=== PATIENT | female | born 1945 | race Caucasian/White ===

== ENCOUNTER → 2016-08-06 | Outpatient (CLI) | payer MEDICARE ==
--- NOTE | 2016-08-06 08:55 | REP ---
PA and lateral chest: Comparison is 01/22/2010. There is a moderate diffuse bilateral interstitial coarsening, not significantly change taking differences in radiographic penetration and/or. This suggests chronic lung disease. There are no acute infiltrates or effusions. No masses. There is thoracic scoliosis convex left, superiorly and right in the mid thoracic spine. This is not significantly changed. Calcified left hilar nodes are again noted, unchanged. The kendall, mediastinum, bony thorax are otherwise unremarkable. Impression: There are no new or acute cardiopulmonary findings. There are chronic stable findings as described.
== END ==
LOC: M CLY 08:14
PROVIDERS: ATTEND Family Medicine
DX: R05 Cough (principal)

== ENCOUNTER → 2016-08-16 | Outpatient (REF) | payer MEDICARE | LOC: M SFHCCLAY 11:08 | PROVIDERS: ATTEND Family Medicine | DX: R30.0 Dysuria (principal) ==

== ENCOUNTER → 2016-08-29 | Outpatient (REF) | payer MEDICARE | LOC: M SFHCCLAY 11:50 | PROVIDERS: ATTEND Family Medicine | DX: R50.9 Fever, unspecified (principal); R52 Pain, unspecified; R30.0 Dysuria ==

== ENCOUNTER → 2018-01-12 | Outpatient (REF) | payer MEDICARE | LOC: M SFHCCLAY 16:40 | DX: R30.0 Dysuria (principal) | CPT/HCPCS: 87086 ==

== ENCOUNTER → 2018-01-19 | Outpatient (CLI) | payer MEDICARE | LOC: M CLY 09:44 | DX: R05 Cough (principal); R06.02 Shortness of breath | CPT/HCPCS: 71046 ==

== ENCOUNTER → 2018-03-02 | Outpatient (CLI) | payer MEDICARE ==
--- NOTE | 2018-03-02 10:59 | PFTRPT ---
Height: 63.00 Inches Weight: 137.00 Lbs BSA: 1.65 Diagnosis: R06.02 DATE OF PROCEDURE: 03/02/2018 ORDERED BY: Dr. Celestina Fox Spirometry: Study of excellent technical quality. Forced vital capacity normal. FEV1 is in proportion. Obstructive index is, therefore, normal. Flow Volume Loop: Expiratory limb of the flow volume loop is normal. Lung Volumes: Total lung capacity normal. Residual volume is in proportion. Diffusing Capacity: Diffusing capacity is significantly reduced and does not correct for alveolar volume. Hemoglobin: No hemoglobin available for correction. Airway Mechanics: Airways resistance and conductance are normal. IMPRESSION: Significant diffusing capacity impairment. Please correlate clinically. MTDD
== END ==
LOC: M CARPUL 06:40
PROVIDERS: ATTEND Family Medicine
DX: R06.02 Shortness of breath (principal); J84.10 Pulmonary fibrosis, unspecified

== ENCOUNTER → 2018-03-24 | Outpatient (REF) | payer MEDICARE ==
[2018-03-24 18:37] LABS: BLOOD UREA NITROGEN 22 MG/DL (7-18); CALCIUM LEVEL 8.6 MG/DL (8.8-10.2); CARBON DIOXIDE LEVEL 28 MEQ/L (21-32); CHLORIDE LEVEL 108 MEQ/L (98-107); CREATININE FOR GFR 0.75 MG/DL (0.55-1.30); GLOMERULAR FILTRATION RATE > 60.0 (>39); GLUCOSE, FASTING 83 MG/DL (70-100); POTASSIUM SERUM 4.2 MEQ/L (3.5-5.1); SODIUM LEVEL 143 MEQ/L (136-145)
[2018-03-24 18:41] LABS: CHOLESTEROL RISK RATIO 3.381 (<5)
== END ==
LOC: M SFHCCLAY 09:38
PROVIDERS: ATTEND Family Medicine
DX: Z83.3 Family history of diabetes mellitus (principal); Z13.1 Encounter for screening for diabetes mellitus; Z13.220 Encounter for screening for lipoid disorders

== ENCOUNTER → 2018-03-27 | Outpatient (CLI) | payer MEDICARE ==
[2018-03-31 01:34] LABS: ANCA-ATYPICAL <1:20 titer (Neg:<1:20); ANTI DOUBLE STRAND-DNA AB 2 IU/mL (0-9); ANTINUCLEAR ANTIBODIES DIRECT Negative (Negative); CYTOPLASMIC NEUTROP AB ANCA-C <1:20 titer (Neg:<1:20); PERINUCLEAR AB ANCA-P <1:20 titer (Neg:<1:20); RNP ANTIBODIES 0.3 AI (0.0-0.9); SJOGREN'S ANTI SS-A <0.2 AI (0.0-0.9); SJOGREN'S ANTI SS-B <0.2 AI (0.0-0.9); SMITH ANTIBODIES <0.2 AI (0.0-0.9)
== END ==
LOC: M SMT 10:41
PROVIDERS: ATTEND Internal Medicine Pulmonary Disease
DX: R91.8 Other nonspecific abnormal finding of lung field (principal)

== ENCOUNTER → 2018-04-07 | Outpatient (CLI) | payer MEDICARE ==
--- NOTE | 2018-04-07 11:53 | REP ---
CT of the chest without IV contrast: Comparison studies are the plain film PA and lateral views of the chest dated 01/19/2018, 08/06/2016 and 02/01/2010. There are no acute infiltrates or pleural effusions. There is a 9 mm left lower lobe lung nodule on image 128. There is a diffuse interstitial coarsening throughout all lobes of both lungs. Additionally there is subpleural honeycombing predominately in the lower lobes bilaterally. Findings are compatible with chronic interstitial lung disease and interstitial fibrosis. There is no mediastinal or axillary lymph node enlargement. There are multiple calcified anterior mediastinal lymph nodes, likely granulomas disease. The study is insensitive for hilar lymph node enlargement in the absence of IV contrast. In the visualized upper abdomen. There are multiple calcified granulomas in the spleen. There are nonobstructive calculi in the visualized portion of the left renal upper pole, there is a right renal upper pole cyst. Impression: Diffuse coarsened interstitium accompanied by some pleural honeycombing predominately in the lung bases compatible with chronic interstitial lung disease and interstitial fibrosis. There are no acute infiltrates or pleural effusions. There is a left lower lobe 9 mm nodule. There are calcified granulomas in the anterior mediastinum and spleen. There are nonobstructive left renal calculi. There is a right renal upper pole cyst. Electronically Signed by Bear Damon MD 04/07/2018 11:44 A
== END ==
LOC: M RAD 09:04
PROVIDERS: ATTEND Internal Medicine Pulmonary Disease
DX: R91.8 Other nonspecific abnormal finding of lung field (principal)

== ENCOUNTER → 2018-04-29 | Outpatient (REF) | payer MEDICARE ==
[2018-04-29 12:02] LABS: INR 0.94; PARTIAL THROMBOPLASTIN TIME 28.6 SECONDS (25.4-37.6); PROTHROMBIN TIME 12.7 SECONDS (12.1-14.4)
== END ==
LOC: M LABDRAWC 11:21
PROVIDERS: ATTEND Internal Medicine Pulmonary Disease
DX: R91.1 Solitary pulmonary nodule (principal)

== ENCOUNTER → 2018-05-04 | Outpatient (CLI) | payer MEDICARE ==
[~2018-05-04] MED LIST: LIDOCAINE 1% MDV 20ML VIAL As Ordered ONE
--- NOTE | 2018-05-04 12:03 | REP ---
CHEST, SINGLE VIEW: Single view of the chest is performed status post left lung biopsy. There is no pneumothorax. There are fibrotic changes again noted bilaterally, more so in the lung bases. Cardiomediastinal silhouette is unchanged. IMPRESSION: No pneumothorax status post left lung biopsy. Electronically Signed by Bear Donahue MD 05/06/2018 10:54 A
--- NOTE | 2018-05-05 21:11 | REP ---
CT-GUIDED LEFT LOWER LOBE LUNG BIOPSY The procedure was performed under the direct supervision of Dr. Donahue. The patient has a history of a 9 mm nodule in the left lower lobe seen on a previous CT scan dated 04/07/2018. The risks and benefits of the procedure were explained to the patient and informed consent was obtained. The left lower lobe nodule was localized using CT guidance. The skin was prepped and draped in a sterile fashion. 1% lidocaine was used as a local anesthetic. Using CT guidance a 19/20 gauge coaxial needle biopsy system was inserted and advanced into the nodule. Four core biopsy samples were obtained and sent to lab. The patient tolerated the procedure well and there were no immediate complications. After the appropriate amount of monitored convalescence the patient was discharged from the department. Reviewed by KRAIG Ann 05/04/2018 03:17 P Electronically Signed by Bear Donahue MD 05/05/2018 09:03 P
== END ==
LOC: M RADPRO 08:08
PROVIDERS: ATTEND Internal Medicine Pulmonary Disease
DX: D14.32 Benign neoplasm of left bronchus and lung (principal)

== ENCOUNTER → 2018-06-02 | Outpatient (REF) | payer MEDICARE | LOC: M SFHCCLAY 09:26 | PROVIDERS: ATTEND Family Medicine | DX: M81.0 Age-related osteoporosis without current pathological fracture (principal) ==

== ENCOUNTER → 2018-08-31 | Outpatient (CLI) | payer MEDICARE ==
--- NOTE | 2018-08-31 13:08 | REP ---
A CT of the chest without IV contrast: Comparison is 02/04/2019. There is a 9 mm lung nodule in the left lower lobe on image 41. This is unchanged. Diffuse interstitial coarsening and sub pleural honeycombing are again identified, compatible with chronic lung disease and compatible with the clinical diagnosis of pulmonary fibrosis. There are no acute infiltrates or pleural effusions. There is a borderline enlarged pretracheal lymph node measuring up to 9 mm in diameter. This is unchanged. No other mediastinal lymph node enlargement is identified. There is no axillary lymph node enlargement. The study is insensitive for hilar lymph node enlargement in the absence of IV contrast. Calcified granulomas are again identified in the anterior mediastinum and spleen. The thoracic aorta is unremarkable. Cardiac size is normal. The visualized upper abdomen is unremarkable except for splenic calcified granulomas. There is no adrenal mass. Impression: The 9 ml left lower lobe lung nodule is unchanged. The pulmonary fibrosis is unchanged. The calcified granulomas are unchanged. The renal calculi identified previously are not included on the current study. The right renal upper pole cyst is unchanged. Electronically Signed by Bear Damon MD 08/31/2018 12:58 P
== END ==
LOC: M RAD 11:31
PROVIDERS: ATTEND Internal Medicine Pulmonary Disease
DX: J84.112 Idiopathic pulmonary fibrosis (principal); N28.1 Cyst of kidney, acquired

== ENCOUNTER → 2019-06-22 | Outpatient (REF) | payer MEDICARE ==
[2019-06-22 17:25] LABS: FREE T4 0.99 NG/DL (0.76-1.46); THYROID STIMULATING HORMONE 3.01 uIU/ML (0.358-3.740)
== END ==
LOC: M SFHCCLAY 11:33
PROVIDERS: ATTEND Family Medicine
DX: R79.89 Other specified abnormal findings of blood chemistry (principal); R00.2 Palpitations

== ENCOUNTER → 2019-09-01 | Outpatient (REF) | payer MEDICARE | LOC: M SFHCCLAY 11:25 | PROVIDERS: ATTEND Family Medicine | DX: C44.310 Basal cell carcinoma of skin of unspecified parts of face (principal) ==

== ENCOUNTER → 2019-09-06 | Outpatient (CLI) | payer MEDICARE ==
--- NOTE | 2019-09-06 11:26 | REP ---
Clinical: History of pulmonary fibrosis. Technique: Axial noncontrast images from the thoracic inlet to the upper abdomen with coronal and sagittal re-formations. Comparison: 08/31/2018. Findings: The advanced subpleural fibrosis again noted. 9 mm noncalcified nodule in the apical left lower lobe is again identified and essentially unchanged. No further consolidation, nodule, or effusion. No pneumothorax. Tracheobronchial tree is patent. Mediastinal adenopathy again noted and stable. Mild stable cardiomegaly and atherosclerotic changes to the thoracic aorta and coronary arteries again noted. No pericardial effusion. Musculoskeletal structures without acute abnormality. Limited upper abdomen demonstrates normal bilateral adrenal glands. Impression: 9 mm noncalcified nodule in the apical left lower lobe remains stable. Advanced subpleural fibrosis and mediastinal adenopathy unchanged. No new acute process. Electronically Signed by Boby Obando MD 09/06/2019 11:17 A
== END ==
LOC: M RAD 10:29
PROVIDERS: ATTEND Internal Medicine Pulmonary Disease
DX: J84.10 Pulmonary fibrosis, unspecified (principal)

== ENCOUNTER → 2019-10-14 | Outpatient (REF) | payer MEDICARE | LOC: M LAB REF 08:10 | PROVIDERS: ATTEND Dermatology | DX: C44.319 Basal cell carcinoma of skin of other parts of face (principal) ==

== ENCOUNTER → 2020-02-24 | Outpatient (CLI) | payer MEDICARE ==
--- NOTE | 2020-02-24 15:37 | PFTRPT ---
Height: 63.00 Inches Weight: 135.00 Lbs BSA: 1.64 Diagnosis: J84.112 DATE: 02/24/2020 ORDERED BY: John Paul Watson M.D. Pre and post bronchodilator studies have excellent technical quality. Forced vital capacity is normal.. FEV1 is in proportion. Obstructive index is therefore normal. Expiratory limit of the flow-volume loop is normal. No significant bronchodilator response is identified. Total lung capacity is normal. Residual volume is in proportion. Diffusing capacity is severely reduced and does not correct for alveolar volume. Hemoglobin is acceptable at 12.8. Airway resistance and conductance are normal. IMPRESSION: Severe reduction in the absolute diffusion capacity. Please correlate clinically. MTDD
== END ==
LOC: M CARPUL 13:20
PROVIDERS: ATTEND Internal Medicine Pulmonary Disease
DX: J84.112 Idiopathic pulmonary fibrosis (principal)

== ENCOUNTER → 2020-08-22 | Outpatient (CLI) | payer MEDICARE ==
--- NOTE | 2020-08-22 09:00 | REP ---
INDICATION: PULM NODULE, IDEOPATHIC PULM FIBROSIS COMPARISON: Multiple examinations dating through 04/07/2018 TECHNIQUE: Axial noncontrast images from the thoracic inlet to the upper abdomen with coronal and sagittal reformations. This CT examination was performed using the following dose reduction techniques: Automated exposure control, adjustment of mA and/or kv according to the patient's size, and use of iterative reconstruction technique. FINDINGS: Noncalcified 9 mm nodule in the apical left lower lobe (series 201; image 41) remains stable through 2019. A 7 mm noncalcified peribronchial nodule in the left upper lobe (series 201; image 38) in retrospect remains stable through 2019 as well. Diffuse advanced emphysematous disease and subpleural fibrosis along with bronchiectasis and scattered scarring again noted. No acute consolidation. No new suspicious nodule or mass. No effusion. No pneumothorax. Stable mediastinal/hilar adenopathy. Atherosclerotic changes to the thoracic aorta and coronary arteries unchanged. Skeletal structures without significant acute osseous abnormality. Incidental vertebral body hemangiomas suggested. IMPRESSION: 1. Stable noncalcified nodules unchanged compared to 2019. 2. Advanced COPD/emphysematous changes along with subpleural fibrosis, bronchiectasis and scattered scarring 3. No new acute mediastinal or pleuroparenchymal process appreciated. <Electronically signed by Boby Obando > 08/22/20 0263
== END ==
LOC: M RAD 07:00
PROVIDERS: ATTEND Internal Medicine Pulmonary Disease
DX: R91.8 Other nonspecific abnormal finding of lung field (principal); R91.1 Solitary pulmonary nodule; J44.9 Chronic obstructive pulmonary disease, unspecified; J84.112 Idiopathic pulmonary fibrosis

== ENCOUNTER → 2020-08-31 | Outpatient (REF) | payer MEDICARE ==
[2020-08-31 12:05] LABS: BASO # 0.1 10^3/uL (0.0-0.2); EOS # 0.1 10^3/uL (0.0-0.5); HEMATOCRIT 43.4 % (36.0-47.0); HEMOGLOBIN 13.5 g/dl (12.0-15.5); LYMPH # 2.2 10^3/uL (1.5-5.0); LYMPH % 32.1 % (24.0-44.0); MEAN CORPUSCULAR HEMOGLOBIN 27.7 pg (27.0-33.0); MEAN CORPUSCULAR HGB CONC 31.1 g/dl (32.0-36.5); MEAN CORPUSCULAR VOLUME 89.1 fl (80.0-96.0); MONO # 0.6 10^3/uL (0.0-0.8); NEUTROPHILS # 3.9 10^3/uL (1.5-8.5); NEUTROPHILS % 56.8 % (36.0-66.0); PLATELET COUNT, AUTOMATED 251 10^3/uL (150-450); RED BLOOD COUNT 4.87 10^6/uL (4.00-5.40); WHITE BLOOD COUNT 6.9 10^3/uL (4.0-10.0)
[2020-08-31 13:17] LABS: BLOOD UREA NITROGEN 15 MG/DL (7-18); CALCIUM LEVEL 8.9 MG/DL (8.8-10.2); CARBON DIOXIDE LEVEL 29 MEQ/L (21-32); CHLORIDE LEVEL 109 MEQ/L (98-107); CREATININE FOR GFR 0.74 MG/DL (0.55-1.30); FREE T4 0.89 NG/DL (0.76-1.46); GLOMERULAR FILTRATION RATE > 60.0 (>39); GLUCOSE, FASTING 83 MG/DL (70-100); MAGNESIUM LEVEL 2.5 MG/DL (1.8-2.4); POTASSIUM SERUM 4.6 MEQ/L (3.5-5.1); SODIUM LEVEL 142 MEQ/L (136-145)
== END ==
LOC: M SFHCCLAY 08:09
PROVIDERS: ATTEND Family Medicine
DX: R53.83 Other fatigue (principal); R25.2 Cramp and spasm

== ENCOUNTER → 2020-11-21 | Outpatient (CLI) | payer MEDICARE ==
--- NOTE | 2020-11-21 10:07 | REP ---
INDICATION: R05.9, COUGH COMPARISON: 05/04/2018 TECHNIQUE: PA and lateral. FINDINGS: Advanced COPD/emphysematous changes and scattered fibrosis/scarring. No obvious acute consolidation, effusion, or pneumothorax. A very subtle small nodule in the left mid lung zone is appreciated and appears stable when compared with CT examinations dating through 2019. Skeletal structures demonstrate age-related osteopenia and degenerative changes. IMPRESSION: 1. Diffuse chronic changes without acute consolidation or effusion. 2. If the patient remains symptomatic consider chest CT for further investigation. <Electronically signed by Boby Obando > 11/21/20 1002
== END ==
LOC: M CLY 09:34
PROVIDERS: ATTEND Physician Assistant
DX: R91.8 Other nonspecific abnormal finding of lung field (principal); R05.9 Cough, unspecified

== ENCOUNTER 2020-12-13 13:35 | Emergency (ER) | payer MEDICARE ==
[~2020-12-13] VITALS: Ht 160 cm; Wt 60.7 kg
--- OUTSIDE RECORDS SUMMARY | 2020-12-13 13:43 | CCD | Continuity of Care Document ---
Author Author Ellie SERNA MD Organization Unknown Address [address] [place] [address] Phone [phone] Care Team Providers Care Grocery Supervisor Name Role Phone Celestina Fox D.O. AUTM [phone] Problems Description No Information Available Social History Type Date Description Comments Sex Unknown ETOH Use Denies alcohol use Tobacco Use Start: 02/17/86 End: 02/17/01 Patient is a forme r smoker less than one ppd x 15 years Recreational Drug Use Denies Drug Use Smoking Status Reviewed: 12/07/20 Patient is a former smoker le ss than one ppd x 15 years Allergies and adverse reactions Active Allergies Criticality Reaction | Severity Comments Date Codeine Unable to assess criticality 03/27/2018 Cortisone Unable to assess criticality 03/27/2018 Medications Active Medications SIG Qnty Indications Ordering Provide r Date Ibuprofen 200mg Tablets 1 by mouth as needed Unknown Vitamin D 1000Unit Tablets 1 by mouth every day- in winter months Unknown 00/0 Mucinex 600mg Tablets ER 12HR take one by mouth every 12 hours. Unknown Immunizations Description No Information Available Vital Signs Date Vital Result Comment 12/07/2020 2:22pm BP Systolic 120 mmHg BP Diastolic 80 mmHg Heart Rate 77 /min O2 % BldC Oximetry 98 % Height 63 inches 5'3" Weight 135.00 lb BMI (Body Mass Index) 23.9 kg/m2 [place] Body Weight 115 lb Weight 61.236 kg BSA (Body Surface Area) 1.64 m2 09/01/2020 9:08am BP Systolic 128 mmHg BP Diastolic 82 mmHg Heart Rate 61 /min O2 % BldC Oximetry 98 % Body Temperature 97.2 F Height 63 inches 5'3" Weight 136.00 lb BMI (Body Mass Index) 24.1 kg/m2 [place] Body Weight 115 lb Weight 61.690 kg BSA (Body Surface Area) 1.64 m2 Results Description No Information Available Procedures Date Code Description Status 09/01/2020 05384 Office/Outpatient Established Mo d MDM 30-39 Min Completed 09/01/2020 19955 Diffusing Capacity Completed 09/01/2020 06313 Plethysmography Determination Michelle ng Volumes & Per Airway Resist Completed 09/01/2020 89085 Spirometry Completed Medical Devices Description No Information Available Encounters Type Date Location Provider Dx Diagnosis Office Visit 09/01/2020 10:30a [facility] Pulmonary/Thoracic Nevaeh Serna MD J84.112 Idiopathic pulmonary fibrosis R91.1 Solitary pulmonary nodule Z87.891 Personal history of nicotine dependence R91.8 Other nonspecific abnormal f inding of lung field Assessments Date Code Description Provider 12/07/2020 J84.112 Idiopathic pulmonary fibrosis Steffany Serna MD 12/07/2020 J84.112 Idiopathic pulmonary fibrosis Pu lmonary Lab 12/07/2020 R91.1 Solitary pulmonary nodule Julianne Serna MD 12/07/2020 R91.8 Other nonspecific abnormal findi ng of lung field John Paul Serna MD 12/07/2020 Z87.891 Personal history of nicotine dep mamadou Serna MD 09/01/2020 J84.112 Idiopathic pulmonary fibrosis Pu lmonary Lab 09/01/2020 J84.112 Idiopathic pulmonary fibrosis Steffany Serna MD 09/01/2020 R91.1 Solitary pulmonary nodule Julianne Serna MD 09/01/2020 Z87.891 Personal history of nicotine dep endence John Paul Serna MD 09/01/2020 R91.8 Other nonspecific abnormal findi ng of lung field John Paul Serna MD Plan of Treatment Future Appointment(s):* 09/06/2021 11:00 am - John Paul Serna MD at [facility] Pulmonary/Thoracic * 09/06/2021 10:00 am - Pulmonary Lab at [facility] PulmonaryThoracic 12/07/2020 - John Paul Serna MD* J84.112 Idiopathic pulmonary fibrosis * R91.1 Solitary pulmonary nodule * R91.8 Other nonspecific abnormal finding of lung field * Z87.891 Personal history of nicotine dependence * * New Labs:* PFT/HGB Off/No Meds, Ordered: 12/07/20 * Follow up:* August with CT chest/ PFTs Functional Status Description No Information Available Mental Status Description No Information Available Referrals Refer to Reason for Referral Status Appt Date Radiology/Procedure 17985 Closed 08/22/2020
--- OUTSIDE RECORDS SUMMARY | 2020-12-13 13:43 | CCD | Continuity of Care Document ---
Author Author Ellie SERNA MD Organization Unknown Address [address] [place] [address] Phone [phone] Care Team Providers Care Garment Form Assembler Name Role Phone Celestina Fox D.O. AUTM [phone] Problems Description No Information Available Social History [...] lb BMI (Body Mass Index) 23.9 kg/m2 [place] Body Weight 115 lb Weight 61.236 kg BSA (Body Surface Area) 1.64 m2 09/01/2020 9:08am BP Systolic 128 mmHg BP Diastolic 82 mmHg Heart Rate 61 /min O2 % BldC Oximetry 98 % Body Temperature 97.2 F Height 63 inches 5'3" Weight 136.00 lb BMI (Body Mass Index) 24.1 kg/m2 [place] Body Weight 115 lb Weight 61.690 kg BSA (Body Surface Area) 1.64 m2 Results Description No Information Available Procedures Date Code Description Status 09/01/2020 98568 Office/Outpatient Established Mo d MDM 30-39 Min Completed 09/01/2020 20516 Diffusing Capacity Completed 09/01/2020 34185 Plethysmography Determination Michelle ng Volumes & Per Airway Resist Completed 09/01/2020 89940 Spirometry Completed Medical Devices Description No Information Available Encounters Type Date Location Provider Dx Diagnosis Office Visit 09/01/2020 10:30a [facility] Pulmonary/Thoracic Nevaeh Serna MD J84.112 Idiopathic pulmonary [...] am - John Paul Serna MD at [facility] Pulmonary/Thoracic * 09/06/2021 10:00 am - Pulmonary Lab at [facility] PulmonaryThoracic 12/07/2020 - John Paul Serna MD* [...] Reason for Referral Status Appt Date Radiology/Procedure 91552 Closed 08/22/2020
--- OUTSIDE RECORDS SUMMARY | 2020-12-13 13:43 | CCD | Continuity of Care Document ---
Author Author Ellie SERNA MD Organization Unknown Address [address] [place] [address] Phone [phone] Care Team Providers Care Household Chores Name Role Phone Celestina Fox D.O. AUTM [phone] Problems Description No Information Available Social History [...] lb BMI (Body Mass Index) 23.9 kg/m2 [place] Body Weight 115 lb Weight 61.236 kg BSA (Body Surface Area) 1.64 m2 09/01/2020 9:08am BP Systolic 128 mmHg BP Diastolic 82 mmHg Heart Rate 61 /min O2 % BldC Oximetry 98 % Body Temperature 97.2 F Height 63 inches 5'3" Weight 136.00 lb BMI (Body Mass Index) 24.1 kg/m2 [place] Body Weight 115 lb Weight 61.690 kg BSA (Body Surface Area) 1.64 m2 Results Description No Information Available Procedures Date Code Description Status 09/01/2020 75605 Office/Outpatient Established Mo d MDM 30-39 Min Completed 09/01/2020 49333 Diffusing Capacity Completed 09/01/2020 44654 Plethysmography Determination Michelle ng Volumes & Per Airway Resist Completed 09/01/2020 94772 Spirometry Completed Medical Devices Description No Information Available Encounters Type Date Location Provider Dx Diagnosis Office Visit 09/01/2020 10:30a [facility] Pulmonary/Thoracic Nevaeh Serna MD J84.112 Idiopathic [...] am - John Paul Serna MD at [facility] Pulmonary/Thoracic * 09/06/2021 10:00 am - Pulmonary Lab at [facility] PulmonaryThoracic 12/07/2020 - John Paul Serna [...] Reason for Referral Status Appt Date Radiology/Procedure 70702 Closed 08/22/2020
--- OUTSIDE RECORDS SUMMARY | 2020-12-13 13:43 | CCD | Continuity of Care Document ---
Author Author Ellie SERNA MD Organization Unknown Address [address] [place] [address] Phone [phone] Care Team Providers Care Drip Molder Name Role Phone Celestina Fox D.O. AUTM [phone] Problems Description No Information Available Social History [...] lb BMI (Body Mass Index) 23.9 kg/m2 [place] Body Weight 115 lb Weight 61.236 kg BSA (Body Surface Area) 1.64 m2 09/01/2020 9:08am BP Systolic 128 mmHg BP Diastolic 82 mmHg Heart Rate 61 /min O2 % BldC Oximetry 98 % Body Temperature 97.2 F Height 63 inches 5'3" Weight 136.00 lb BMI (Body Mass Index) 24.1 kg/m2 [place] Body Weight 115 lb Weight 61.690 kg BSA (Body Surface Area) 1.64 m2 Results Description No Information Available Procedures Date Code Description Status 09/01/2020 34316 Office/Outpatient Established Mo d MDM 30-39 Min Completed 09/01/2020 34866 Diffusing Capacity Completed 09/01/2020 75568 Plethysmography Determination Michelle ng Volumes & Per Airway Resist Completed 09/01/2020 13930 Spirometry Completed Medical Devices Description No Information Available Encounters Type Date Location Provider Dx Diagnosis Office Visit 09/01/2020 10:30a [facility] Pulmonary/Thoracic Nevaeh Serna MD J84.112 Idiopathic pulmonary [...] am - John Paul Serna MD at [facility] Pulmonary/Thoracic * 09/06/2021 10:00 am - Pulmonary Lab at [facility] PulmonaryThoracic 12/07/2020 - John Paul Serna MD* [...] Reason for Referral Status Appt Date Radiology/Procedure 61069 Closed 08/22/2020
--- OUTSIDE RECORDS SUMMARY | 2020-12-13 13:43 | CCD | Continuity of Care Document ---
Author Author Pulmonary Lab, Ellie Berger Organization Unknown Address [address] [place] [address] Phone [phone] Care Team Providers Care X Ray Inspector Name Role Phone Celestina Fox D.O. AUTM [phone] Problems Description No Information Available Social History [...] lb BMI (Body Mass Index) 23.9 kg/m2 [place] Body Weight 115 lb Weight 61.236 kg BSA (Body Surface Area) 1.64 m2 09/01/2020 9:08am BP Systolic 128 mmHg BP Diastolic 82 mmHg Heart Rate 61 /min O2 % BldC Oximetry 98 % Body Temperature 97.2 F Height 63 inches 5'3" Weight 136.00 lb BMI (Body Mass Index) 24.1 kg/m2 [place] Body Weight 115 lb Weight 61.690 kg BSA (Body Surface Area) 1.64 m2 Results Description No Information Available Procedures Date Code Description Status 12/07/2020 85093 Diffusing Capacity Completed 12/07/2020 45805 Plethysmography Determination Michelle ng Volumes & Per Airway Resist Completed 12/07/2020 92955 Spirometry Completed 09/01/2020 58506 Office/Outpatient Established Mo d MDM 30-39 Min Completed 09/01/2020 18264 Diffusing Capacity Completed 09/01/2020 84018 Plethysmography Determination Michelle ng Volumes & Per Airway Resist Completed 09/01/2020 25041 Spirometry Completed Medical Devices Description No Information Available Encounters Type Date Location Provider Dx Diagnosis Office Visit 09/01/2020 10:30a [facility] Pulmonary/Thoracic Nevaeh Watson MD J84.112 Idiopathic pulmonary fibrosis R91.1 Solitary pulmonary nodule Z87.891 Personal history of nicotine dependence R91.8 Other nonspecific abnormal f inding of lung field Assessments Date Code Description Provider 12/07/2020 J84.112 Idiopathic pulmonary fibrosis Steffany Watson MD 12/07/2020 J84.112 Idiopathic pulmonary fibrosis Pu lmonary Lab 12/07/2020 R91.1 Solitary pulmonary nodule Julianne Watson MD 12/07/2020 R91.8 Other nonspecific abnormal findi ng of lung field John Paul Watson MD 12/07/2020 Z87.891 Personal history of nicotine dep mamadou Watson MD 09/01/2020 J84.112 Idiopathic pulmonary fibrosis Pu lmonary Lab 09/01/2020 J84.112 Idiopathic pulmonary fibrosis Steffany Watson MD 09/01/2020 R91.1 Solitary pulmonary nodule Julianne Watson MD 09/01/2020 Z87.891 Personal history of nicotine dep endence John Paul Watson MD 09/01/2020 R91.8 Other nonspecific abnormal findi ng of lung field John Paul Watson MD Plan of Treatment Future Appointment(s):* 09/06/2021 11:00 am - John Paul Watson MD at [facility] Pulmonary/Thoracic * 09/06/2021 10:00 am - Pulmonary Lab at [facility] Pulmonary/Thoracic 12/07/2020 - John Paul Watson MD* J84.112 Idiopathic pulmonary fibrosis * R91.1 Solitary pulmonary nodule * R91.8 Other nonspecific abnormal finding of lung field * Z87.891 Personal history of nicotine dependence * * New Labs:* PFT/HGB Off/No Meds, Ordered: 12/07/20 * Comments:* ~ At this point, she is to continue her current regimen. No changes were made. She was applauded for her compliance.~ I did ask her to have her repeat pulmonary functions in 6 months. We will try to combine these with CT scan. That will be due in August, and she wonders if she can do them both then. Certainly, I have no problems with that. I will see her in return in the interim if problems arise with which we can be of assistance. * Follow up:* August with CT chest/ PFTs Functional Status Description No Information Available Mental Status Description No Information Available Referrals Refer to Reason for Referral Status Appt Date Radiology/Procedure 54516 Closed 08/22/2020
--- OUTSIDE RECORDS SUMMARY | 2020-12-13 13:43 | CCD | Continuity of Care Document ---
Author Author Pulmonary Lab, Ellie Berger Organization Unknown Address [address] [place] [address] Phone [phone] Care Team Providers Care Wireless Network Engineer Name Role Phone Ceelstina Fox D.O. AUTM [phone] Problems Description No Information Available Social History [...] lb BMI (Body Mass Index) 23.9 kg/m2 [place] Body Weight 115 lb Weight 61.236 kg BSA (Body Surface Area) 1.64 m2 09/01/2020 9:08am BP Systolic 128 mmHg BP Diastolic 82 mmHg Heart Rate 61 /min O2 % BldC Oximetry 98 % Body Temperature 97.2 F Height 63 inches 5'3" Weight 136.00 lb BMI (Body Mass Index) 24.1 kg/m2 [place] Body Weight 115 lb Weight 61.690 kg BSA (Body Surface Area) 1.64 m2 Results Description No Information Available Procedures Date Code Description Status 09/01/2020 92633 Office/Outpatient Established Mo d MDM 30-39 Min Completed 09/01/2020 46735 Diffusing Capacity Completed 09/01/2020 85765 Plethysmography Determination Michelle ng Volumes & Per Airway Resist Completed 09/01/2020 71180 Spirometry Completed Medical Devices Description No Information Available Encounters Type Date Location Provider Dx Diagnosis Office Visit 09/01/2020 10:30a [facility] Pulmonary/Thoracic Nevaeh Watson MD J84.112 Idiopathic pulmonary [...] am - John Paul Watson MD at [facility] Pulmonary/Thoracic * 09/06/2021 10:00 am - Pulmonary Lab at [facility] PulmonaryThoracic 12/07/2020 - John Paul Watson MD* J84.112 [...] Reason for Referral Status Appt Date Radiology/Procedure 77728 Closed 08/22/2020
--- OUTSIDE RECORDS SUMMARY | 2020-12-13 13:43 | CCD | Continuity of Care Document ---
Author Author Ellie SERNA MD Organization Unknown Address [address] [place] [address] Phone [phone] Care Team Providers Care Back Grinder Name Role Phone Celestina Fox D.O. AUTM [phone] Problems Description No Information Available Social History [...] lb BMI (Body Mass Index) 23.9 kg/m2 [place] Body Weight 115 lb Weight 61.236 kg BSA (Body Surface Area) 1.64 m2 09/01/2020 9:08am BP Systolic 128 mmHg BP Diastolic 82 mmHg Heart Rate 61 /min O2 % BldC Oximetry 98 % Body Temperature 97.2 F Height 63 inches 5'3" Weight 136.00 lb BMI (Body Mass Index) 24.1 kg/m2 [place] Body Weight 115 lb Weight 61.690 kg BSA (Body Surface Area) 1.64 m2 Results Description No Information Available Procedures Date Code Description Status 12/07/2020 18034 Office/Outpatient Established Mo d MDM 30-39 Min Completed 12/07/2020 01103 Diffusing Capacity Completed 12/07/2020 81929 Plethysmography Determination Michelle ng Volumes & Per Airway Resist Completed 12/07/2020 61184 Spirometry Completed 09/01/2020 68750 Office/Outpatient Established Mo d MDM 30-39 Min Completed 09/01/2020 55400 Diffusing Capacity Completed 09/01/2020 06570 Plethysmography Determination Michelle ng Volumes & Per Airway Resist Completed 09/01/2020 18992 Spirometry Completed Medical Devices Description No Information Available Encounters Type Date Location Provider Dx Diagnosis Office Visit 12/07/2020 3:15p [facility] Nevaeh Serna MD J84.112 Idiopathic pulmonary fibrosis R91.1 Solitary pulmonary nodule R91.8 Other nonspecific abnormal f inding of lung field Z87.891 Personal history of nicotine dependence Office Visit 09/01/2020 10:30a [facility] Nevaeh Serna MD J84.112 Idiopathic pulmonary [...] findi ng of lung field John Paul Seran MD 12/07/2020 Z87.891 Personal history of nicotine dep mamadou Serna MD 09/01/2020 J84.112 Idiopathic pulmonary fibrosis Pu [facility] 09/01/2020 J84.112 Idiopathic pulmonary fibrosis Steffany Serna MD 09/01/2020 R91.1 Solitary pulmonary nodule Julianne Serna MD 09/01/2020 Z87.891 Personal history of nicotine dep endnara Serna MD 09/01/2020 R91.8 Other nonspecific abnormal findi ng of lung field John Paul Serna MD Plan of Treatment Future Appointment(s):* 09/06/2021 11:00 am - John Paul Serna MD at [facility] * 09/06/2021 10:00 am - Pulmonary Lab at [facility] 12/07/2020 - John Paul Serna MD* J84.112 [...] Reason for Referral Status Appt Date Radiology/Procedure 38334 Closed 08/22/2020
--- OUTSIDE RECORDS SUMMARY | 2020-12-13 13:43 | CCD | Continuity of Care Document ---
Author Author [facility] Organization Unknown Address [address] [place] [address] Phone [phone] Care Team Providers Care Potter Or Ceramic Artist Name Role Phone Celestina Fox D.O. AUTM [phone] Problems Description No Information Available Social History [...] lb BMI (Body Mass Index) 23.9 kg/m2 [place] Body Weight 115 lb Weight 61.236 kg BSA (Body Surface Area) 1.64 m2 09/01/2020 9:08am BP Systolic 128 mmHg BP Diastolic 82 mmHg Heart Rate 61 /min O2 % BldC Oximetry 98 % Body Temperature 97.2 F Height 63 inches 5'3" Weight 136.00 lb BMI (Body Mass Index) 24.1 kg/m2 [place] Body Weight 115 lb Weight 61.690 kg BSA (Body Surface Area) 1.64 m2 Results Description No Information Available Procedures Date Code Description Status 09/01/2020 77932 Office/Outpatient Established Mo d MDM 30-39 Min Completed 09/01/2020 72144 Diffusing Capacity Completed 09/01/2020 32935 Plethysmography Determination Michelle ng Volumes & Per Airway Resist Completed 09/01/2020 83843 Spirometry Completed Medical Devices Description No Information Available Encounters Type Date Location Provider Dx Diagnosis Office Visit 09/01/2020 10:30a [facility] Nevaeh Watson MD J84.112 Idiopathic pulmonary [...] am - John Paul Watson MD at [facility] * 09/06/2021 10:00 am - Pulmonary Lab at [facility] 12/07/2020 - John Paul Watson MD* [...] Reason for Referral Status Appt Date Radiology/Procedure 53122 Closed 08/22/2020
--- OUTSIDE RECORDS SUMMARY | 2020-12-13 13:43 | CCD | Continuity of Care Document ---
Author Author [facility] Organization Unknown Address [address] [place] [address] Phone [phone] Care Team Providers Care Barber Stylist Name Role Phone Celestina Fox D.O. AUTM [phone] Problems Description No Information Available Social History [...] lb BMI (Body Mass Index) 23.9 kg/m2 [place] Body Weight 115 lb Weight 61.236 kg BSA (Body Surface Area) 1.64 m2 09/01/2020 9:08am BP Systolic 128 mmHg BP Diastolic 82 mmHg Heart Rate 61 /min O2 % BldC Oximetry 98 % Body Temperature 97.2 F Height 63 inches 5'3" Weight 136.00 lb BMI (Body Mass Index) 24.1 kg/m2 [place] Body Weight 115 lb Weight 61.690 kg BSA (Body Surface Area) 1.64 m2 Results Description No Information Available Procedures Date Code Description Status 09/01/2020 45049 Office/Outpatient Established Mo d MDM 30-39 Min Completed 09/01/2020 04835 Diffusing Capacity Completed 09/01/2020 05723 Plethysmography Determination Michelle ng Volumes & Per Airway Resist Completed 09/01/2020 34814 Spirometry Completed Medical Devices Description No Information Available Encounters Type Date Location Provider Dx Diagnosis Office Visit 09/01/2020 10:30a [facility] Nevaeh Watson MD J84.112 Idiopathic pulmonary [...] am - John Paul Watson MD at [facility] * 09/06/2021 10:00 am - Pulmonary Lab at [facility] 12/07/2020 - John Paul Watson MD* [...] Reason for Referral Status Appt Date Radiology/Procedure 36596 Closed 08/22/2020
--- OUTSIDE RECORDS SUMMARY | 2020-12-13 13:44 | CCD ---
Author Author [facility] Organization [facility] Address Unknown Phone Unavailable Care Team Providers Care Autocad Name Role Phone Ricardo Ross Unavailable PROBLEMS Type Condition ICD9-CM Code [id number] Code Onset Dates Condition S tatus W/U Status Risk SNOMED Code Notes Problem Tremor R25.1 Active confirmed 53142957 Problem Hearing loss, unspecified hearing loss type, uns pecified laterality H91.90 Active confirmed 08205427 Problem Worsening vision H54.7 Active confirmed 225 367894 Problem Basal cell carcinoma, forehead C44.319 Active confi rmed 807672495 Problem Hx of basal cell carcinoma Z85.828 Active confirmed 644876790 Problem Age-related osteoporosis without current pathological fracture M81.0 Active confirmed 11498771 Problem Pulmonary fibrosis J84.10 Active confirmed 5 8419348 Problem Vitamin D deficiency E55.9 Active confirmed 79324149 Problem Tinnitus, left H93.12 Active confirmed 97413 [id number] ALLERGIES Allergen (clinical drug ingredient) Drug/Non Drug Allergy do cumented on EMR Reaction Allergy Type Onset Date Status codeine Codeine Sulfate(NDC Code:[address]-68) N/V Drug Al lergy Active Cortisone Skin came off foot,rash Drug Allergy Active cefdinir Cefdinir(NDC Code:[address]-90) Lack of effect for UTI Dr corbett Allergy Active ENCOUNTERS from 1944 to 2020-11-24 Encounter Location Date Provider Diagnosis [facility] [phone] [place] [address] Nov, Ricardo [place] Cough R05.9 ; Acute bronchitis, unspecif ied organism J20.9 and Pulmonary fibrosis J84.10 IMMUNIZATIONS Vaccine Route Administration Date Status Moderna #2 dose COVID-19 (given elsewhere) SARSCOV2 VA C 100MCG/0.5ML IM IM Intramuscular May 08, 2020 Administered Influenza 18 yrs & older Flublok IM Intramuscular Dec 08, 2019 Administered Influenza 18 yrs & older Flublok IM Intramuscular Mar 24, 2018 Administered Influenza (High Dose 65 & up) IM Intramuscular Mar 10, 2017 A dministered Influenza (High Dose 65 & up) IM Intramuscular Mar 01, 2015 A dministered Pneumococcal Adult 0.5mL Pneumovax 23 IM Intramuscular Nov 15, 2013 Administered Moderna #1 dose COVID-19 (given elsewhere) SARSCOV2 VA C 100MCG/0.5ML IM IM Intramuscular Apr 13, 2020 Administered Pneumococcal 0.5mL Prevnar 13 IM Intramuscular Mar 01, 2015 A dministered Influenza 6mo & up Fluzone IM Intramuscular Nov 15, 2013 Admi nistered Influenza 6mo & up Fluzone IM Intramuscular Dec 26, 2010 Admi nistered SOCIAL HISTORY Tobacco Use: Social History Observation Description Date Details (start date - stop date) Former Smoker Sex Assigned At : Social History Observation Description Sex Assigned At Unknown Audit Question Answer Notes Total Score: 1 Interpretation: Alcohol Education Language: Question Answer Notes Languages spoken: Argentine Christian: Question Answer Notes Christian No caodaism beliefs that would impact health care. Sexual Hx: Question Answer Notes Had sex in the last 12 months (vaginal, oral, or anal)? No Have you ever had an STD? No Drug and Alcohol Question Answer Notes Total Score: 0 Interpretation: No problems reported Alcohol Screening: Question Answer Notes Did you have a drink containing alcohol in the past year? Ye s Points 1 Interpretation Negative How often did you have six or more drinks on one occas ion in the past year? Never (0 points) How many drinks did you have on a typica l day when you were drinking in the past year? 1 or 2 (0 points) How often did you have a drink containing alcohol in t he past year? Monthly or less (1 point) Tobacco Use: Question Answer Notes Are you a: former smoker former smoker quit 2 003 Additional Findings: Tobacco User no Additional Findings: Tobacco Non-User Current non-smoker How long has it been since you last smoked? > 10 years REASON FOR REFERRAL No Information VITAL SIGNS Weight 133 lbs Nov, Height 63 in Nov, BMI 23.56 kg/m2 Nov, Heart Rate 76 /min Nov, Respiratory Rate 18 /min Nov, Temperature 98.2 degrees Fahrenheit Nov, Oximetry 97 Nov, Blood pressure systolic 132 mm Hg Nov, Blood pressure diastolic 85 mm Hg Nov, MEDICATIONS Medication SIG (Take, Route, Frequency, Duration) Notes Start Da te End Date Status Vitamin D3 5000 UNIT/0.5ML 0.25 ml Orally Once a day for 30 day( s) May, Not-Taking Tessalon Perles 100 MG 1 capsule as needed Orally T hree times a day for 10 day(s) Nov, Active Ibuprofen 200 MG 1 tablet Orally PRN Not-Taking Doxycycline Monohydrate 100 MG 1 capsule Orally every 12 hrs for 10 day(s) Nov, Active PROCEDURES No Information RESULTS Component Value Reference Range MYRIAM CHEST 2 VIEW Reviewed date:11/21/2020 10:32:44 Interpretation:Chronic changes with no acute consolidation Performing Lab:[facility],[address]], ,[place] [address] REASON FOR VISIT cough/congestion MEDICAL (GENERAL) HISTORY Type Description Date Medical History Hyperlipidemia Medical History Hypertension Medical History Kidney stone Medical History Knee fracture: 04/2009: slip on ice Surgical History Cataracts, bilaterally 2001,2006 Surgical History Tonsillectomy As child Surgical History Tubal ligation 1970 Surgical History Teeth extraction 2009 Surgical History Colonoscopy 06/28/2015 Surgical History Lung biopsy- Dr. Watson 04/2018 Hospitalization History [facility]-kidney stone 09/04/16 Goals Section No Information Health Concerns No Information MEDICAL EQUIPMENT No Information MENTAL STATUS No Information FUNCTIONAL STATUS No Information ASSESSMENTS Encounter Date Diagnosis Assessment Notes Treatment Notes Treatm ent Clinical Notes Nov, Acute bronchitis, unspecified organism (ICD-10 - J20.9) You have bronchitis at this time, which is usually caused by a viral infection. Unfortunately, antibiotics do not help with viral infections. They are usually benign and self-limited infections, so treatment is based on symptomatic relief. However, because of your worsening symptoms and lung disease, you are at risk of having a bacterial infection. Rest and drink clear fluids throughout the day. You may use humidification and saline irrigation to help with the congestion. You may also take motrin or tylenol as needed for pain or fever. You may also consider using kaud-ysy-cljdxgt decongestant medication as needed. Viral infections sometimes may last 10-14 days before resolving completely. Use albuterol as needed to help with breathing and inflammation in the lungs. Nov, Cough (ICD-10 - R05.9) Nov, Pulmonary fibrosis (ICD-10 - J84.10) Nov, Other Medication/s di scussed with patient and questions answered. RTC as needed for worsening or unresolved symptoms. Patient states understanding and agreement with this plan. PLAN OF TREATMENT Medication Medication Name Sig Start Date Stop Date Doxycycline Monohydrate 100 MG 1 capsule Orally every 12 hrs for 10 day(s) Nov, Tessalon Perles 100 MG 1 capsule as needed Orally T hree times a day for 10 day(s) Nov, Treatment Notes Assessment Notes Clinical Notes Acute bronchitis, unspecified organism You have bronch itis at this time, which is usually caused by a viral infection. Unfortunately, antibiotics do not help with viral infections. They are usually benign and self-limited infections, so t reatment is based on symptomatic relief. However, because of your worsening symptoms and lung disease, you are at risk of having a bacterial infection. Rest and drink clear fluids throughout the day. You may use humidification and saline irrigation to help with the congestion. You may also take motrin or tylenol as needed for pain or fever. You may also consider using obsg-ika-acpyrez decongestant medication as needed. Viral infections sometimes may last 10-14 days before resolving completely. Use albuterol as needed to help with breathing and inflammation in the lungs. Next Appt Details 2 - 3 Days unless improving Reason: Provider Name:Stacy Prince, 2020-12-27 08:15:00 AM, [address] [place] [address], , [place], [address], Provider Name:Celestina Fox, 2021-08 08:30:00 AM, [address] [place] [address], , [place], [address], Insurance Providers Payer Name Payer Address Payer Phone Insured Name Patient Relati onship to Insured Coverage Start Date Coverage End Date MEDICARE BLUE PPO [phone] [address] [place] MEHTA self
--- OUTSIDE RECORDS SUMMARY | 2020-12-13 13:44 | CCD | Continuity of Care Document ---
Author Author [facility] Organization Unknown Address [address] [place] [address] Phone [phone] Care Team Providers Care Solar Electric/Photovoltaic Installer Name Role Phone Celestina Fox D.O. AUTM [phone] Problems Description No Information Available Social History [...] lb BMI (Body Mass Index) 23.9 kg/m2 [place] Body Weight 115 lb Weight 61.236 kg BSA (Body Surface Area) 1.64 m2 09/01/2020 9:08am BP Systolic 128 mmHg BP Diastolic 82 mmHg Heart Rate 61 /min O2 % BldC Oximetry 98 % Body Temperature 97.2 F Height 63 inches 5'3" Weight 136.00 lb BMI (Body Mass Index) 24.1 kg/m2 [place] Body Weight 115 lb Weight 61.690 kg BSA (Body Surface Area) 1.64 m2 Results Description No Information Available Procedures Date Code Description Status 09/01/2020 51190 Office/Outpatient Established Mo d MDM 30-39 Min Completed 09/01/2020 57435 Diffusing Capacity Completed 09/01/2020 19744 Plethysmography Determination Michelle ng Volumes & Per Airway Resist Completed 09/01/2020 06851 Spirometry Completed Medical Devices Description No Information Available Encounters Type Date Location Provider Dx Diagnosis Office Visit 09/01/2020 10:30a [facility] Nevaeh Watson MD J84.112 Idiopathic pulmonary fibrosis R91.1 Solitary pulmonary nodule Z87.891 Personal history of nicotine dependence R91.8 Other nonspecific abnormal f inding of lung field Assessments Date Code Description Provider 12/07/2020 J84.112 Idiopathic pulmonary fibrosis Steffany Watson MD 12/07/2020 J84.112 Idiopathic pulmonary fibrosis Pu lmonary Lab 12/07/2020 R91.1 Solitary pulmonary nodule Jluianne Watson MD 12/07/2020 R91.8 Other nonspecific abnormal [...] am - John Paul Watson MD at [facility] * 09/06/2021 10:00 am - Pulmonary Lab at [facility] 12/07/2020 - John Paul Watson [...] Reason for Referral Status Appt Date Radiology/Procedure 58929 Closed 08/22/2020
--- OUTSIDE RECORDS SUMMARY | 2020-12-13 13:44 | CCD ---
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 Sap Crm Developer Name Role Phone Heath Watson MD Unavailable Unavailable Heath Watson MD Unavailable Unavailable Heath Watson MD Unavailable Unavailable Heath Watson MD Unavailable Unavailable Heath Watson MD Unavailable Unavailable Heath Watson MD Unavailable Unavailable Heath Watson MD Unavailable Unavailable Heath Watson MD Unavailable Unavailable Heath Watson MD Unavailable Unavailable Heath Watson MD Unavailable Unavailable Heath Watson MD Unavailable Unavailable Heath Watson MD Unavailable Unavailable Heath Watson MD Unavailable Unavailable Heath Watson MD Unavailable Unavailable Heath Watson MD Unavailable Unavailable Heath Watson MD Unavailable Unavailable Heath Watson MD Unavailable Unavailable Heath Watson MD Unavailable Unavailable Heath Watson MD Unavailable Unavailable Heath Watson MD Unavailable Unavailable Heath Watson MD Unavailable Unavailable Heath Watson MD Unavailable Unavailable Heath Watson MD Unavailable Unavailable Heath Watson MD Unavailable Unavailable Heath Watson MD Unavailable Unavailable Heath Watson MD Unavailable Unavailable Heath Watson MD Unavailable Unavailable Heath Watson MD Unavailable Unavailable Heath Watson MD Unavailable Unavailable Heath Watson MD Unavailable Unavailable Heath Watson MD Unavailable Unavailable Heath aWtson MD Unavailable Unavailable Heath Watson MD Unavailable Unavailable Heath Watson MD Unavailable Unavailable Heath Watson MD Unavailable Unavailable Watson, Heath Coker MD Unavailable Unavailable Watson, Heath Coker MD Unavailable Unavailable Watson, Heath Coker MD Unavailable Unavailable Watson, Heath Coker MD Unavailable Unavailable Watson, Heath Coker MD Unavailable Unavailable Watson, Heath Coker MD Unavailable Unavailable Watson, Heath Coker MD Unavailable Unavailable Watson, Heath John Paul MD Unavailable Unavailable Watson, Heath John Paul MD Unavailable Unavailable Watson, Heath John Paul MD Unavailable Unavailable Watson, Heath John Paul MD Unavailable Unavailable Watson, Heath Coker MD Unavailable Unavailable Watson, Heath Coker MD Unavailable Unavailable Watson, Heath Coker MD Unavailable Unavailable Watson, Heath Coker MD Unavailable Unavailable Watson, Heath Coker MD Unavailable Unavailable Watson, Heath Coker MD Unavailable Unavailable Watson, Heath Coker MD Unavailable Unavailable Watson, Heath Coker MD Unavailable Unavailable Re-disclosure Warning The records that you are about to access may contain information from federally-assisted alcohol or drug abuse programs. If such information is present, then the following federally mandated warning applies: This information has been disclosed to you from records protected by federal confidentiality rules (42 CFR part 2). The federal rules prohibit you from making any further disclosure of this information unless further disclosure is expressly permitted by the written consent of the person to whom it pertains or as otherwise permitted by 42 CFR part 2. A general authorization for the release of medical or other information is NOT sufficient for this purpose. The Federal rules restrict any use of the information to criminally investigate or prosecute any alcohol or drug abuse patient.The records that you are about to access may contain highly sensitive health information, the redisclosure of which is protected by Article 27-F of the [facility] Public Health law. If you continue you may have access to information: Regarding HIV / AIDS; Provided by facilities licensed or operated by the [facility] Office of Mental Health; or Provided by the [facility] Office for People With Developmental Disabilities. If such information is present, then the following [facility] mandated warning applies: This information has been disclosed to you from confidential records which are protected by state law. State law prohibits you from making any further disclosure of this information without the specific written consent of the person to whom it pertains, or as otherwise permitted by law. Any unauthorized further disclosure in violation of state law may result in a fine or senior care sentence or both. A general authorization for the release of medical or other information is NOT sufficient authorization for further disc losure. Family History Family Member Name Family Member Gender Family Member Status Date o f Status Description Data Source(s) Unknown Unknown Problem MEDENT ([facility], ) Unknown Female Problem MEDENT ([facility]) Unknown Female Problem MEDENT ([facility]) Unknown Female Problem MEDENT ([facility]) Unknown Female Problem MEDENT ([facility]) Encounters Encounter Providers Location Date Indications Data Source(s ) Outpatient Attender: John Paul Avendano/Alvin/Guillermo/R eindl 12/07/2020 03:15:00 PM EDT MEDENT ([facility] [place] [address] [place] [address] 11/21/2020 12:00:00 AM EDT eCW1 ([facility]) Unknown [address] [place] [address] 11/20/2020 12:00:00 AM EDT eCW1 ([facility]) Outpatient Attender: John Paul Avendano/Alvin/Guillermo/R eindl 09/01/2020 10:30:00 AM EDT MEDENT ([facility], ) [place] [address] [facility] [place] [address] 08/31/2020 12:00:00 AM EDT eCW1 ([facility]) [place] [address] [facility] [place] [address] 06/26/2020 12:00:00 AM EDT eCW1 ([facility]) Outpatient Attender: John Paul Avendano/Alvin/Guillermo/R eindl 02/24/2020 02:30:00 PM EST MEDENT ([facility], ) [place] [address] [place] [address] 12/27/2019 12:00:00 AM EST eCW1 ([facility]) Outpatient [address] [place] [address] 12/08/2019 12:00:00 AM EDT eCW1 ([facility]) Immunizations Vaccine Date Status Description Data Source(s) Moderna #2 dose COVID-19 (given elsewhere) SARSCOV2 VA C 100MCG/0.5ML IM 05/08/2020 07:48:00 AM EDT completed eCW1 ([facility]) Moderna #2 dose COVID-19(given elsewhere) SARSCOV2 VAC 100MCG/0.5ML IM 05/08/2020 07:48:00 AM EDT completed eCW1 ([facility]) Moderna #2 dose COVID-19(given elsewhere) SARSCOV2 VAC 100MCG/0.5ML IM 05/08/2020 07:48:00 AM EDT completed eCW1 ([facility]) COVID-19 VACCINE Moderna 05/08/2020 12:00:00 AM EDT completed [facility] Vaccine Series Complete: YESThis Data wa s Submitted to [facility] Via [facility]. Moderna #1 dose COVID-19 (given elsewhere) SARSCOV2 VA C 100MCG/0.5ML IM 04/13/2020 07:47:00 AM EST completed eCW1 ([facility]) Moderna #1 dose COVID-19(given elsewhere) SARSCOV2 VAC 100MCG/0.5ML IM 04/13/2020 07:47:00 AM EST completed eCW1 ([facility]) Moderna #1 dose COVID-19(given elsewhere) SARSCOV2 VAC 100MCG/0.5ML IM 04/13/2020 07:47:00 AM EST completed eCW1 ([facility]) influenza, recombinant, quadrIvalent,injectable, prese rvative free 12/08/2019 03:45:00 PM EDT completed eCW1 ([facility]) influenza, recombinant, quadrIvalent,injectable, prese rvative free 12/08/2019 03:45:00 PM EDT completed eCW1 ([facility]) influenza, recombinant, quadrIvalent,injectable, prese rvative free 12/08/2019 03:45:00 PM EDT completed eCW1 ([facility]) influenza, recombinant, quadrIvalent,injectable, prese rvative free 12/08/2019 03:45:00 PM EDT completed eCW1 ([facility]) influenza, recombinant, quadrIvalent,injectable, prese rvative free 12/08/2019 03:45:00 PM EDT completed eCW1 ([facility]) influenza, recombinant, quadrIvalent,injectable, prese rvative free 12/08/2019 03:45:00 PM EDT completed eCW1 ([facility]) Medications Medication Brand Name Start Date Product Form Dose Route Admi nistrative Instructions Pharmacy Instructions Status Indications Reaction Description Data Source(s) benzonatate 100 MG Oral Capsule [Tessalon Perles] Chrissy marilyn Perles 100 MG Tessalon Perles 100 MG 11/21/2020 12:00:00 AM EDT 1.0 {capsule_as_nee ded} active Tessalon Perles 100 MG eCW1 ([facility]) Doxycycline Monohydrate 100 MG Oral Capsule Doxycycline [place] hydrate 100 MG 11/21/2020 12:00:00 AM EDT 1.0 {capsule} active Doxycycline Monohydrate 100 MG eCW1 ([facility]) benzonatate 100 MG Oral Capsule [Tessalon Perles] Chrissy marilyn Perles 100 MG Tessalon Perles 100 MG 11/21/2020 12:00:00 AM EDT 1.0 {capsule_as_nee ded} active Tessalon Perles 100 MG eCW1 ([facility]) Doxycycline Monohydrate 100 MG Oral Capsule Doxycycline [place] hydrate 100 MG 11/21/2020 12:00:00 AM EDT 1.0 {capsule} active Doxycycline Monohydrate 100 MG eCW1 ([facility]) Insurance Providers Payer name Policy type / Coverage type Policy ID Covered democrat ID Covered democrat's relationship to sotomayor Policy Sotomayor Plan Information [facility] [id number] S [id number] MEDICARE BLUE PPO 306 [id number] SP [id number] MEDICARE BLUE PPO 306 [id number] SP [id number] Medicare Blue Ppo Commercial [id number] Self [id number] [facility]-Medicare Part B [id number] ANSI-Medicare Part B [id number] ANSI-Medicare Part B [id number] ANSI-Medicare Part B [id number] ANSI-Medicare Part B [id number] ANSI-Medicare Part B [id number] ANSI-Medicare Part B [id number] ANSI-Medicare Part B [id number] ANSI-Medicare Part B [id number] [facility] B [id number] S [id number] ANSI-Medicare Part B [id number] [facility]-Medicare Part B [id number] ANS-Medicare Part B [id number] [facility] [id number] S [id number] MEDICARE [place] [id number] S [id number] [employer] [facility] [id number] S [id number] BS Medicare Ppo Commercial [id number] Self [employer] P [id number] S [id number] MEDICARE BLUE PPO 306 [id number] SP [id number] MEDICARE BLUE PPO 306 [id number] SP [id number] [employer] [facility] [id number] S [id number] Problems, Conditions, and Diagnoses Code Display Name Description Problem Type Effective Dates Data Source(s) H93.12 [id number] Tinnitus, left Problem 08/31/2020 12:00:0 0 AM EDT eCW1 ([facility]) Z85.828 [id number] Hx of basal cell carcinoma Problem 0 12:00:00 AM EST eCW1 ([facility]) Surgeries/Procedures Procedure Description Date Indications Data Source(s) Spirometry 12/07/2020 12:00:00 AM EDT M EDENT ([facility], ) Plethysmography Determination Lung Volumes & Per Airway Resi st 12/07/2020 12:00:00 AM EDT MEDENT ([facility], ) DIFFUSING CAPACITY 12/07/2020 12:00:00 AM EDT MEDENT ([facility], ) OFFICE OUTPATIENT VISIT 25 MINUTES 12/07/2020 12:00:00 AM EDT MEDENT ([facility], ) Spirometry 09/01/2020 12:00:00 AM EDT M EDENT ([facility], ) Plethysmography Determination Lung Volumes & Per Airway Resi st 09/01/2020 12:00:00 AM EDT MEDENT ([facility], ) DIFFUSING CAPACITY 09/01/2020 12:00:00 AM EDT MEDENT ([facility], ) OFFICE OUTPATIENT VISIT 25 MINUTES 09/01/2020 12:00:00 AM EDT MEDENT ([facility], ) Immunization: Flublok Quadrivalent (18 years & older) 0.5mL IM (Influenza) 12/08/2019 12:00:00 AM EDT eCW1 ([facility]) Results ID Date Data Source MYRIAM CHEST 2 VIEW 11/21/2020 12:00:00 AM EDT eCW1 ([facility]) Name Value Range Interpretation Code Description Data Rebekah rce(s) Supporting Document(s) Laboratory studies (set) MYRIAM CHEST 2 VIEW eCW1 ([facility]) ID Date Data Source TSH 08/31/2020 12:00:00 AM EDT eCW1 ([facility]) Name Value Range Interpretation Code Description Data Rebekah rce(s) Supporting Document(s) 2.450 0.358-3.740 THYROID STIMULATING HORM ONE eCW1 ([facility]) ID Date Data Source MAGNESIUM LEVEL 08/31/2020 12:00:00 AM EDT eCW1 ([facility]) Name Value Range Interpretation Code Description Data Rebekah rce(s) Supporting Document(s) 2.5 1.8-2.4 MAGNESIUM LEVEL eCW1 ([facility]) ID Date Data Source Basic Metabolic Profile (BMP) 08/31/2020 12:00:00 AM EDT eCW 1 ([facility]) Name Value Range Interpretation Code Description Data Rebekah rce(s) Supporting Document(s) 83 70-100 GLUCOSE, FASTING eCW1 ([facility]) 15 7-18 BLOOD UREA NITROGEN eCW1 ([facility]) 4.6 3.5-5.1 POTASSIUM SERUM eCW1 ([facility]) > 60.0 >39 GLOMERULAR FILTRATION RATE eCW 1 ([facility]) 0.74 0.55-1.30 CREATININE FOR GFR eCW1 ([facility]) 142 136-145 SODIUM LEVEL eCW1 ([facility]) 109 98-107 CHLORIDE LEVEL eCW1 ([facility]) 8.9 8.8-10.2 CALCIUM LEVEL eCW1 ([facility]) 29 21-32 CARBON DIOXIDE LEVEL eCW1 ([facility]) ID Date Data Source FREE T4 08/31/2020 12:00:00 AM EDT eCW1 ([facility]) Name Value Range Interpretation Code Description Data Rebekah rce(s) Supporting Document(s) 0.89 0.76-1.46 FREE T4 eCW1 ([facility]) ID Date Data Source CBC with Differential 08/31/2020 12:00:00 AM EDT eCW1 ([facility]) Name Value Range Interpretation Code Description Data Rebekah rce(s) Supporting Document(s) 13.5 12.0-15.5 HEMOGLOBIN eCW1 ([facility]) 6.9 4.0-10.0 WHITE BLOOD COUNT eCW1 ([facility]) 4.87 4.00-5.40 RED BLOOD COUNT eCW1 ([facility]) 27.7 27.0-33.0 MEAN CORPUSCULAR HEMOGLOB IN eCW1 ([facility]) 43.4 36.0-47.0 HEMATOCRIT eCW1 ([facility]) 89.1 80.0-96.0 MEAN CORPUSCULAR VOLUME e CW1 ([facility]) 56.8 36.0-66.0 NEUTROPHILS % eCW1 ([facility]) 31.1 32.0-36.5 MEAN CORPUSCULAR HGB CONC eCW1 ([facility]) 251 150-450 PLATELET COUNT, AUTOMATED eCW1 ([facility]) 13.2 11.5-14.5 RED CELL DISTRIBUTION WID TH eCW1 ([facility]) 8.0 2.0-8.0 MONO % eCW1 ([facility]) 2.0 0.0-3.0 EOS % eCW1 ([facility]) 32.1 24.0-44.0 LYMPH % eCW1 ([facility]) 1.0 0.0-1.0 BASO % eCW1 ([facility]) 2.2 1.5-5.0 LYMPH # eCW1 ([facility]) 3.9 1.5-8.5 NEUTROPHILS # eCW1 ([facility]) 0.6 0.0-0.8 MONO # eCW1 ([facility]) 0.1 0.0-0.2 BASO # eCW1 ([facility]) 0.1 0.0-0.5 EOS # eCW1 ([facility]) Procedure Social History Code Duration Value Status Description Data Source(s ) Smoking 12/07/2020 12:00:00 AM EDT - 02/17/2001 12:00:00 AM EST Patient is a former smoker completed Patient is a former smoker HALEY ([facility], ) Smoking 11/21/2020 12:00:00 AM EDT Former Smoker completed Former Smoker eCW1 ([facility]) Smoking 11/21/2020 12:00:00 AM EDT Former Smoker completed Former Smoker eCW1 ([facility]) Smoking 08/31/2020 12:00:00 AM EDT Former Smoker completed Former Smoker eCW1 ([facility]) Smoking 06/26/2020 12:00:00 AM EDT Former Smoker completed Former Smoker eCW1 ([facility]) Smoking 12/27/2019 12:00:00 AM EST Former Smoker completed Former Smoker eCW1 ([facility]) Vital Signs ID Date Data Source UNK Name Value Range Interpretation Code Description Data Source(s) Body weight 61.236 kg 61.236 kg HALEY ([facility], ) Body surface area Derived from formula 1.64 m2 1.64 m2 [facility] Systolic blood pressure 120 mm[Hg] 120 mm[Hg] M [facility] ([facility]) Diastolic blood pressure 80 mm[Hg] 80 mm[Hg] [facility] ([facility]) Body mass index (BMI) [Ratio] 23.9 kg/m2 23.9 k g/m2 [facility] ([facility]) Heart rate 77 /min 77 /min [facility] ([facility]) Oxygen saturation in Arterial blood by Pulse oximetry 98 % 98 % [facility] ([facility]) Body height 63 [in_i] 63 [in_i] [facility] ([facility]) 5'3" Body weight 135.00 [lb_av] 135.00 [lb_av] [facility] [place] body weight 115 [lb_av] 115 [lb_av] MEDEN T ([facility]) Body weight 133 [lb_av] 133 [lb_av] eCW1 ([facility]) Body height 63 [in_i] 63 [in_i] eCW1 ([facility]) Body mass index (BMI) [Ratio] 23.56 kg/m2 23.56 kg/m2 W1 ([facility]) Heart rate 76 /min 76 /min eCW1 ([facility]) Respiratory rate 18 /min 18 /min eCW1 ([facility]) Body temperature 98.2 [degF] 98.2 [degF] eCW1 ( [facility]) Systolic blood pressure 132 mm[Hg] 132 mm[Hg] e CW1 ([facility]) Diastolic blood pressure 85 mm[Hg] 85 mm[Hg] eCW1 ([facility]) Oxygen saturation in Arterial blood by Pulse oximetry 98 % 98 % [facility] ([facility]) Body temperature 97.2 [degF] 97.2 [degF] [facility] ([facility]) Systolic blood pressure 128 mm[Hg] 128 mm[Hg] M EDENT ([facility]) Diastolic blood pressure 82 mm[Hg] 82 mm[Hg] MEDENT ([facility]) Heart rate 61 /min 61 /min MEDENT ([facility]) Body height 63 [in_i] 63 [in_i] [facility]) 5'3" Body weight 136.00 [lb_av] 136.00 [lb_av] MEDEN T ([facility]) Body mass index (BMI) [Ratio] 24.1 kg/m2 24.1 k g/m2 [facility]) [place] body weight 115 [lb_av] 115 [lb_av] MEDEN T ([facility]) Body weight 61.690 kg 61.690 kg [facility] ([facility]) Body surface area Derived from formula 1.64 m2 1.64 m2 [facility] ([facility]) Body weight 137 [lb_av] 137 [lb_av] eCW1 ([facility]) Body height 63 [in_i] 63 [in_i] eCW1 ([facility]) Body mass index (BMI) [Ratio] 24.27 kg/m2 24.27 kg/m2 eCW1 ([facility]) Heart rate 61 /min 61 /min eCW1 ([facility]) Respiratory rate 18 /min 18 /min eCW1 ([facility]) Body temperature 97.1 [degF] 97.1 [degF] eCW1 ( [facility]) Systolic blood pressure 135 mm[Hg] 135 mm[Hg] e CW1 ([facility]) Diastolic blood pressure 69 mm[Hg] 69 mm[Hg] eCW1 ([facility]) Body weight 144 [lb_av] 144 [lb_av] eCW1 ([facility]) Body height 63 [in_i] 63 [in_i] eCW1 ([facility]) Body mass index (BMI) [Ratio] 25.51 kg/m2 25.51 kg/m2 eCW1 ([facility]) Systolic blood pressure 136 mm[Hg] 136 mm[Hg] e CW1 ([facility]) Diastolic blood pressure 74 mm[Hg] 74 mm[Hg] eCW1 ([facility]) Oxygen saturation in Arterial blood by Pulse oximetry 98 % 98 % [facility] ([facility], ) Room Air Body height 63 [in_i] 63 [in_i] [facility] ([facility], ) 5'3" [place] body weight 115 [lb_av] 115 [lb_av] MEDEN T ([facility]) Body height 63 [in_i] 63 [in_i] MEDENT ([facility]) 5'3" [place] body weight 115 [lb_av] 115 [lb_av] MEDEN T ([facility], ) Systolic blood pressure 120 mm[Hg] 120 mm[Hg] M EDENT ([facility], ) Diastolic blood pressure 70 mm[Hg] 70 mm[Hg] [facility]) Heart rate 70 /min 70 /min [facility] ([facility]) Oxygen saturation in Arterial blood by Pulse oximetry 98 % 98 % [facility] ([facility], ) Room Air Body weight 139.2 [lb_av] 139.2 [lb_av] eCW1 ([facility]) Body height 63 [in_i] 63 [in_i] eCW1 ([facility]) Body mass index (BMI) [Ratio] 24.66 kg/m2 24.66 kg/m2 eCW1 ([facility]) Systolic blood pressure 138 mm[Hg] 138 mm[Hg] e CW1 ([facility]) Diastolic blood pressure 78 mm[Hg] 78 mm[Hg] eCW1 ([facility]) Patient Treatment Plan of Care Planned Activity Planned Date Details Description Data Source (s) Doxycycline Monohydrate 100 MG Oral Capsule 11/21/2020 12:00:00 AM EDT eC1 ([facility]) benzonatate 100 MG Oral Capsule [Tessalon Perles] 11/21/2020 12: 00:00 AM EDT eC ([facility]) Doxycycline Monohydrate 100 MG Oral Capsule 11/21/2020 12:00:00 AM EDT eCW1 ([facility]) benzonatate 100 MG Oral Capsule [Johnny Mcdonough] 11/21/2020 12: 00:00 AM EDT eCW1 ([facility])
--- OUTSIDE RECORDS SUMMARY | 2020-12-13 13:44 | CCD | Continuity of Care Document ---
Author Author Pulmonary Lab, [facility] Organization Unknown Address [address] [place] [address] Phone [phone] Care Team Providers Care Solder Technician Name Role Phone Celestina Fox D.O. AUTM [phone] Problems Description No Information Available Social History [...] lb BMI (Body Mass Index) 23.9 kg/m2 [place] Body Weight 115 lb Weight 61.236 kg BSA (Body Surface Area) 1.64 m2 09/01/2020 9:08am BP Systolic 128 mmHg BP Diastolic 82 mmHg Heart Rate 61 /min O2 % BldC Oximetry 98 % Body Temperature 97.2 F Height 63 inches 5'3" Weight 136.00 lb BMI (Body Mass Index) 24.1 kg/m2 [place] Body Weight 115 lb Weight 61.690 kg BSA (Body Surface Area) 1.64 m2 Results Description No Information Available Procedures Date Code Description Status 09/01/2020 65792 Office/Outpatient Established Mo d MDM 30-39 Min Completed 09/01/2020 30191 Diffusing Capacity Completed 09/01/2020 84789 Plethysmography Determination Michelle ng Volumes & Per Airway Resist Completed 09/01/2020 21098 Spirometry Completed Medical Devices Description No Information Available Encounters Type Date Location Provider Dx Diagnosis Office Visit 09/01/2020 10:30a [facility] Pulmonary/Thoracic Nevaeh Watson MD J84.112 Idiopathic [...] am - John Paul Watson MD at [facility] Pulmonary/Thoracic * 09/06/2021 10:00 am - Pulmonary Lab at [facility] PulmonaryThoracic 12/07/2020 - John Paul Watson [...] Reason for Referral Status Appt Date Radiology/Procedure 57296 Closed 08/22/2020
--- OUTSIDE RECORDS SUMMARY | 2020-12-13 13:44 | CCD ---
Author Author [facility] Organization [facility] Address Unknown Phone Unavailable Care Team Providers Care Foundation Maker Name Role Phone Celestina Fox Unavailable PROBLEMS Type Condition ICD9-CM Code [id number] Code Onset Dates Condition S tatus W/U Status Risk SNOMED Code Notes Problem Tremor R25.1 Active confirmed 81703040 Problem Hearing loss, unspecified hearing loss type, uns pecified laterality H91.90 Active confirmed 14482661 Problem Worsening vision H54.7 Active confirmed 225 678163 Problem Basal cell carcinoma, forehead C44.319 Active confi rmed 847805522 Problem Hx of basal cell carcinoma Z85.828 Active confirmed 140830674 Problem Age-related osteoporosis without current pathological fracture M81.0 Active confirmed 22706882 Problem Pulmonary fibrosis J84.10 Active confirmed 5 1840944 Problem Vitamin D deficiency E55.9 Active confirmed 59663574 Problem Tinnitus, left H93.12 Active confirmed 68558 13531504 ALLERGIES Allergen (clinical drug ingredient) Drug/Non Drug Allergy do cumented on EMR Reaction Allergy Type Onset Date Status codeine Codeine Sulfate(NDC Code:[address]-75) N/V Drug Al lergy Active Cortisone Skin came off foot,rash Drug Allergy Active cefdinir Cefdinir(NDC Code:[address]-19) Lack of effect for UTI Dr corbett Allergy Active ENCOUNTERS from 1945 to 2020-11-21 Encounter Location Date Provider Diagnosis [facility] [phone] [place] [address] Nov, Celestina Fox IMMUNIZATIONS Vaccine Route Administration Date Status Moderna #2 dose COVID-19(given elsewhere) SARSCOV2 VAC 100MCG/0.5ML IM IM Intramuscular May 08, 2020 [...] Nov 15, 2013 Administered Moderna #1 dose COVID-19(given elsewhere) SARSCOV2 VAC 100MCG/0.5ML IM IM Intramuscular Apr 13, 2020 [...] Education Language: Question Answer Notes Languages spoken: Arabic Pentecostalism: Question Answer Notes Pentecostalism No christianity beliefs that would impact health care. Sexual [...] REASON FOR REFERRAL No Information VITAL SIGNS No information MEDICATIONS Medication SIG (Take, Route, Frequency, Duration) [...] day(s) Nov, Active PROCEDURES No Information RESULTS No Results REASON FOR VISIT cough/congestion MEDICAL (GENERAL) HISTORY Type Description Date Medical History Hyperlipidemia Medical History Hypertension Medical History Kidney stone Medical History Knee fracture: 04/2009: slip on ice Surgical History Cataracts, bilaterally 2001,2006 Surgical History Tonsillectomy As child Surgical History Tubal ligation 1970 Surgical History Teeth extraction 2008 Surgical History Colonoscopy 06/28/2015 Surgical History Lung biopsy- Dr. Watson 04/2018 Hospitalization History [facility]-kidney stone 09/04/16 Goals Section No Information Health Concerns No Information MEDICAL EQUIPMENT No Information MENTAL STATUS No Information FUNCTIONAL STATUS No Information ASSESSMENTS No Information PLAN OF TREATMENT Medication Medication Name Sig Start Date Stop Date Doxycycline Monohydrate 100 MG 1 capsule Orally every 12 hrs for 10 day(s) Nov, Tessalon Perles 100 MG 1 capsule as needed Orally T hree times a day for 10 day(s) Nov, Next Appt Details Provider Name:Stacy Prince, 2020-12-27 08:15:00 AM, [address] [facility], [place], [address], Provider Name:Celestina Fox, 2021-08 08:30:00 AM, [address] [place] [address], [place], [address], Insurance Providers Payer Name Payer Address Payer Phone Insured Name Patient Relati onship to Insured Coverage Start Date Coverage End Date MEDICARE BLUE PPO [address] [facility] [place] [address] MARIANA MEHTA self
[2020-12-13] MEDS ORDERED: ADENOSINE 6MG/2ML INJECTION (J0153) IV STA (13:47)
[2020-12-13] MEDS ORDERED: ADENOSINE 6MG/2ML INJECTION (J0153) As Ordered ONE (13:47)
[2020-12-13 14:20] LABS: BASO # 0.1 10^3/uL (0.0-0.2); BASO % 0.7 % (0.0-1.0); EOS # 0.2 10^3/uL (0.0-0.5); EOS % 1.7 % (0.0-3.0); HEMATOCRIT 44.7 % (36.0-47.0); HEMOGLOBIN 14.2 g/dl (12.0-15.5); LYMPH # 4.4 10^3/uL (1.5-5.0); LYMPH % 37.3 % (24.0-44.0); MEAN CORPUSCULAR HEMOGLOBIN 28.1 pg (27.0-33.0); MEAN CORPUSCULAR HGB CONC 31.8 g/dl (32.0-36.5); MEAN CORPUSCULAR VOLUME 88.3 fl (80.0-96.0); MONO # 0.6 10^3/uL (0.0-0.8); NEUTROPHILS # 6.5 10^3/uL (1.5-8.5); NEUTROPHILS % 54.9 % (36.0-66.0); PLATELET COUNT, AUTOMATED 245 10^3/uL (150-450); RED BLOOD COUNT 5.06 10^6/uL (4.00-5.40); WHITE BLOOD COUNT 11.9 10^3/uL (4.0-10.0)
[2020-12-13 14:52] LABS: FREE THYROXINE INDEX 1.9 % (1.3-4.8); MAGNESIUM LEVEL 2.2 MG/DL (1.8-2.4); THYROID STIMULATING HORMONE 2.39 uIU/ML (0.358-3.740); THYROXINE (T4) 7.9 UG/DL (4.5-12.0)
--- OUTSIDE RECORDS SUMMARY | 2020-12-13 15:00 | CCD ---
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 Pre Sales Technical Engineer Name Role Phone Heath Watson MD Unavailable [...] Unavailable Unavailable Heath Watson MD Unavailable Unavailable Heaht Watson MD Unavailable Unavailable Heath Watson MD [...] is protected by Article 27-F of the [facility] Public Health law. If you continue you may have access to information: Regarding HIV / AIDS; Provided by facilities licensed or operated by the [facility] Office of Mental Health; or Provided by the [facility] Office for People With Developmental Disabilities. If such information is present, then the following [facility] mandated warning applies: This information has [...] law may result in a fine or care home sentence or both. A general authorization for the release of medical or other information is NOT sufficient authorization for further disc losure. Family History Family Member Name Family Member Gender Family Member Status Date o f Status Description Data Source(s) Unknown Unknown Problem MEDENT ([facility], ) Unknown Female Problem MEDENT ([facility]) Unknown Female Problem MEDENT ([facility]) Unknown Female Problem MEDENT ([facility]) Unknown Female Problem MEDENT ([facility]) Encounters Encounter Providers Location Date Indications Data Source(s ) Outpatient Attender: John Paul Avendano/Alvin/Guillermo/R eindl 12/07/2020 03:15:00 PM EDT MEDENT ([facility] [address] [facility] [place] [address] 11/21/2020 12:00:00 AM EDT eCW1 ([facility]) Unknown [address] [facility] [place] [address] 11/20/2020 12:00:00 AM EDT eCW1 ([facility]) Outpatient Attender: John Paul Avendano/Alvin/Guillermo/R eindl 09/01/2020 10:30:00 AM EDT MEDENT ([facility], ) [place]patient [address] [facility] [address] [place] [address] 08/31/2020 12:00:00 AM EDT eCW1 ([facility]) [place]patient [address] [facility] [address] [place] [address] 06/26/2020 12:00:00 AM EDT eCW1 ([facility]) Outpatient Attender: John Paul Avendano/Alvin/Guillermo/R eindl 02/24/2020 02:30:00 PM EST MEDENT ([facility], ) Outpatient [address] [facility] [address] 12/27/2019 12:00:00 AM EST eCW1 ([facility]) Outpatient [address] [facility] [place] [address] 12/08/2019 12:00:00 AM EDT eCW1 ([facility]) Immunizations Vaccine Date Status Description Data Source(s) Moderna #2 dose COVID-19 (given elsewhere) SARSCOV2 VA C 100MCG/0.5ML IM 05/08/2020 07:48:00 AM EDT completed eCW1 ([facility]) Moderna #2 dose COVID-19(given elsewhere) SARSCOV2 VAC 100MCG/0.5ML IM 05/08/2020 07:48:00 AM EDT completed eCW1 ([facility]) Moderna #2 dose COVID-19(given elsewhere) SARSCOV2 VAC 100MCG/0.5ML IM 05/08/2020 07:48:00 AM EDT completed eCW1 ([facility]) COVID-19 VACCINE Moderna 05/08/2020 12:00:00 AM EDT completed [facility] Vaccine Series Complete: YESThis Data wa s Submitted to [facility] Via [facility]. Moderna #1 dose COVID-19 (given elsewhere) SARSCOV2 VA C 100MCG/0.5ML IM 04/13/2020 07:47:00 AM EST completed eCW1 ([facility]) Moderna #1 dose COVID-19(given elsewhere) SARSCOV2 VAC 100MCG/0.5ML IM 04/13/2020 07:47:00 AM EST completed eCW1 ([facility]) Moderna #1 dose COVID-19(given elsewhere) SARSCOV2 VAC 100MCG/0.5ML IM 04/13/2020 07:47:00 AM EST completed eCW1 ([facility]) influenza, recombinant, quadrIvalent,injectable, prese rvative free 12/08/2019 03:45:00 PM EDT completed eCW1 ([facility]) influenza, recombinant, quadrIvalent,injectable, prese rvative free 12/08/2019 03:45:00 PM EDT completed eCW1 ([facility]) influenza, recombinant, quadrIvalent,injectable, prese rvative free 12/08/2019 03:45:00 PM EDT completed eCW1 ([facility]) influenza, recombinant, quadrIvalent,injectable, prese rvative free 12/08/2019 03:45:00 PM EDT completed eCW1 ([facility]) influenza, recombinant, quadrIvalent,injectable, prese rvative free 12/08/2019 03:45:00 PM EDT completed eCW1 ([facility]) influenza, recombinant, quadrIvalent,injectable, prese rvative free 12/08/2019 03:45:00 PM EDT completed eCW1 ([facility]) Medications Medication Brand Name Start Date Product Form Dose Route Admi nistrative Instructions Pharmacy Instructions Status Indications Reaction Description Data Source(s) benzonatate 100 MG Oral Capsule [Tessalon Perles] Chrissy marilyn Perles 100 MG Tessalon Perles 100 MG 11/21/2020 12:00:00 AM EDT 1.0 {capsule_as_nee ded} active Tessalon Perles 100 MG eCW1 ([facility]) Doxycycline Monohydrate 100 MG Oral Capsule Doxycycline Lander hydrate 100 MG 11/21/2020 12:00:00 AM EDT 1.0 {capsule} active Doxycycline Monohydrate 100 MG eCW1 ([facility]) benzonatate 100 MG Oral Capsule [Tessalon Perles] Chrissy marilyn Perles 100 MG Tessalon Perles 100 MG 11/21/2020 12:00:00 AM EDT 1.0 {capsule_as_nee ded} active Tessalon Perles 100 MG eCW1 ([facility]) Doxycycline Monohydrate 100 MG Oral Capsule Doxycycline Lander hydrate 100 MG 11/21/2020 12:00:00 AM EDT 1.0 {capsule} active Doxycycline Monohydrate 100 MG eCW1 ([facility]) Insurance Providers Payer name Policy type / Coverage type Policy ID Covered alliance party ID Covered alliance party's relationship to sotomayor Policy Sotomayor [id number] [id number] MEDICARE BLUE PPO 306 [id number] SP [id number] MEDICARE BLUE PPO 306 [id number] SP [id number] Medicare Blue Ppo Commercial [id number] Self [id number] [facility]-Medicare Part B [id number] ANSI-Medicare Part B [id number] ANSI-Medicare Part B [id number] ANSI-Medicare Part B [id number] ANSI-Medicare Part B [id number] ANSI-Medicare Part B [id number] ANSI-Medicare Part B [id number] ANSI-Medicare Part B [id number] ANSI-Medicare Part B [id number] [facility] B [id number] S [id number] ANSI-Medicare Part B [id number] [facility]-Medicare Part B [id number] ANS-Medicare Part B [id number] [facility] [id number] S [id number] MEDICARE [place] [id number] S [id number] [facility] BCBS [facility] [id number] S [id number] BS Medicare Ppo Commercial [id number] Self [employer] BCBS P [id number] S [id number] MEDICARE BLUE PPO 306 [id number] SP [id number] MEDICARE BLUE PPO 306 [id number] SP [id number] [facility] BCBS [facility] [id number] S [id number] Problems, Conditions, and Diagnoses Code Display Name Description Problem Type Effective Dates Data Source(s) H93.12 [id number] Tinnitus, left Problem 08/31/2020 12:00:0 0 AM EDT eCW1 ([facility]) Z85.828 [id number] Hx of basal cell carcinoma Problem 0 12:00:00 AM EST eCW1 ([facility]) Surgeries/Procedures Procedure Description Date Indications Data Source(s) Spirometry 12/07/2020 12:00:00 AM EDT M EDENT ([facility], ) Plethysmography Determination Lung Volumes & Per Airway Resi st 12/07/2020 12:00:00 AM EDT MEDENT ([facility], ) DIFFUSING CAPACITY 12/07/2020 12:00:00 AM EDT MEDENT ([facility], ) OFFICE OUTPATIENT VISIT 25 MINUTES 12/07/2020 12:00:00 AM EDT MEDENT ([facility], ) Spirometry 09/01/2020 12:00:00 AM EDT M EDENT ([facility], ) Plethysmography Determination Lung Volumes & Per Airway Resi st 09/01/2020 12:00:00 AM EDT MEDENT ([facility], ) DIFFUSING CAPACITY 09/01/2020 12:00:00 AM EDT MEDENT ([facility], ) OFFICE OUTPATIENT VISIT 25 MINUTES 09/01/2020 12:00:00 AM EDT MEDENT ([facility], ) Immunization: Flublok Quadrivalent (18 years & older) 0.5mL IM (Influenza) 12/08/2019 12:00:00 AM EDT eCW1 ([facility]) Results ID Date Data Source MYRIAM CHEST 2 VIEW 11/21/2020 12:00:00 AM EDT eCW1 ([facility]) Name Value Range Interpretation Code Description Data Rebekah rce(s) Supporting Document(s) Laboratory studies (set) MYRIAM CHEST 2 VIEW eCW1 ([facility]) ID Date Data Source TSH 08/31/2020 12:00:00 AM EDT eCW1 ([facility]) Name Value Range Interpretation Code Description Data Rebekah rce(s) Supporting Document(s) 2.450 0.358-3.740 THYROID STIMULATING HORM ONE eCW1 ([facility]) ID Date Data Source MAGNESIUM LEVEL 08/31/2020 12:00:00 AM EDT eCW1 ([facility]) Name Value Range Interpretation Code Description Data Rebekah rce(s) Supporting Document(s) 2.5 1.8-2.4 MAGNESIUM LEVEL eCW1 ([facility]) ID Date Data Source Basic Metabolic Profile (BMP) 08/31/2020 12:00:00 AM EDT eCW 1 ([facility]) Name Value Range Interpretation Code Description Data Rebekah rce(s) Supporting Document(s) 83 70-100 GLUCOSE, FASTING eCW1 ([facility]) 15 7-18 BLOOD UREA NITROGEN eCW1 ([facility]) 4.6 3.5-5.1 POTASSIUM SERUM eCW1 ([facility]) > 60.0 >39 GLOMERULAR FILTRATION RATE eCW 1 ([facility]) 0.74 0.55-1.30 CREATININE FOR GFR eCW1 ([facility]) 142 136-145 SODIUM LEVEL eCW1 ([facility]) 109 98-107 CHLORIDE LEVEL eCW1 ([facility]) 8.9 8.8-10.2 CALCIUM LEVEL eCW1 ([facility]) 29 21-32 CARBON DIOXIDE LEVEL eCW1 ([facility]) ID Date Data Source FREE T4 08/31/2020 12:00:00 AM EDT eCW1 ([facility]) Name Value Range Interpretation Code Description Data Rebekah rce(s) Supporting Document(s) 0.89 0.76-1.46 FREE T4 eCW1 ([facility]) ID Date Data Source CBC with Differential 08/31/2020 12:00:00 AM EDT eCW1 ([facility]) Name Value Range Interpretation Code Description Data Rebekah rce(s) Supporting Document(s) 13.5 12.0-15.5 HEMOGLOBIN eCW1 ([facility]) 6.9 4.0-10.0 WHITE BLOOD COUNT eCW1 ([facility]) 4.87 4.00-5.40 RED BLOOD COUNT eCW1 ([facility]) 27.7 27.0-33.0 MEAN CORPUSCULAR HEMOGLOB IN eCW1 ([facility]) 43.4 36.0-47.0 HEMATOCRIT eCW1 ([facility]) 89.1 80.0-96.0 MEAN CORPUSCULAR VOLUME e CW1 ([facility]) 56.8 36.0-66.0 NEUTROPHILS % eCW1 ([facility]) 31.1 32.0-36.5 MEAN CORPUSCULAR HGB CONC eCW1 ([facility]) 251 150-450 PLATELET COUNT, AUTOMATED eCW1 ([facility]) 13.2 11.5-14.5 RED CELL DISTRIBUTION WID TH eCW1 ([facility]) 8.0 2.0-8.0 MONO % eCW1 ([facility]) 2.0 0.0-3.0 EOS % eCW1 ([facility]) 32.1 24.0-44.0 LYMPH % eCW1 ([facility]) 1.0 0.0-1.0 BASO % eCW1 ([facility]) 2.2 1.5-5.0 LYMPH # eCW1 ([facility]) 3.9 1.5-8.5 NEUTROPHILS # eCW1 ([facility]) 0.6 0.0-0.8 MONO # eCW1 ([facility]) 0.1 0.0-0.2 BASO # eCW1 ([facility]) 0.1 0.0-0.5 EOS # eCW1 ([facility]) Procedure Social History Code Duration Value Status Description Data Source(s ) Smoking 12/07/2020 12:00:00 AM EDT - 02/17/2001 12:00:00 AM EST Patient is a former smoker completed Patient is a former smoker HALEY ([facility], ) Smoking 11/21/2020 12:00:00 AM EDT Former Smoker completed Former Smoker eCW1 ([facility]) Smoking 11/21/2020 12:00:00 AM EDT Former Smoker completed Former Smoker eCW1 ([facility]) Smoking 08/31/2020 12:00:00 AM EDT Former Smoker completed Former Smoker eCW1 ([facility]) Smoking 06/26/2020 12:00:00 AM EDT Former Smoker completed Former Smoker eCW1 ([facility]) Smoking 12/27/2019 12:00:00 AM EST Former Smoker completed Former Smoker eCW1 ([facility]) Vital Signs ID Date Data Source UNK Name Value Range Interpretation Code Description Data Source(s) Body weight 61.236 kg 61.236 kg HALEY ([facility], ) Systolic blood pressure 120 mm[Hg] 120 mm[Hg] M EDENT ([facility]) Diastolic blood pressure 80 mm[Hg] 80 mm[Hg] [facility] Body surface area Derived from formula 1.64 m2 1.64 m2 [facility] ([facility]) Body mass index (BMI) [Ratio] 23.9 kg/m2 23.9 k g/m2 [facility] ([facility]) Heart rate 77 /min 77 /min [facility] ([facility]) Oxygen saturation in Arterial blood by Pulse oximetry 98 % 98 % [facility] ([facility]) Body height 63 [in_i] 63 [in_i] [facility] ([facility]) 5'3" Body weight 135.00 [lb_av] 135.00 [lb_av] MEDEN T ([facility]) [place] body weight 115 [lb_av] 115 [lb_av] MEDEN T ([facility]) Body weight 133 [lb_av] 133 [lb_av] eCW1 ([facility]) Body height 63 [in_i] 63 [in_i] eCW1 ([facility]) Body mass index (BMI) [Ratio] 23.56 kg/m2 23.56 kg/m2 W1 ([facility]) Heart rate 76 /min 76 /min eCW1 ([facility]) Respiratory rate 18 /min 18 /min eCW1 ([facility]) Body temperature 98.2 [degF] 98.2 [degF] eCW1 ( [facility]) Systolic blood pressure 132 mm[Hg] 132 mm[Hg] e CW1 ([facility]) Diastolic blood pressure 85 mm[Hg] 85 mm[Hg] eCW1 ([facility]) Body height 63 [in_i] 63 [in_i] [facility] 5'3" Body weight 136.00 [lb_av] 136.00 [lb_av] MEDEN T ([facility]) Body mass index (BMI) [Ratio] 24.1 kg/m2 24.1 k g/m2 MEDENT ([facility]) [place] body weight 115 [lb_av] 115 [lb_av] MEDEN T ([facility]) Body weight 61.690 kg 61.690 kg [facility] ([facility]) Body surface area Derived from formula 1.64 m2 1.64 m2 [facility]) Systolic blood pressure 128 mm[Hg] 128 mm[Hg] M EDENT ([facility]) Diastolic blood pressure 82 mm[Hg] 82 mm[Hg] [facility]) Oxygen saturation in Arterial blood by Pulse oximetry 98 % 98 % [facility] ([facility]) Heart rate 61 /min 61 /min [facility] ([facility]) Body temperature 97.2 [degF] 97.2 [degF] [facility] ([facility]) Body weight 137 [lb_av] 137 [lb_av] eCW1 ([facility]) Body height 63 [in_i] 63 [in_i] eCW1 ([facility]) Body mass index (BMI) [Ratio] 24.27 kg/m2 24.27 kg/m2 W1 ([facility]) Heart rate 61 /min 61 /min eCW1 ([facility]) Respiratory rate 18 /min 18 /min W1 ([facility]) Body temperature 97.1 [degF] 97.1 [degF] eCW1 ( [facility]) Systolic blood pressure 135 mm[Hg] 135 mm[Hg] e CW1 ([facility]) Diastolic blood pressure 69 mm[Hg] 69 mm[Hg] eCW1 ([facility]) Body weight 144 [lb_av] 144 [lb_av] eCW1 ([facility]) Body height 63 [in_i] 63 [in_i] eCW1 ([facility]) Body mass index (BMI) [Ratio] 25.51 kg/m2 25.51 kg/m2 W1 ([facility]) Systolic blood pressure 136 mm[Hg] 136 mm[Hg] e CW1 ([facility]) Diastolic blood pressure 74 mm[Hg] 74 mm[Hg] eCW1 ([facility]) Oxygen saturation in Arterial blood by Pulse oximetry 98 % 98 % [facility] ([facility], ) Room Air Body height 63 [in_i] 63 [in_i] [facility] ([facility], ) 5'3" [place] body weight 115 [lb_av] 115 [lb_av] MEDEN T ([facility]) Body height 63 [in_i] 63 [in_i] MEDENT ([facility]) 5'3" [place] body weight 115 [lb_av] 115 [lb_av] MEDEN T ([facility], ) Systolic blood pressure 120 mm[Hg] 120 mm[Hg] M EDENT ([facility], ) Diastolic blood pressure 70 mm[Hg] 70 mm[Hg] [facility]) Heart rate 70 /min 70 /min [facility] ([facility]) Oxygen saturation in Arterial blood by Pulse oximetry 98 % 98 % [facility] ([facility], ) Room Air Body weight 139.2 [lb_av] 139.2 [lb_av] eCW1 ([facility]) Body height 63 [in_i] 63 [in_i] eCW1 ([facility]) Body mass index (BMI) [Ratio] 24.66 kg/m2 24.66 kg/m2 eCW1 ([facility]) Systolic blood pressure 138 mm[Hg] 138 mm[Hg] e CW1 ([facility]) Diastolic blood pressure 78 mm[Hg] 78 mm[Hg] eCW1 ([facility]) Patient Treatment Plan of Care Planned Activity Planned Date Details Description Data Source (s) Doxycycline Monohydrate 100 MG Oral Capsule 11/21/2020 12:00:00 AM EDT eC1 ([facility]) benzonatate 100 MG Oral Capsule [Tessalon Perles] 11/21/2020 12: 00:00 AM EDT eC ([facility]) Doxycycline Monohydrate 100 MG Oral Capsule 11/21/2020 12:00:00 AM EDT eCW1 ([facility]) benzonatate 100 MG Oral Capsule [Johnny Mcdonough] 11/21/2020 12: 00:00 AM EDT eCW1 ([facility])
[2020-12-13 15:49] VITALS: BP 113/77
--- NOTE | 2020-12-14 20:07 | ECGEPIP ---
[facility] - ED Test Date: 2020-12-13 Pat Name: MARIANA MEHTA Department: Room: - Gender: Female Insurance Assistant: LUIS : 1945 Requested By: Otilia Kevin Order Number: [id number] Reading MD: Otilia Kevin Measurements Intervals [place] Rate: 202 P: GA: QRS: -1 QRSD: 68 T: 120 QT: 212 QTc: 388 Interpretive Statements Supraventricular tachycardia Marked ST abnormality, possible inferolateral subendocardial injury no prior Electronically Signed on 12-14-2020 20:07:30 EDT by Otilia Kevin
--- NOTE | 2020-12-14 20:08 | ECGEPIP ---
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
== END 2020-12-13 15:52 | disposition home or self-care (01) ==
LOC: M ED 13:35
DX: I47.1 Supraventricular tachycardia (principal); I10 Essential (primary) hypertension; E78.5 Hyperlipidemia, unspecified; Z88.5 Allergy status to narcotic agent; Z88.8 Allergy status to other drugs, medicaments and biological substances; Z87.891 Personal history of nicotine dependence
CPT/HCPCS: 80047; 83735; 84436; 84443; 84479; 84484; 85025; 93005; 96374; 99291; J0153

== ENCOUNTER 2021-01-20 12:28 | Emergency (ER) | payer MEDICARE ==
[~2021-01-20] VITALS: Ht 160 cm; Wt 58.2 kg
--- OUTSIDE RECORDS SUMMARY | 2021-01-20 12:37 | CCD | Continuity of Care Document ---
Author Author Ellie SERNA MD Organization Unknown Address [address] [place] [address] Phone [phone] Care Team Providers Care Apprentice Instrument Technician Name Role Phone Celestina Fox D.O. AUTM [phone] Problems Description No Information Available Social History [...] lb BMI (Body Mass Index) 23.9 kg/m2 Willow Body Weight 115 lb Weight 61.236 kg BSA (Body Surface Area) 1.64 m2 09/01/2020 9:08am BP Systolic 128 mmHg BP Diastolic 82 mmHg Heart Rate 61 /min O2 % BldC Oximetry 98 % Body Temperature 97.2 F Height 63 inches 5'3" Weight 136.00 lb BMI (Body Mass Index) 24.1 kg/m2 Willow Body Weight 115 lb Weight 61.690 kg BSA (Body Surface Area) 1.64 m2 Results Description No Information Available Procedures Date Code Description Status 12/07/2020 74621 Office/Outpatient Established Mo d MDM 30-39 Min Completed 12/07/2020 61524 Diffusing Capacity Completed 12/07/2020 42799 Plethysmography Determination Michelle ng Volumes & Per Airway Resist Completed 12/07/2020 10462 Spirometry Completed 09/01/2020 12082 Office/Outpatient Established Mo d MDM 30-39 Min Completed 09/01/2020 27243 Diffusing Capacity Completed 09/01/2020 25021 Plethysmography Determination Michelle ng Volumes & Per Airway Resist Completed 09/01/2020 68828 Spirometry Completed Medical Devices Description No Information Available Encounters Type Date Location Provider Dx Diagnosis Office Visit 12/07/2020 3:15p [facility] Nevaeh Serna MD J84.112 Idiopathic pulmonary fibrosis R91.1 Solitary pulmonary nodule R91.8 Other nonspecific abnormal f inding of lung field Z87.891 Personal history of nicotine dependence Office Visit 09/01/2020 10:30a [facility] Nevaeh Serna MD J84.112 Idiopathic pulmonary [...] am - John Paul Serna MD at [facility] * 09/06/2021 10:00 am - Pulmonary Lab at [facility] 12/07/2020 - John Paul Serna MD* [...] Reason for Referral Status Appt Date Radiology/Procedure 09189 Closed 08/22/2020
--- OUTSIDE RECORDS SUMMARY | 2021-01-20 12:37 | CCD | Continuity of Care Document ---
Author Author Ellie AYALA [facility] Unknown Address [address] [place] [address] [place] [address] Phone [phone] Problems Description No Information Available Social History Type Date Description Comments Sex Unknown Allergies and adverse reactions Description No Information Available Medications Description No Information Available Immunizations Description No Information Available Vital Signs Description No Information Available Results Description No Information Available Procedures Description No Information Available Medical Devices Description No Information Available Encounters Description No Information Available Assessments Date Code Description Provider 01/17/2021 Z20.828 Contact with and (mccann spected) exposure to other viral communicable diseases YUDY Callejas 12/18/2020 Z20.828 Contact with and (mccann spected) exposure to other viral communicable diseases Malaika NashACharlene Plan of Treatment No Information Available Functional Status Description No Information Available Mental Status Description No Information Available Referrals Description No Information Available
--- OUTSIDE RECORDS SUMMARY | 2021-01-20 12:37 | CCD ---
Author Author [facility] Organization [facility] Address Unknown Phone Unavailable Care Team Providers Care Soup Mixer Name Role Phone Celestina Fox Unavailable PROBLEMS Type Condition ICD9-CM Code [id number] Code Onset Dates Condition S tatus W/U Status Risk SNOMED Code Notes Problem Hearing loss, unspecified hearing loss type, uns pecified laterality H91.90 Active confirmed 58345520 Problem Worsening vision H54.7 Active confirmed 225 309076 Problem Pulmonary fibrosis J84.10 Active confirmed 5 5305291 Problem Hx of basal cell carcinoma Z85.828 Active confirmed 919256200 Problem Tremor R25.1 Active confirmed 18210684 Problem Paroxysmal SVT (supraventricular tachycardia) I47. 1 Active confirmed 40654708 Problem Age-related osteoporosis without current pathological fracture M81.0 Active confirmed 34142124 Problem Vitamin D deficiency E55.9 Active confirmed 95524135 Problem Tinnitus, left H93.12 Active confirmed 70068 34956927 Problem Basal cell carcinoma, forehead C44.319 Active confi rmed [id number] ALLERGIES Allergen (clinical drug ingredient) Drug/Non Drug Allergy do cumented on EMR Reaction Allergy Type Onset Date Status codeine Codeine Sulfate(NDC Code:[address]-08) N/V Drug Al lergy Active Cortisone Skin came off foot,rash Drug Allergy Active cefdinir Cefdinir(NDC Code:[address]-92) Lack of effect for UTI Dr aric Allergy Active ENCOUNTERS from 1945 to 2021-01-16 Encounter Location Date Provider Diagnosis [facility] Lory STRAWBERRY [phone] [place] [address] Dec, Celestina Fox IMMUNIZATIONS Vaccine Route Administration Date [...] Education Language: Question Answer Notes Languages spoken: Slovenian Baptist: Question Answer Notes Baptist No tenriism beliefs that would impact health care. Sexual [...] Answer Notes Are you a: former smoker Additional Findings: Tobacco User no Additional Findings: Tobacco Non-User Current non-smoker How long has it been since you last smoked? > 10 years REASON FOR REFERRAL No Information VITAL SIGNS No information MEDICATIONS Medication SIG (Take, Route, Frequency, Duration) Notes Start Da te End Date Status Tessalon Perles 100 MG 1 capsule as needed Orally T hree times a day for 10 day(s) Nov, Not-Taking Ibuprofen 200 MG 1 tablet Orally PRN Not-Taking Doxycycline Monohydrate 100 MG 1 capsule Orally every 12 hrs for 10 day(s) Nov, Not-Taking Vitamin D3 5000 UNIT/0.5ML 0.25 ml Orally Once a day for 30 day( s) May, Not-Taking PROCEDURES No Information RESULTS No Results REASON FOR VISIT exposure to covid MEDICAL (GENERAL) HISTORY Type Description Date Medical [...] Information ASSESSMENTS No Information PLAN OF TREATMENT Next Appt Details Provider Name:Stacy Prince, 2021-06-28 08:15:00 AM, [address] [place] [address], , [place], [address], Provider Name:Celestina Fox, 2021-08 08:30:00 AM, [address] [place] [address], [place], [address], Insurance Providers Payer Name Payer Address Payer Phone Insured Name Patient Relati onship to Insured Coverage Start Date Coverage End Date MEDICARE BLUE PPO [address] [facility] BLUE [id number] [address] MARIANA MEHTA self
--- OUTSIDE RECORDS SUMMARY | 2021-01-20 12:37 | CCD ---
Author Author [facility] Organization [facility] Address Unknown Phone Unavailable Care Team Providers Care Sleeve Bottom Feller Name Role Phone Celestina Fox Unavailable PROBLEMS Type Condition ICD9-CM Code [id number] Code Onset Dates Condition S tatus W/U Status Risk SNOMED Code Notes Problem Hearing loss, unspecified hearing loss type, uns pecified laterality H91.90 Active confirmed 36223050 Problem Worsening vision H54.7 Active confirmed 225 893572 Problem Pulmonary fibrosis J84.10 Active confirmed 5 8375439 Problem Hx of basal cell carcinoma Z85.828 Active confirmed 869318330 Problem Tremor R25.1 Active confirmed 72395863 Problem Paroxysmal SVT (supraventricular tachycardia) I47. 1 Active confirmed 54604131 Problem Age-related osteoporosis without current pathological fracture M81.0 Active confirmed 50108060 Problem Vitamin D deficiency E55.9 Active confirmed 20176528 Problem Tinnitus, left H93.12 Active confirmed 26103 63887966 Problem Basal cell carcinoma, forehead C44.319 Active confi rmed [id number] ALLERGIES Allergen (clinical drug ingredient) Drug/Non Drug Allergy do cumented on EMR Reaction Allergy Type Onset Date Status codeine Codeine Sulfate(NDC Code:[address]-08) N/V Drug Al lergy Active Cortisone Skin came off foot,rash Drug Allergy Active cefdinir Cefdinir(NDC Code:[address]-40) Lack of effect for UTI Dr aric Allergy Active ENCOUNTERS from 1944 to 2021-01-06 Encounter Location Date Provider Diagnosis [facility] Lory STRAWBERRY [phone] [place] [address] Dec, 2020 Celestina Fox Paroxysmal SVT (supraventricular tachyca rdia) I47.1 and Tremor R25.1 IMMUNIZATIONS Vaccine Route Administration Date Status Influenza 18 yrs & older Flublok IM Intramuscular Mar 24, 2018 Administered Influenza (High Dose 65 & up) IM Intramuscular Mar 10, 2017 A dministered Moderna #1 dose COVID-19 (given elsewhere) SARSCOV2 VA C 100MCG/0.5ML IM IM Intramuscular Apr 13, 2020 Administered Moderna #2 dose COVID-19 (given elsewhere) SARSCOV2 VA C 100MCG/0.5ML IM IM Intramuscular May 08, 2020 Administered Influenza (High Dose 65 & up) IM Intramuscular Mar 01, 2015 A dministered Pneumococcal Adult 0.5mL Pneumovax 23 IM Intramuscular Nov 15, 2013 Administered Influenza 18 yrs & older Flublok IM Intramuscular Dec 08, 2019 Administered Pneumococcal 0.5mL Prevnar 13 IM Intramuscular [...] Education Language: Question Answer Notes Languages spoken: Luxembourgish Muslim: Question Answer Notes Muslim No alevism beliefs that would impact health care. Sexual [...] smoked? > 10 years REASON FOR REFERRAL from 1944 to 2021-01-06 Reason 75-year-old female with trem or, likely essential tremor. Please evaluate and treat Diagnosis 1 Tremor (R25.1) Referral Organization [facility] Referring Provider First Name Celestina Referring Provider Last Name Ruddy Referring Provider Specialty Family Medicine Referred Provider Jessica Crow Referred Provider Specialty Neurology Referral Priority Routine General Notes Asha Weldon LPN 2020 4:42:12 PM > referral sent VITAL SIGNS Weight 134.4 lbs Dec, Weight-kg 60.96 kg Dec, Height 63 in Dec, BMI 23.81 kg/m2 Dec, Heart Rate 93 /min Dec, Respiratory Rate 17 /min Dec, Temperature 98.4 degrees Fahrenheit Dec, Oximetry 97 Dec, Blood pressure systolic 137 mm Hg Dec, Blood pressure diastolic 81 mm Hg Dec, MEDICATIONS Medication SIG (Take, Route, Frequency, Duration) [...] Information RESULTS No Results REASON FOR VISIT [facility] 12/13, elevated HR, SVT MEDICAL (GENERAL) HISTORY Type Description Date Medical History Hyperlipidemia Medical History Hypertension Medical History Kidney stone Medical History Knee fracture: 04/2009: slip on ice Surgical History Cataracts, bilaterally 2001,2006 Surgical History Tonsillectomy As child Surgical History Tubal ligation 1970 Surgical History Teeth extraction 2009 Surgical History Colonoscopy 06/28/2015 Surgical History Lung biopsy- Dr. Watson 04/2018 Hospitalization History [facility]-kidney stone 09/04/16 Goals Section No Information Health Concerns No Information MEDICAL EQUIPMENT No Information MENTAL STATUS No Information FUNCTIONAL STATUS No Information ASSESSMENTS Encounter Date Diagnosis Assessment Notes Treatment Notes Treatm ent Clinical Notes Dec, Paroxysmal SVT (supraventricular tachycardia) (I CD-10 - I47.1) Patient will keep upcoming appointment with cardiology. Further evaluation as per cardiology. Patient was counseled that if she ever has any recurrence of symptoms that are not improving, recurrence of symptoms that are associated with left arm pain/chest pain/left-sided abdominal pain she should seek immediate medical attention. 16 Dec, 2020 Tremor (ICD-10 - R25.1) Based on history symptoms most likely are an essential tremor. Patient was offered a prescription for low-dose beta-ruthie but at this time she was not interested in any medication that she would have to take on a daily basis. Patient will be referred to neurology for further evaluation. PLAN OF TREATMENT Treatment Notes Assessment Notes Clinical Notes Paroxysmal SVT (supraventricular tachycardia) Patient will keep upcoming appointment with cardiology. Further evaluation as per cardiology. Patient was counseled that if she ever has any recurrence of symptoms that are not improving, recurrence of symptoms that are associated with left arm pain/chest pain/left-sided abdominal pain she should seek immediate medical attention. Tremor Based on history sym ptoms most likely are an essential tremor. Patient was offered a prescription for low-dose beta-ruthie but at this time she was not interested in any medication that she would have to take on a daily basis. Patient will be referred to neurology for further evaluation. Referrals Referral Date Details 75-year-old female with trem or, likely essential tremor. Please evaluate and treat, Jessica Crow Next Appt Details scheduled Reason: Provider Name:Stacy Prince, 2021-06-28 08:15:00 AM, [address] [place] [address], [place], [address], Provider Name:Celestina Fox, 2021-08 08:30:00 AM, [address] [place] [address], [place], [address], Insurance Providers Payer Name Payer Address Payer Phone Insured Name Patient Relati onship to Insured Coverage Start Date Coverage End Date MEDICARE BLUE PPO [address] [facility] [address]UE [id number] [address] MARIANA MEHTA self
--- OUTSIDE RECORDS SUMMARY | 2021-01-20 12:37 | CCD ---
Author Author [facility] Organization [facility] Address Unknown Phone Unavailable Care Team Providers Care Senior Counsel Name Role Phone Suresh Stacy Unavailable PROBLEMS Type Condition ICD9-CM Code [id number] Code Onset Dates Condition S tatus W/U Status Risk SNOMED Code Notes Problem Tremor R25.1 Active confirmed 13456083 Problem Hearing loss, unspecified hearing loss type, uns pecified laterality H91.90 Active confirmed 42976508 Problem Worsening vision H54.7 Active confirmed 225 543612 Problem Basal cell carcinoma, forehead C44.319 Active confi rmed 734128646 Problem Hx of basal cell carcinoma Z85.828 Active confirmed 210208004 Problem Age-related osteoporosis without current pathological fracture M81.0 Active confirmed 80332277 Problem Pulmonary fibrosis J84.10 Active confirmed 5 9836059 Problem Vitamin D deficiency E55.9 Active confirmed 52480952 Problem Tinnitus, left H93.12 Active confirmed 05658 61607128 ALLERGIES Allergen (clinical drug ingredient) Drug/Non Drug Allergy do cumented on EMR Reaction Allergy Type Onset Date Status codeine Codeine Sulfate(NDC Code:[address]-20) N/V Drug Al lergy Active Cortisone Skin came off foot,rash Drug Allergy Active cefdinir Cefdinir(NDC Code:[address]-40) Lack of effect for UTI Dr aric Allergy Active ENCOUNTERS from 1944 to 2021-01-01 Encounter Location Date Provider Diagnosis [facility] Dermatology [address] [facility] [phone] [place] [address] 10 Dec, 2020 Stacy Prince Encounter for screening for malignant neoplasm of skin Z12.83 ; Hx of basal cell carcinoma Z85.828 ; Seborrheic keratoses L82.1 and Smith angioma D18.01 IMMUNIZATIONS Vaccine Route Administration Date Status Moderna [...] Education Language: Question Answer Notes Languages spoken: Yakut Congregational: Question Answer Notes Congregational No orthodox beliefs that would impact health care. Sexual [...] FOR REFERRAL No Information VITAL SIGNS Weight 135.0 lbs Dec, Height 63 in Dec, BMI 23.91 kg/m2 Dec, Blood pressure systolic 136 mm Hg Dec, Blood pressure diastolic 76 mm Hg Dec, MEDICATIONS Medication SIG (Take, Route, Frequency, Duration) Notes Start Da te End Date Status Tessalon Perles 100 MG 1 capsule as needed Orally T hree times a day for 10 day(s) Nov, Not-Taking Vitamin D3 5000 UNIT/0.5ML 0.25 ml Orally Once a day for 30 day( s) May, Not-Taking Ibuprofen 200 MG 1 tablet Orally PRN Not-Taking Doxycycline Monohydrate 100 MG 1 capsule Orally every 12 hrs for 10 day(s) Nov, Not-Taking PROCEDURES No Information RESULTS No Results REASON FOR VISIT 6 MO FBSE MEDICAL (GENERAL) HISTORY Type Description Date Medical [...] Treatment Notes Treatm ent Clinical Notes Dec, Encounter for screening for malignant neoplasm of skin (ICD-10 - Z12.83) Patient counseled on signs and symptoms of skin cancer including ABCDE's of Melanoma. Patient counseled to wear sunscreen or use sun protective clothing when outdoors. Avoid peak hours of sun between 10-2. Patient instructed to call with any new or changing lesions. Dec, Hx of basal cell carcinoma (ICD-10 - Z85.828) NER Dec, Seborrheic keratoses (ICD-10 - L82.1) Benign Lesion Counseling. The patient was extensively counseled regarding the benign nature of the lesion but that skin cancer may arise in this area just as it would anywhere on their skin. For that reason, return to clinic was recommended for any acute changes, itching, burning, or bleeding. The patient was educated that benign lesions are not a covered insurance benefit and treatment would be elective and cosmetic. They expressed understanding. 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 Patient counseled to wear sunscreen or use sun protective clothing when outdoors. Avoid peak hours of sun between 10-2. Patient instructed to call with any new or changing lesions. Hx of basal cell carcinoma NER Seborrheic keratoses Benign Lesion Counseling. Th e patient was extensively counseled regarding the benign nature of the lesion but that skin cancer may arise in this area just as it would anywhere on their skin. For that reason, return to clinic was recommended for any acute changes, itching, burning, or bleeding. The patient was educated that benign lesions are not a covered insurance benefit and treatment would be elective and cosmetic. They expressed understanding. Smith angioma Benign, reassurance Next Appt Details 6 Months Reason:FBSE Hx BCC Provider Name:Celestina Fox, 2020-12 11:00:00 AM, [address] , , [place], [address], Provider Name:Stacy Prince, 2021-06-28 08:15:00 AM, [address] [place] [address], , [place], [place], [id number], Provider Name:Celestina Fox, 2021-08 08:30:00 AM, [address] , , [place], [address], Follow Up:6 MonthsFBSE Hx BCC Insurance Providers Payer Name Payer Address Payer Phone Insured Name Patient Relati onship to Insured Coverage Start Date Coverage End Date MEDICARE BLUE PPO [id number] [address] MARIANA MEHTA self
--- OUTSIDE RECORDS SUMMARY | 2021-01-20 12:37 | CCD | Continuity of Care Document ---
Author Author Ellie LYN Organization Unknown Address [address] [place] [address] [place] [address] Phone [phone] Problems Description No Information Available Social History Type Date Description Comments Sex Unknown Allergies and adverse reactions Description No Information Available Medications Description No Information Available Immunizations Description No Information Available Vital Signs Description No Information Available Results Description No Information Available Procedures Description No Information Available Medical Devices Description No Information Available Encounters Description No Information Available Assessments Description No Information Available Plan of Treatment No Information Available Functional Status Description No Information Available Mental Status Description No Information Available Referrals Description No Information Available
--- OUTSIDE RECORDS SUMMARY | 2021-01-20 12:37 | CCD | Continuity of Care Document ---
Author Author Ellie LYN Organization Unknown Address [address] [place] [address] [place] [address] Phone [phone] Problems Description No Information Available Social History Type Date Description Comments Sex Unknown Allergies and adverse reactions Description No Information Available Medications Description No Information Available Immunizations Description No Information Available Vital Signs Description No Information Available Results Description No Information Available Procedures Description No Information Available Medical Devices Description No Information Available Encounters Description No Information Available Assessments Date Code Description Provider 12/18/2020 Z20.828 Contact with and (mccann spected) exposure to other viral communicable diseases Marcos Nash Plan of Treatment No Information Available Functional Status Description No Information Available Mental Status Description No Information Available Referrals Description No Information Available
--- OUTSIDE RECORDS SUMMARY | 2021-01-20 12:38 | CCD ---
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 Operator Name Role Phone Fons, M Cara COLD HEADER Unavailable Unavailable Fons, M Cara COLD HEADER Unavailable Unavailable Fons, M Cara COLD HEADER Unavailable Unavailable Fons, M Cara COLD HEADER Unavailable Unavailable Fons, M Cara COLD HEADER Unavailable Unavailable Fons, M Cara COLD HEADER Unavailable Unavailable Fons, M Cara COLD HEADER Unavailable Unavailable Fons, M Cara COLD HEADER Unavailable Unavailable Fons, M Cara COLD HEADER Unavailable Unavailable Fons, M Cara COLD HEADER Unavailable Unavailable Fons, M Cara COLD HEADER Unavailable Unavailable Fons, M Cara COLD HEADER Unavailable Unavailable Fons, M Cara COLD HEADER Unavailable Unavailable Fons, M Cara COLD HEADER Unavailable Unavailable Fons, M Cara COLD HEADER Unavailable Unavailable Fons, M Cara COLD HEADER Unavailable Unavailable Fons, M Cara COLD HEADER Unavailable Unavailable Fons, M Cara COLD HEADER Unavailable Unavailable Fons, M Cara COLD HEADER Unavailable Unavailable Fons, M Cara COLD HEADER Unavailable Unavailable Fons, M Cara COLD HEADER Unavailable Unavailable Fons, M Cara COLD HEADER Unavailable Unavailable Fons, M Cara COLD HEADER Unavailable Unavailable Fons, M Cara COLD HEADER Unavailable Unavailable Fons, M Cara COLD HEADER Unavailable Unavailable Fons, M Cara COLD HEADER Unavailable Unavailable Fons, M Cara COLD HEADER Unavailable Unavailable Fons, M Cara COLD HEADER Unavailable Unavailable Fons, M Cara COLD HEADER Unavailable Unavailable Fons, M Cara COLD HEADER Unavailable Unavailable Fons, M Cara COLD HEADER Unavailable Unavailable Fons, M Cara COLD HEADER Unavailable Unavailable Fons, M Cara COLD HEADER Unavailable Unavailable Fons, M Cara COLD HEADER Unavailable Unavailable Fons, M Cara COLD HEADER Unavailable Unavailable Fons, M Cara COLD HEADER Unavailable Unavailable Fons, M Cara COLD HEADER Unavailable Unavailable Fons, M Cara COLD HEADER Unavailable Unavailable Fons, M Cara COLD HEADER Unavailable Unavailable Fons, M Cara COLD HEADER Unavailable Unavailable Fons, M Cara COLD HEADER Unavailable Unavailable Fons, M Cara COLD HEADER Unavailable Unavailable Fons, M Cara COLD HEADER Unavailable Unavailable Fons, M Cara COLD HEADER Unavailable Unavailable Fons, M Cara COLD HEADER Unavailable Unavailable Fons, M Cara COLD HEADER Unavailable Unavailable Fons, M Cara COLD HEADER Unavailable Unavailable Fons, M Cara COLD HEADER Unavailable Unavailable Fons, M Cara COLD HEADER Unavailable Unavailable Fons, M Cara COLD HEADER Unavailable Unavailable Fons, M Cara COLD HEADER Unavailable Unavailable Fons, M Cara COLD HEADER Unavailable Unavailable Fons, M Cara COLD HEADER Unavailable Unavailable Heath Watson MD Unavailable Unavailable [...] Heath Watson MD Unavailable Unavailable Watson, Heath John Paul [...] Watson, Heath John Paul MD Unavailable Unavailable Re-disclosure Warning The records [...] is protected by Article 27-F of the [facility] Public Health law. If you continue you may have access to information: Regarding HIV / AIDS; Provided by facilities licensed or operated by the [facility] Office of Mental Health; or Provided by the [facility] Office for People With Developmental Disabilities. If such information is present, then the following [facility] mandated warning applies: This information has [...] law may result in a fine or custodial sentence or both. A general authorization for the release of medical or other information is NOT sufficient authorization for further disc losure. Family History Family Member Name Family Member Gender Family Member Status Date o f Status Description Data Source(s) Unknown Unknown Problem MEDENT ([facility]) Unknown Female Problem MEDENT ([facility]) Unknown Female Problem MEDENT ([facility]) Unknown Female Problem MEDENT ([facility]) Unknown Female Problem MEDENT ([facility]) Encounters Encounter Providers Location Date Indications Data Source(s ) [place] [address] [address] 01/15/2021 12:00:00 AM EST eCW1 ([facility]) Outpatient Attender: Cara MACKENZIE [email or web address] 12:00:00 AM EST - 01/08/2021 09:03:36 AM EST [facility] [address] [address] 01/02/2021 12:00:00 AM EST eCW1 ([facility]) [place] [address] [address] 12/27/2020 12:00:00 AM EST eCW1 ([facility]) Outpatient Attender: John Paul Avendano/Alvin/Guillermo/R eindl 12/07/2020 03:15:00 PM EDT MEDENT ([facility] [place] [address] [address] 11/21/2020 12:00:00 AM EDT eCW1 ([facility]) [place] [address] [address] 11/20/2020 12:00:00 AM EDT eCW1 ([facility]) Outpatient Attender: John Paul Avendano/Alvin/Guillermo/R eindl 09/01/2020 10:30:00 AM EDT MEDENT ([facility] [place] [address] [address] 08/31/2020 12:00:00 AM EDT eCW1 ([facility]) [place] [address] [address] 06/26/2020 12:00:00 AM EDT eCW1 ([facility]) Outpatient Attender: John Paul Avendano/Alvin/Hiral veronica 02/24/2020 02:30:00 PM EST MEDENT ([facility] [place] [address] [address] 12/27/2019 12:00:00 AM EST eCW1 ([facility]) [place] [address] [address] 12/08/2019 12:00:00 AM EDT eCW1 ([facility]) Immunizations Vaccine Date Status Description Data Source(s) COVID-19 VACCINE Moderna 12/28/2020 12:00:00 AM EST completed [facility] Vaccine Series Complete: YESThis Data wa s Submitted to [facility] Via [facility]. Moderna #2 dose COVID-19 (given elsewhere) SARSCOV2 VA C 100MCG/0.5ML IM 05/08/2020 07:48:00 AM EDT completed eCW1 ([facility]) Moderna #2 dose COVID-19 (given elsewhere) SARSCOV2 VA C 100MCG/0.5ML IM 05/08/2020 07:48:00 AM EDT completed eCW1 ([facility]) Moderna #2 dose COVID-19 (given elsewhere) SARSCOV2 VA C 100MCG/0.5ML IM 05/08/2020 07:48:00 AM EDT completed eCW1 ([facility]) Moderna #2 dose COVID-19 (given elsewhere) SARSCOV2 VA C 100MCG/0.5ML IM 05/08/2020 07:48:00 AM EDT completed eCW1 ([facility]) Moderna #2 dose COVID-19(given elsewhere) SARSCOV2 VAC 100MCG/0.5ML IM 05/08/2020 07:48:00 AM EDT completed eCW1 ([facility]) Moderna #2 dose COVID-19(given elsewhere) SARSCOV2 VAC 100MCG/0.5ML IM 05/08/2020 07:48:00 AM EDT completed eCW1 ([facility]) COVID-19 VACCINE Moderna 05/08/2020 12:00:00 AM EDT completed [facility] Vaccine Series Complete: YESThis Data wa s Submitted to [facility] Via [facility]. Moderna #1 dose COVID-19 (given elsewhere) SARSCOV2 VA C 100MCG/0.5ML IM 04/13/2020 07:47:00 AM EST completed eCW1 ([facility]) Moderna #1 dose COVID-19 (given elsewhere) SARSCOV2 VA C 100MCG/0.5ML IM 04/13/2020 07:47:00 AM EST completed eCW1 ([facility]) Moderna #1 dose COVID-19 (given elsewhere) SARSCOV2 VA C 100MCG/0.5ML IM 04/13/2020 07:47:00 AM EST completed eCW1 ([facility]) Moderna #1 dose COVID-19 (given elsewhere) SARSCOV2 VA C 100MCG/0.5ML IM 04/13/2020 07:47:00 AM EST completed eCW1 ([facility]) Moderna #1 dose COVID-19(given elsewhere) SARSCOV2 VAC 100MCG/0.5ML IM 04/13/2020 07:47:00 AM EST completed eCW1 ([facility]) Moderna #1 dose COVID-19(given elsewhere) SARSCOV2 VAC 100MCG/0.5ML IM 04/13/2020 07:47:00 AM EST completed eCW1 ([facility]) influenza, recombinant, quadrIvalent,injectable, prese rvative free 12/08/2019 03:45:00 PM EDT completed eCW1 ([facility]) influenza, recombinant, quadrIvalent,injectable, prese rvative free 12/08/2019 03:45:00 PM EDT completed eCW1 ([facility]) influenza, recombinant, quadrIvalent,injectable, prese rvative free 12/08/2019 03:45:00 PM EDT completed eCW1 ([facility]) influenza, recombinant, quadrIvalent,injectable, prese rvative free 12/08/2019 03:45:00 PM EDT completed eCW1 ([facility]) influenza, recombinant, quadrIvalent,injectable, prese rvative free 12/08/2019 03:45:00 PM EDT completed eCW1 ([facility]) influenza, recombinant, quadrIvalent,injectable, prese rvative free 12/08/2019 03:45:00 PM EDT completed eCW1 ([facility]) influenza, recombinant, quadrIvalent,injectable, prese rvative free 12/08/2019 03:45:00 PM EDT completed eCW1 ([facility]) influenza, recombinant, quadrIvalent,injectable, prese rvative free 12/08/2019 03:45:00 PM EDT completed eCW1 ([facility]) influenza, recombinant, quadrIvalent,injectable, prese rvative free 12/08/2019 03:45:00 PM EDT completed eCW1 ([facility]) Medications Medication Brand Name Start Date Product Form Dose Route Admi nistrative Instructions Pharmacy Instructions Status Indications Reaction Description Data Source(s) Doxycycline Monohydrate 100 MG Oral Capsule Doxycycline [place] hydrate 100 MG 11/21/2020 12:00:00 AM EDT 1.0 {capsule} suspend ed Doxycycline Monohydrate 100 MG eCW1 ([facility]) benzonatate 100 MG Oral Capsule [Tessalon Perles] Chrissy marilyn Perles 100 MG Tessalon Perles 100 MG 11/21/2020 12:00:00 AM EDT 1.0 {capsule_as_nee ded} active Tessalon Perles 100 MG eCW1 ([facility]) benzonatate 100 MG Oral Capsule [Tessalon Perles] Chrissy marilyn Perles 100 MG Tessalon Perles 100 MG 11/21/2020 12:00:00 AM EDT 1.0 {capsule_as_nee ded} suspended Tessalon Perles 100 MG eCW1 ([facility]) Doxycycline Monohydrate 100 MG Oral Capsule Doxycycline [place] hydrate 100 MG 11/21/2020 12:00:00 AM EDT 1.0 {capsule} active Doxycycline Monohydrate 100 MG eCW1 ([facility]) Tessalon Perles 100 MG UNK 11/21/2020 12:00:00 AM EDT 1.0 {capsule_as_needed} suspended Tessalon Perles 100 MG eCW1 ([facility]) benzonatate 100 MG Oral Capsule [Tessalon Perles] Chrissy marilyn Perles 100 MG Tessalon Perles 100 MG 11/21/2020 12:00:00 AM EDT 1.0 {capsule_as_nee ded} active Tessalon Perles 100 MG eCW1 ([facility]) Doxycycline Monohydrate 100 MG Oral Capsule Doxycycline [place] hydrate 100 MG 11/21/2020 12:00:00 AM EDT 1.0 {capsule} suspend ed Doxycycline Monohydrate 100 MG eCW1 ([facility]) Doxycycline Monohydrate 100 MG Oral Capsule Doxycycline [place] hydrate 100 MG 11/21/2020 12:00:00 AM EDT 1.0 {capsule} suspend ed Doxycycline Monohydrate 100 MG eCW1 ([facility]) Doxycycline Monohydrate 100 MG Oral Capsule Doxycycline [place] hydrate 100 MG 11/21/2020 12:00:00 AM EDT 1.0 {capsule} active Doxycycline Monohydrate 100 MG eCW1 ([facility]) benzonatate 100 MG Oral Capsule [Tessalon Perles] Chrissy marilyn Perles 100 MG Tessalon Perles 100 MG 11/21/2020 12:00:00 AM EDT 1.0 {capsule_as_nee ded} suspended Tessalon Perles 100 MG eCW1 ([facility]) Insurance Providers Payer name Policy type / Coverage type Policy ID Covered republican ID Covered republican's relationship to sotomayor Policy Sotomayor Plan Information [facility] MEDICARE [id number] Anai [id number] MEDICARE BLUE PPO 306 [id number] SP [id number] [facility] [id number] S [id number] MEDICARE BLUE PPO 306 [id number] SP [id number] ANSI-Medicare Part B [id number] ANSI-Medicare Part B [id number] ANSI-Medicare Part B [id number] ANSI-Medicare Part B [id number] ANSI-Medicare Part B [id number] ANSI-Medicare Part B [id number] ANSI-Medicare Part B [id number] ANSI-Medicare Part B [id number] ANSI-Medicare Part B [id number] [facility] [id number] S [id number] ANSI-Medicare Part B [id number] ANSI-Medicare Part B [id number] ANSI-Medicare Part B [id number] [employer] [id number] S [id number] [place]ICARE [place] [id number] S [id number] [facility] [id number] S [id number] BS Medicare Ppo Commercial [id number] Self [employer] BCBS P [id number] S [id number] MEDICARE BLUE PPO 306 [id number] SP [id number] MEDICARE BLUE PPO 306 [id number] SP [id number] EX[employer]LLUS BCBS [facility] [id number] S [id number] Medicare Blue Ppo Commercial [id number] Self [id number] Problems, Conditions, and Diagnoses Code Display Name Description Problem Type Effective Dates Data Source(s) I47.1 Supraventricular tachycardia Supraventricular tachycar malissa Diagnosis 01/08/2021 07:59:26 AM EST [facility] I47.1 [id number] Paroxysmal SVT (supraventricular tachycar malissa) Problem 01/02/2021 12:00:00 AM EST eCW1 ([facility]) H93.12 [id number] Tinnitus, left Problem 08/31/2020 12:00:0 0 AM EDT eCW1 ([facility]) Z85.828 [id number] Hx of basal cell carcinoma Problem 0 12:00:00 AM EST eCW1 ([facility]) Surgeries/Procedures Procedure Description Date Indications Data Source(s) Spirometry 12/07/2020 12:00:00 AM EDT EDENT ([facility], ) Plethysmography Determination Lung Volumes & Per Airway Resi st 12/07/2020 12:00:00 AM EDT MEDENT ([facility], ) DIFFUSING CAPACITY 12/07/2020 12:00:00 AM EDT MEDENT ([facility]) OFFICE OUTPATIENT VISIT 25 MINUTES 12/07/2020 12:00:00 AM EDT MEDENT ([facility]) Spirometry 09/01/2020 12:00:00 AM EDT M EDENT ([facility]) Plethysmography Determination Lung Volumes & Per Airway Resi st 09/01/2020 12:00:00 AM EDT MEDENT ([facility], ) DIFFUSING CAPACITY 09/01/2020 12:00:00 AM EDT MEDENT ([facility]) OFFICE OUTPATIENT VISIT 25 MINUTES 09/01/2020 12:00:00 AM EDT MEDENT ([facility]) Immunization: Flublok Quadrivalent (18 years & older) 0.5mL IM (Influenza) 12/08/2019 12:00:00 AM EDT eCW1 ([facility]) Results ID Date Data Source [id number] 01/17/2021 12:00:00 AM EST [facility] Name Value Range Interpretation Code Description Data Rebekah rce(s) Supporting Document(s) SARS-CoV2 Rapid Antigen Negative [facility] This lab was ordered by [facility] and reported by [facility]. ID Date Data Source MYRIAM CHEST 2 VIEW 11/21/2020 12:00:00 AM EDT eCW1 ([facility]) Name Value Range Interpretation Code Description Data Rebekah rce(s) Supporting Document(s) Laboratory studies (set) MYRIAM CHEST 2 VIEW eCW1 ([facility]) ID Date Data Source TSH 08/31/2020 12:00:00 AM EDT eCW1 ([facility]) Name Value Range Interpretation Code Description Data Rebekah rce(s) Supporting Document(s) 2.450 0.358-3.740 THYROID STIMULATING HORM ONE eCW1 ([facility]) ID Date Data Source MAGNESIUM LEVEL 08/31/2020 12:00:00 AM EDT eCW1 ([facility]) Name Value Range Interpretation Code Description Data Rebekah rce(s) Supporting Document(s) 2.5 1.8-2.4 MAGNESIUM LEVEL eCW1 ([facility]) ID Date Data Source Basic Metabolic Profile (BMP) 08/31/2020 12:00:00 AM EDT eCW 1 ([facility]) Name Value Range Interpretation Code Description Data Rebekah rce(s) Supporting Document(s) 83 70-100 GLUCOSE, FASTING eCW1 ([facility]) 15 7-18 BLOOD UREA NITROGEN eCW1 ([facility]) 4.6 3.5-5.1 POTASSIUM SERUM eCW1 ([facility]) > 60.0 >39 GLOMERULAR FILTRATION RATE eCW 1 ([facility]) 0.74 0.55-1.30 CREATININE FOR GFR eCW1 ([facility]) 142 136-145 SODIUM LEVEL eCW1 ([facility]) 109 98-107 CHLORIDE LEVEL eCW1 ([facility]) 8.9 8.8-10.2 CALCIUM LEVEL eCW1 ([facility]) 29 21-32 CARBON DIOXIDE LEVEL eCW1 ([facility]) ID Date Data Source FREE T4 08/31/2020 12:00:00 AM EDT eCW1 ([facility]) Name Value Range Interpretation Code Description Data Rebekah rce(s) Supporting Document(s) 0.89 0.76-1.46 FREE T4 eCW1 ([facility]) ID Date Data Source CBC with Differential 08/31/2020 12:00:00 AM EDT eCW1 ([facility]) Name Value Range Interpretation Code Description Data Rebekah rce(s) Supporting Document(s) 13.5 12.0-15.5 HEMOGLOBIN eCW1 ([facility]) 6.9 4.0-10.0 WHITE BLOOD COUNT eCW1 ([facility]) 4.87 4.00-5.40 RED BLOOD COUNT eCW1 ([facility]) 27.7 27.0-33.0 MEAN CORPUSCULAR HEMOGLOB IN eCW1 ([facility]) 43.4 36.0-47.0 HEMATOCRIT eCW1 ([facility]) 89.1 80.0-96.0 MEAN CORPUSCULAR VOLUME e CW1 ([facility]) 56.8 36.0-66.0 NEUTROPHILS % eCW1 ([facility]) 31.1 32.0-36.5 MEAN CORPUSCULAR HGB CONC eCW1 ([facility]) 251 150-450 PLATELET COUNT, AUTOMATED eCW1 ([facility]) 13.2 11.5-14.5 RED CELL DISTRIBUTION WID TH eCW1 ([facility]) 8.0 2.0-8.0 MONO % eCW1 ([facility]) 2.0 0.0-3.0 EOS % eCW1 ([facility]) 32.1 24.0-44.0 LYMPH % eCW1 ([facility]) 1.0 0.0-1.0 BASO % eCW1 ([facility]) 2.2 1.5-5.0 LYMPH # eCW1 ([facility]) 3.9 1.5-8.5 NEUTROPHILS # eCW1 ([facility]) 0.6 0.0-0.8 MONO # eCW1 ([facility]) 0.1 0.0-0.2 BASO # eCW1 ([facility]) 0.1 0.0-0.5 EOS # eCW1 ([facility]) Procedure Social History Code Duration Value Status Description Data Source(s ) Smoking 01/02/2021 12:00:00 AM EST Former Smoker completed Former Smoker eCW1 ([facility]) Smoking 01/02/2021 12:00:00 AM EST Former Smoker completed Former Smoker eCW1 ([facility]) Smoking 12/27/2020 12:00:00 AM EST Former Smoker completed Former Smoker eCW1 ([facility]) Smoking 12/07/2020 12:00:00 AM EDT - 02/17/2001 12:00:00 AM EST Patient is a former smoker completed Patient is a former smoker MEDENT ([facility], ) Smoking 11/21/2020 12:00:00 AM EDT Former Smoker completed Former Smoker eCW1 ([facility]) Smoking 11/21/2020 12:00:00 AM EDT Former Smoker completed Former Smoker eCW1 ([facility]) Smoking 08/31/2020 12:00:00 AM EDT Former Smoker completed Former Smoker eCW1 ([facility]) Smoking 06/26/2020 12:00:00 AM EDT Former Smoker completed Former Smoker eCW1 ([facility]) Smoking 12/27/2019 12:00:00 AM EST Former Smoker completed Former Smoker eCW1 ([facility]) Vital Signs ID Date Data Source UNK Name Value Range Interpretation Code Description Data Source(s) Body weight 134.4 [lb_av] 134.4 [lb_av] eCW1 ([facility]) Body weight 60.96 kg 60.96 kg W1 ([facility]) Body height 63 [in_i] 63 [in_i] eCW1 ([facility]) Body mass index (BMI) [Ratio] 23.81 kg/m2 23.81 kg/m2 W1 ([facility]) Heart rate 93 /min 93 /min eCW1 ([facility]) Respiratory rate 17 /min 17 /min eCW1 ([facility]) Body temperature 98.4 [degF] 98.4 [degF] eCW1 ( [facility]) Systolic blood pressure 137 mm[Hg] 137 mm[Hg] e CW1 ([facility]) Diastolic blood pressure 81 mm[Hg] 81 mm[Hg] eCW1 ([facility]) Body weight 135.0 [lb_av] 135.0 [lb_av] eCW1 ([facility]) Body height 63 [in_i] 63 [in_i] eCW1 ([facility]) Body mass index (BMI) [Ratio] 23.91 kg/m2 23.91 kg/m2 eCW1 ([facility]) Systolic blood pressure 136 mm[Hg] 136 mm[Hg] e CW1 ([facility]) Diastolic blood pressure 76 mm[Hg] 76 mm[Hg] eCW1 ([facility]) Systolic blood pressure 120 mm[Hg] 120 mm[Hg] M EDENT ([facility], ) Body weight 61.236 kg 61.236 kg [facility] ([facility]) Diastolic blood pressure 80 mm[Hg] 80 mm[Hg] [facility] ([facility]) Body mass index (BMI) [Ratio] 23.9 kg/m2 23.9 k g/m2 [facility] ([facility]) Body surface area Derived from formula 1.64 m2 1.64 m2 [facility] ([facility]) Body weight 135.00 [lb_av] 135.00 [lb_av] MEDEN T ([facility], ) [place] body weight 115 [lb_av] 115 [lb_av] MEDEN T ([facility]) Heart rate 77 /min 77 /min [facility] ([facility], ) Oxygen saturation in Arterial blood by Pulse oximetry 98 % 98 % [facility] ([facility], ) Body height 63 [in_i] 63 [in_i] [facility] 5'3" Body weight 133 [lb_av] 133 [lb_av] eCW1 ([facility]) Body height 63 [in_i] 63 [in_i] eCW1 ([facility]) Body mass index (BMI) [Ratio] 23.56 kg/m2 23.56 kg/m2 W1 ([facility]) Heart rate 76 /min 76 /min eCW1 ([facility]) Respiratory rate 18 /min 18 /min eCW1 ([facility]) Body temperature 98.2 [degF] 98.2 [degF] eCW1 ( [facility]) Systolic blood pressure 132 mm[Hg] 132 mm[Hg] e CW1 ([facility]) Diastolic blood pressure 85 mm[Hg] 85 mm[Hg] eCW1 ([facility]) Body height 63 [in_i] 63 [in_i] [facility] ([facility]) 5'3" Body weight 136.00 [lb_av] 136.00 [lb_av] MEDEN T ([facility]) Body mass index (BMI) [Ratio] 24.1 kg/m2 24.1 k g/m2 [facility] ([facility]) [place] body weight 115 [lb_av] 115 [lb_av] [facility] Body weight 61.690 kg 61.690 kg [facility] ([facility]) Oxygen saturation in Arterial blood by Pulse oximetry 98 % 98 % [facility] ([facility]) Body temperature 97.2 [degF] 97.2 [degF] [facility] ([facility]) Systolic blood pressure 128 mm[Hg] 128 mm[Hg] M EDENT ([facility]) Diastolic blood pressure 82 mm[Hg] 82 mm[Hg] [facility] ([facility]) Heart rate 61 /min 61 /min [facility] ([facility]) Body surface area Derived from formula 1.64 m2 1.64 m2 [facility] ([facility]) Body weight 137 [lb_av] 137 [lb_av] eCW1 ([facility]) Body height 63 [in_i] 63 [in_i] eCW1 ([facility]) Body mass index (BMI) [Ratio] 24.27 kg/m2 24.27 kg/m2 eCW1 ([facility]) Heart rate 61 /min 61 /min eCW1 ([facility]) Respiratory rate 18 /min 18 /min eCW1 ([facility]) Body temperature 97.1 [degF] 97.1 [degF] eCW1 ( [facility]) Systolic blood pressure 135 mm[Hg] 135 mm[Hg] e CW1 ([facility]) Diastolic blood pressure 69 mm[Hg] 69 mm[Hg] eCW1 ([facility]) Body weight 144 [lb_av] 144 [lb_av] eCW1 ([facility]) Body height 63 [in_i] 63 [in_i] eCW1 ([facility]) Body mass index (BMI) [Ratio] 25.51 kg/m2 25.51 kg/m2 eCW1 ([facility]) Systolic blood pressure 136 mm[Hg] 136 mm[Hg] e CW1 ([facility]) Diastolic blood pressure 74 mm[Hg] 74 mm[Hg] eCW1 ([facility]) Oxygen saturation in Arterial blood by Pulse oximetry 98 % 98 % [facility], [facility] Room Air Body height 63 [in_i] 63 [in_i] MEDENT ([facility], ) 5'3" [place] body weight 115 [lb_av] 115 [lb_av] MEDEN T ([facility], ) Body height 63 [in_i] 63 [in_i] MEDENT ([facility], ) 5'3" [place] body weight 115 [lb_av] 115 [lb_av] MEDEN T ([facility], ) Systolic blood pressure 120 mm[Hg] 120 mm[Hg] M EDENT ([facility], ) Diastolic blood pressure 70 mm[Hg] 70 mm[Hg] MEDENT ([facility], ) Heart rate 70 /min 70 /min [facility], ) Oxygen saturation in Arterial blood by Pulse oximetry 98 % 98 % [facility], [facility] Room Air Body weight 139.2 [lb_av] 139.2 [lb_av] eCW1 ([facility]) Body height 63 [in_i] 63 [in_i] eCW1 ([facility]) Body mass index (BMI) [Ratio] 24.66 kg/m2 24.66 kg/m2 eCW1 ([facility]) Systolic blood pressure 138 mm[Hg] 138 mm[Hg] e CW1 ([facility]) Diastolic blood pressure 78 mm[Hg] 78 mm[Hg] eCW1 ([facility]) Patient Treatment Plan of Care Planned Activity Planned Date Details Description Data Source (s) Doxycycline Monohydrate 100 MG Oral Capsule 11/21/2020 12:00:00 AM EDT eCW1 ([facility]) benzonatate 100 MG Oral Capsule [Tessalon Perles] 11/21/2020 12: 00:00 AM EDT eCW1 ([facility]) Doxycycline Monohydrate 100 MG Oral Capsule 11/21/2020 12:00:00 AM EDT eCW1 ([facility]) benzonatate 100 MG Oral Capsule [Tessalon Perles] 11/21/2020 12: 00:00 AM EDT eCW1 ([facility])
[2021-01-20] MEDS ORDERED: ADENOSINE 6MG/2ML INJECTION (J0153) IV STA (12:47)
[2021-01-20] MEDS ORDERED: METO1TAB32 PO (12:48)
[2021-01-20] MEDS ORDERED: NS 1,000 ML IV ONE (13:05)
[2021-01-20 13:19] LABS: BASO # 0.1 10^3/uL (0.0-0.2); BASO % 0.6 % (0.0-1.0); EOS # 0.2 10^3/uL (0.0-0.5); EOS % 1.6 % (0.0-3.0); HEMATOCRIT 46.5 % (36.0-47.0); LYMPH % 35.3 % (24.0-44.0); MEAN CORPUSCULAR HEMOGLOBIN 28.5 pg (27.0-33.0); MEAN CORPUSCULAR HGB CONC 32.3 g/dl (32.0-36.5); MEAN CORPUSCULAR VOLUME 88.4 fl (80.0-96.0); MONO # 0.6 10^3/uL (0.0-0.8); MONO % 5.4 % (2.0-8.0); NEUTROPHILS # 6.4 10^3/uL (1.5-8.5); NEUTROPHILS % 56.7 % (36.0-66.0); PLATELET COUNT, AUTOMATED 315 10^3/uL (150-450); RED BLOOD COUNT 5.26 10^6/uL (4.00-5.40); WHITE BLOOD COUNT 11.2 10^3/uL (4.0-10.0)
--- OUTSIDE RECORDS SUMMARY | 2021-01-20 13:48 | CCD ---
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 Melter Loader Name Role Phone Fons, M Cara MANAGER WEALTH MANAGEMENT Unavailable Unavailable Fons, M Cara MANAGER WEALTH MANAGEMENT Unavailable Unavailable Fons, M Cara MANAGER WEALTH MANAGEMENT Unavailable Unavailable Fons, M Cara MANAGER WEALTH MANAGEMENT Unavailable Unavailable Fons, M Cara MANAGER WEALTH MANAGEMENT Unavailable Unavailable Fons, M Cara MANAGER WEALTH MANAGEMENT Unavailable Unavailable Fons, M Cara MANAGER WEALTH MANAGEMENT Unavailable Unavailable Fons, M Cara MANAGER WEALTH MANAGEMENT Unavailable Unavailable Fons, M Cara MANAGER WEALTH MANAGEMENT Unavailable Unavailable Fons, M Cara MANAGER WEALTH MANAGEMENT Unavailable Unavailable Fons, M Cara MANAGER WEALTH MANAGEMENT Unavailable Unavailable Fons, M Cara MANAGER WEALTH MANAGEMENT Unavailable Unavailable Fons, M Cara MANAGER WEALTH MANAGEMENT Unavailable Unavailable Fons, M Cara MANAGER WEALTH MANAGEMENT Unavailable Unavailable Fons, M Cara MANAGER WEALTH MANAGEMENT Unavailable Unavailable Fons, M Cara MANAGER WEALTH MANAGEMENT Unavailable Unavailable Fons, M Cara MANAGER WEALTH MANAGEMENT Unavailable Unavailable Fons, M Cara MANAGER WEALTH MANAGEMENT Unavailable Unavailable Fons, M Cara MANAGER WEALTH MANAGEMENT Unavailable Unavailable Fons, M Cara MANAGER WEALTH MANAGEMENT Unavailable Unavailable Fons, M Cara MANAGER WEALTH MANAGEMENT Unavailable Unavailable Fons, M Cara MANAGER WEALTH MANAGEMENT Unavailable Unavailable Fons, M Cara MANAGER WEALTH MANAGEMENT Unavailable Unavailable Fons, M Cara MANAGER WEALTH MANAGEMENT Unavailable Unavailable Fons, M Cara MANAGER WEALTH MANAGEMENT Unavailable Unavailable Fons, M Cara MANAGER WEALTH MANAGEMENT Unavailable Unavailable Fons, M Cara MANAGER WEALTH MANAGEMENT Unavailable Unavailable Fons, M Cara MANAGER WEALTH MANAGEMENT Unavailable Unavailable Fons, M Cara MANAGER WEALTH MANAGEMENT Unavailable Unavailable Fons, M Cara MANAGER WEALTH MANAGEMENT Unavailable Unavailable Fons, M Cara MANAGER WEALTH MANAGEMENT Unavailable Unavailable Fons, M Cara MANAGER WEALTH MANAGEMENT Unavailable Unavailable Fons, M Cara MANAGER WEALTH MANAGEMENT Unavailable Unavailable Fons, M Cara MANAGER WEALTH MANAGEMENT Unavailable Unavailable Fons, M Cara MANAGER WEALTH MANAGEMENT Unavailable Unavailable Fons, M Cara MANAGER WEALTH MANAGEMENT Unavailable Unavailable Fons, M Cara MANAGER WEALTH MANAGEMENT Unavailable Unavailable Fons, M Cara MANAGER WEALTH MANAGEMENT Unavailable Unavailable Fons, M Cara MANAGER WEALTH MANAGEMENT Unavailable Unavailable Fons, M Cara MANAGER WEALTH MANAGEMENT Unavailable Unavailable Fons, M Cara MANAGER WEALTH MANAGEMENT Unavailable Unavailable Fons, M Cara MANAGER WEALTH MANAGEMENT Unavailable Unavailable Fons, M Cara MANAGER WEALTH MANAGEMENT Unavailable Unavailable Fons, M Cara MANAGER WEALTH MANAGEMENT Unavailable Unavailable Fons, M Cara MANAGER WEALTH MANAGEMENT Unavailable Unavailable Fons, M Cara MANAGER WEALTH MANAGEMENT Unavailable Unavailable Fons, M Cara MANAGER WEALTH MANAGEMENT Unavailable Unavailable Fons, M Cara MANAGER WEALTH MANAGEMENT Unavailable Unavailable Fons, M Cara MANAGER WEALTH MANAGEMENT Unavailable Unavailable Fons, M Cara MANAGER WEALTH MANAGEMENT Unavailable Unavailable Fons, M Cara MANAGER WEALTH MANAGEMENT Unavailable Unavailable Fons, M Cara MANAGER WEALTH MANAGEMENT Unavailable Unavailable Fons, M Cara MANAGER WEALTH MANAGEMENT Unavailable Unavailable Heath Watson MD Unavailable Unavailable [...] is protected by Article 27-F of the [facility] Public Health law. If you continue you may have access to information: Regarding HIV / AIDS; Provided by facilities licensed or operated by the [facility] Office of Mental Health; or Provided by the [facility] Office for People With Developmental Disabilities. If such information is present, then the following [facility] mandated warning applies: This information has [...] law may result in a fine or correction sentence or both. A general authorization for the release of medical or other information is NOT sufficient authorization for further disc losure. Family History Family Member Name Family Member Gender Family Member Status Date o f Status Description Data Source(s) Unknown Unknown Problem MEDENT ([facility]) Unknown Female Problem MEDENT ([facility]) Unknown Female Problem MEDENT ([facility]) Unknown Female Problem MEDENT ([facility]) Unknown Female Problem MEDENT ([facility]) Encounters Encounter Providers Location Date Indications Data Source(s ) Unknown [address] [address] 01/15/2021 12:00:00 AM EST eCW1 ([facility]) Outpatient Attender: Cara MACKENZIE [email or web address] 12:00:00 AM EST - 01/08/2021 09:03:[address] [facility] [address] [facility] [address] 01/02/2021 12:00:00 AM EST eCW1 ([facility]) Outpatient [address] [facility] [address] 12/27/2020 12:00:00 AM EST eCW1 ([facility]) Outpatient Attender: John Paul Avendano/Alvin/Guillermo/R eindl 12/07/2020 03:15:00 PM EDT MEDENT ([facility] Outpatient [address] [facility] [address] 11/21/2020 12:00:00 AM EDT eCW1 ([facility]) Unknown [address] [facility] [address] 11/20/2020 12:00:00 AM EDT eCW1 ([facility]) Outpatient Attender: John Paul Avendnao/Alvin/Guillermo/R eindl 09/01/2020 10:30:00 AM EDT MEDENT ([facility] Out[place] [address] [facility] [address] 08/31/2020 12:00:00 AM EDT eCW1 ([facility]) Outpatient [address] [facility] [address] 06/26/2020 12:00:00 AM EDT eCW1 ([facility]) Outpatient Attender: John Paul Avendano/Alvin/Hiral veronica 02/24/2020 02:30:00 PM EST MEDENT ([facility] Outpatient [address] [facility] [address] 12/27/2019 12:00:00 AM EST eCW1 ([facility]) Outpatient [address] [facility] [address] 12/08/2019 12:00:00 AM EDT eCW1 ([facility]) Immunizations Vaccine Date Status Description Data Source(s) COVID-19 VACCINE Moderna 12/28/2020 12:00:00 AM EST completed [facility] Vaccine Series Complete: YESThis Data wa s Submitted to [facility] Via [facility]. Moderna #2 dose COVID-19 (given elsewhere) SARSCOV2 VA C 100MCG/0.5ML IM 05/08/2020 07:48:00 AM EDT completed eCW1 ([facility]) Moderna #2 dose COVID-19 (given elsewhere) SARSCOV2 VA C 100MCG/0.5ML IM 05/08/2020 07:48:00 AM EDT completed eCW1 ([facility]) Moderna #2 dose COVID-19 (given elsewhere) SARSCOV2 VA C 100MCG/0.5ML IM 05/08/2020 07:48:00 AM EDT completed eCW1 ([facility]) Moderna #2 dose COVID-19 (given elsewhere) SARSCOV2 VA C 100MCG/0.5ML IM 05/08/2020 07:48:00 AM EDT completed eCW1 ([facility]) Moderna #2 dose COVID-19(given elsewhere) SARSCOV2 VAC 100MCG/0.5ML IM 05/08/2020 07:48:00 AM EDT completed eCW1 ([facility]) Moderna #2 dose COVID-19(given elsewhere) SARSCOV2 VAC 100MCG/0.5ML IM 05/08/2020 07:48:00 AM EDT completed eCW1 ([facility]) COVID-19 VACCINE Moderna 05/08/2020 12:00:00 AM EDT completed [facility] Vaccine Series Complete: YESThis Data wa s Submitted to [facility] Via [facility]. Moderna #1 dose COVID-19 (given elsewhere) SARSCOV2 VA C 100MCG/0.5ML IM 04/13/2020 07:47:00 AM EST completed eCW1 ([facility]) Moderna #1 dose COVID-19 (given elsewhere) SARSCOV2 VA C 100MCG/0.5ML IM 04/13/2020 07:47:00 AM EST completed eCW1 ([facility]) Moderna #1 dose COVID-19 (given elsewhere) SARSCOV2 VA C 100MCG/0.5ML IM 04/13/2020 07:47:00 AM EST completed eCW1 ([facility]) Moderna #1 dose COVID-19 (given elsewhere) SARSCOV2 VA C 100MCG/0.5ML IM 04/13/2020 07:47:00 AM EST completed eCW1 ([facility]) Moderna #1 dose COVID-19(given elsewhere) SARSCOV2 VAC 100MCG/0.5ML IM 04/13/2020 07:47:00 AM EST completed eCW1 ([facility]) Moderna #1 dose COVID-19(given elsewhere) SARSCOV2 VAC 100MCG/0.5ML IM 04/13/2020 07:47:00 AM EST completed eCW1 ([facility]) influenza, recombinant, quadrIvalent,injectable, prese rvative free 12/08/2019 03:45:00 PM EDT completed eCW1 ([facility]) influenza, recombinant, quadrIvalent,injectable, prese rvative free 12/08/2019 03:45:00 PM EDT completed eCW1 ([facility]) influenza, recombinant, quadrIvalent,injectable, prese rvative free 12/08/2019 03:45:00 PM EDT completed eCW1 ([facility]) influenza, recombinant, quadrIvalent,injectable, prese rvative free 12/08/2019 03:45:00 PM EDT completed eCW1 ([facility]) influenza, recombinant, quadrIvalent,injectable, prese rvative free 12/08/2019 03:45:00 PM EDT completed eCW1 ([facility]) influenza, recombinant, quadrIvalent,injectable, prese rvative free 12/08/2019 03:45:00 PM EDT completed eCW1 ([facility]) influenza, recombinant, quadrIvalent,injectable, prese rvative free 12/08/2019 03:45:00 PM EDT completed eCW1 ([facility]) influenza, recombinant, quadrIvalent,injectable, prese rvative free 12/08/2019 03:45:00 PM EDT completed eCW1 ([facility]) influenza, recombinant, quadrIvalent,injectable, prese rvative free 12/08/2019 03:45:00 PM EDT completed eCW1 ([facility]) Medications Medication Brand Name Start Date Product Form Dose Route Admi nistrative Instructions Pharmacy Instructions Status Indications Reaction Description Data Source(s) Doxycycline Monohydrate 100 MG Oral Capsule Doxycycline [place] hydrate 100 MG 11/21/2020 12:00:00 AM EDT 1.0 {capsule} suspend ed Doxycycline Monohydrate 100 MG eCW1 ([facility]) benzonatate 100 MG Oral Capsule [Tessalon Perles] Chrissy marilyn Perles 100 MG Tessalon Perles 100 MG 11/21/2020 12:00:00 AM EDT 1.0 {capsule_as_nee ded} active Tessalon Perles 100 MG eCW1 ([facility]) benzonatate 100 MG Oral Capsule [Tessalon Perles] Chrissy marilyn Perles 100 MG Tessalon Perles 100 MG 11/21/2020 12:00:00 AM EDT 1.0 {capsule_as_nee ded} suspended Tessalon Perles 100 MG eCW1 ([facility]) Doxycycline Monohydrate 100 MG Oral Capsule Doxycycline [place] hydrate 100 MG 11/21/2020 12:00:00 AM EDT 1.0 {capsule} active Doxycycline Monohydrate 100 MG eCW1 ([facility]) Tessalon Perles 100 MG UNK 11/21/2020 12:00:00 AM EDT 1.0 {capsule_as_needed} suspended Tessalon Perles 100 MG eCW1 ([facility]) benzonatate 100 MG Oral Capsule [Tessalon Perles] Chrissy marilyn Perles 100 MG Tessalon Perles 100 MG 11/21/2020 12:00:00 AM EDT 1.0 {capsule_as_nee ded} active Tessalon Perles 100 MG eCW1 ([facility]) Doxycycline Monohydrate 100 MG Oral Capsule Doxycycline [place] hydrate 100 MG 11/21/2020 12:00:00 AM EDT 1.0 {capsule} suspend ed Doxycycline Monohydrate 100 MG eCW1 ([facility]) Doxycycline Monohydrate 100 MG Oral Capsule Doxycycline [place] hydrate 100 MG 11/21/2020 12:00:00 AM EDT 1.0 {capsule} suspend ed Doxycycline Monohydrate 100 MG eCW1 ([facility]) Doxycycline Monohydrate 100 MG Oral Capsule Doxycycline [place] hydrate 100 MG 11/21/2020 12:00:00 AM EDT 1.0 {capsule} active Doxycycline Monohydrate 100 MG eCW1 ([facility]) benzonatate 100 MG Oral Capsule [Tessalon Perles] Chrissy marilyn Perles 100 MG Tessalon Perles 100 MG 11/21/2020 12:00:00 AM EDT 1.0 {capsule_as_nee ded} suspended Tessalon Perles 100 MG eCW1 ([facility]) Insurance Providers Payer name Policy type / Coverage type Policy ID Covered democrat ID Covered democrat's relationship to sotomayor Policy Sotomayor Plan Information [facility] MEDICARE [id number] Anai [id number] MEDICARE BLUE PPO 306 [id number] SP [id number] [facility] [id number] S [id number] MEDICARE BLUE PPO 306 [id number] SP [id number] ANSI-Medicare Part B [id number] ANSI-Medicare Part B [id number] ANSI-Medicare Part B [id number] ANSI-Medicare Part B [id number] ANSI-Medicare Part B [id number] ANSI-Medicare Part B [id number] ANSI-Medicare Part B [id number] ANSI-Medicare Part B [id number] ANSI-Medicare Part B [id number] [facility] [id number] S [id number] ANSI-Medicare Part B [id number] ANSI-Medicare Part B [id number] ANSI-Medicare Part B [id number] [employer] [id number] S [id number] MEDICARE [place] [id number] S [id number] [facility] [facility] [id number] S [id number] BS Medicare Ppo Commercial [id number] Self [employer] BCBS P [id number] S [id number] MEDICARE BLUE PPO 306 [id number] SP [id number] MEDICARE BLUE PPO 306 [id number] SP [id number] [employer] BCBS [facility] [id number] S [id number] Medicare Blue Ppo Commercial [id number] Self [id number] Problems, Conditions, and Diagnoses Code Display Name Description Problem Type Effective Dates Data Source(s) I47.1 Supraventricular tachycardia Supraventricular tachycar malissa Diagnosis 01/08/2021 07:59:26 AM EST [facility] I47.1 [id number] Paroxysmal SVT (supraventricular tachycar malissa) Problem 01/02/2021 12:00:00 AM EST eCW1 ([facility]) H93.12 [id number] Tinnitus, left Problem 08/31/2020 12:00:0 0 AM EDT eCW1 ([facility]) Z85.828 [id number] Hx of basal cell carcinoma Problem 0 12:00:00 AM EST eCW1 ([facility]) Surgeries/Procedures Procedure Description Date Indications Data Source(s) Spirometry 12/07/2020 12:00:00 AM EDT EDENT ([facility], ) Plethysmography Determination Lung Volumes & Per Airway Resi st 12/07/2020 12:00:00 AM EDT MEDENT ([facility], ) DIFFUSING CAPACITY 12/07/2020 12:00:00 AM EDT MEDENT ([facility]) OFFICE OUTPATIENT VISIT 25 MINUTES 12/07/2020 12:00:00 AM EDT MEDENT ([facility]) Spirometry 09/01/2020 12:00:00 AM EDT M EDENT ([facility]) Plethysmography Determination Lung Volumes & Per Airway Resi st 09/01/2020 12:00:00 AM EDT MEDENT ([facility], ) DIFFUSING CAPACITY 09/01/2020 12:00:00 AM EDT MEDENT ([facility]) OFFICE OUTPATIENT VISIT 25 MINUTES 09/01/2020 12:00:00 AM EDT MEDENT ([facility]) Immunization: Flublok Quadrivalent (18 years & older) 0.5mL IM (Influenza) 12/08/2019 12:00:00 AM EDT eCW1 (Pending sale to [facility]) Results ID Date Data Source [id number] 01/17/2021 12:00:00 AM EST [facility] Name Value Range Interpretation Code Description Data Rebekah rce(s) Supporting Document(s) SARS-CoV2 Rapid Antigen Negative [facility] This lab was ordered by [facility] and reported by [facility]. ID Date Data Source MYRIAM CHEST 2 VIEW 11/21/2020 12:00:00 AM EDT eCW1 ([facility]) Name Value Range Interpretation Code Description Data Rebekah rce(s) Supporting Document(s) Laboratory studies (set) MYRIAM CHEST 2 VIEW eCW1 ([facility]) ID Date Data Source TSH 08/31/2020 12:00:00 AM EDT eCW1 ([facility]) Name Value Range Interpretation Code Description Data Rebekah rce(s) Supporting Document(s) 2.450 0.358-3.740 THYROID STIMULATING HORM ONE eCW1 ([facility]) ID Date Data Source MAGNESIUM LEVEL 08/31/2020 12:00:00 AM EDT eCW1 ([facility]) Name Value Range Interpretation Code Description Data Rebekah rce(s) Supporting Document(s) 2.5 1.8-2.4 MAGNESIUM LEVEL eCW1 ([facility]) ID Date Data Source Basic Metabolic Profile (BMP) 08/31/2020 12:00:00 AM EDT eCW 1 ([facility]) Name Value Range Interpretation Code Description Data Rebekah rce(s) Supporting Document(s) 83 70-100 GLUCOSE, FASTING eCW1 ([facility]) 15 7-18 BLOOD UREA NITROGEN eCW1 ([facility]) 4.6 3.5-5.1 POTASSIUM SERUM eCW1 ([facility]) > 60.0 >39 GLOMERULAR FILTRATION RATE eCW 1 ([facility]) 0.74 0.55-1.30 CREATININE FOR GFR eCW1 ([facility]) 142 136-145 SODIUM LEVEL eCW1 ([facility]) 109 98-107 CHLORIDE LEVEL eCW1 ([facility]) 8.9 8.8-10.2 CALCIUM LEVEL eCW1 ([facility]) 29 21-32 CARBON DIOXIDE LEVEL eCW1 ([facility]) ID Date Data Source FREE T4 08/31/2020 12:00:00 AM EDT eCW1 ([facility]) Name Value Range Interpretation Code Description Data Rebekah rce(s) Supporting Document(s) 0.89 0.76-1.46 FREE T4 eCW1 ([facility]) ID Date Data Source CBC with Differential 08/31/2020 12:00:00 AM EDT eCW1 ([facility]) Name Value Range Interpretation Code Description Data Rebekah rce(s) Supporting Document(s) 13.5 12.0-15.5 HEMOGLOBIN eCW1 ([facility]) 6.9 4.0-10.0 WHITE BLOOD COUNT eCW1 ([facility]) 4.87 4.00-5.40 RED BLOOD COUNT eCW1 ([facility]) 27.7 27.0-33.0 MEAN CORPUSCULAR HEMOGLOB IN eCW1 ([facility]) 43.4 36.0-47.0 HEMATOCRIT eCW1 ([facility] hospital) 89.1 80.0-96.0 MEAN CORPUSCULAR VOLUME e CW1 ([facility]) 56.8 36.0-66.0 NEUTROPHILS % eCW1 ([facility]) 31.1 32.0-36.5 MEAN CORPUSCULAR HGB CONC eCW1 ([facility]) 251 150-450 PLATELET COUNT, AUTOMATED eCW1 ([facility]) 13.2 11.5-14.5 RED CELL DISTRIBUTION WID TH eCW1 ([facility]) 8.0 2.0-8.0 MONO % eCW1 ([facility]) 2.0 0.0-3.0 EOS % eCW1 ([facility]) 32.1 24.0-44.0 LYMPH % eCW1 ([facility]) 1.0 0.0-1.0 BASO % eCW1 ([facility]) 2.2 1.5-5.0 LYMPH # eCW1 ([facility]) 3.9 1.5-8.5 NEUTROPHILS # eCW1 ([facility]) 0.6 0.0-0.8 MONO # eCW1 ([facility]) 0.1 0.0-0.2 BASO # eCW1 ([facility]) 0.1 0.0-0.5 EOS # eCW1 ([facility]) Procedure Social History Code Duration Value Status Description Data Source(s ) Smoking 01/02/2021 12:00:00 AM EST Former Smoker completed Former Smoker eCW1 ([facility]) Smoking 01/02/2021 12:00:00 AM EST Former Smoker completed Former Smoker eCW1 ([facility]) Smoking 12/27/2020 12:00:00 AM EST Former Smoker completed Former Smoker eCW1 ([facility]) Smoking 12/07/2020 12:00:00 AM EDT - 02/17/2001 12:00:00 AM EST Patient is a former smoker completed Patient is a former smoker MEDENT ([facility], ) Smoking 11/21/2020 12:00:00 AM EDT Former Smoker completed Former Smoker eCW1 ([facility]) Smoking 11/21/2020 12:00:00 AM EDT Former Smoker completed Former Smoker eCW1 ([facility]) Smoking 08/31/2020 12:00:00 AM EDT Former Smoker completed Former Smoker eCW1 ([facility]) Smoking 06/26/2020 12:00:00 AM EDT Former Smoker completed Former Smoker eCW1 ([facility]) Smoking 12/27/2019 12:00:00 AM EST Former Smoker completed Former Smoker eCW1 ([facility]) Vital Signs ID Date Data Source UNK Name Value Range Interpretation Code Description Data Source(s) Body weight 134.4 [lb_av] 134.4 [lb_av] eCW1 ([facility]) Body weight 60.96 kg 60.96 kg W1 ([facility]) Body height 63 [in_i] 63 [in_i] eCW1 ([facility]) Body mass index (BMI) [Ratio] 23.81 kg/m2 23.81 kg/m2 W1 ([facility]) Heart rate 93 /min 93 /min eCW1 ([facility]) Respiratory rate 17 /min 17 /min eCW1 ([facility]) Body temperature 98.4 [degF] 98.4 [degF] eCW1 ( [facility]) Systolic blood pressure 137 mm[Hg] 137 mm[Hg] e CW1 ([facility]) Diastolic blood pressure 81 mm[Hg] 81 mm[Hg] eCW1 ([facility]) Body weight 135.0 [lb_av] 135.0 [lb_av] eCW1 ([facility]) Body height 63 [in_i] 63 [in_i] eCW1 ([facility]) Body mass index (BMI) [Ratio] 23.91 kg/m2 23.91 kg/m2 eCW1 ([facility]) Systolic blood pressure 136 mm[Hg] 136 mm[Hg] e CW1 ([facility]) Diastolic blood pressure 76 mm[Hg] 76 mm[Hg] eCW1 ([facility]) Body weight 61.236 kg 61.236 kg MEDENT ([facility], ) Systolic blood pressure 120 mm[Hg] 120 mm[Hg] M EDENT ([facility]) Diastolic blood pressure 80 mm[Hg] 80 mm[Hg] MEDENT ([facility]) Body mass index (BMI) [Ratio] 23.9 kg/m2 23.9 k g/m2 [facility] Body surface area Derived from formula 1.64 m2 1.64 m2 [facility] ([facility]) Heart rate 77 /min 77 /min [facility] ([facility], ) Oxygen saturation in Arterial blood by Pulse oximetry 98 % 98 % [facility] ([facility], ) Body height 63 [in_i] 63 [in_i] MEDENT ([facility]) 5'3" Body weight 135.00 [lb_av] 135.00 [lb_av] MEDEN T ([facility], ) [place] body weight 115 [lb_av] 115 [lb_av] MEDEN T ([facility], ) Body weight 133 [lb_av] 133 [lb_av] eCW1 ([facility]) Body height 63 [in_i] 63 [in_i] eCW1 ([facility]) Body mass index (BMI) [Ratio] 23.56 kg/m2 23.56 kg/m2 [facility] ([facility]) Heart rate 76 /min 76 /min eCW1 ([facility]) Respiratory rate 18 /min 18 /min eCW1 ([facility]) Body temperature 98.2 [degF] 98.2 [degF] eCW1 ( [facility]) Systolic blood pressure 132 mm[Hg] 132 mm[Hg] e CW1 ([facility]) Diastolic blood pressure 85 mm[Hg] 85 mm[Hg] eCW1 ([facility]) Body height 63 [in_i] 63 [in_i] [facility] ([facility]) 5'3" Systolic blood pressure 128 mm[Hg] 128 mm[Hg] [facility] Diastolic blood pressure 82 mm[Hg] 82 mm[Hg] [facility] ([facility]) Heart rate 61 /min 61 /min [facility] ([facility]) Body weight 136.00 [lb_av] 136.00 [lb_av] [facility] Body mass index (BMI) [Ratio] 24.1 kg/m2 24.1 k g/m2 [facility] ([facility]) [place] body weight 115 [lb_av] 115 [lb_av] [facility] Body weight 61.690 kg 61.690 kg [facility] ([facility]) Oxygen saturation in Arterial blood by Pulse oximetry 98 % 98 % [facility] ([facility]) Body temperature 97.2 [degF] 97.2 [degF] [facility] ([facility]) Body surface area Derived from formula 1.64 m2 1.64 m2 [facility] ([facility]) Body weight 137 [lb_av] 137 [lb_av] eCW1 ([facility]) Body height 63 [in_i] 63 [in_i] eCW1 ([facility]) Body mass index (BMI) [Ratio] 24.27 kg/m2 24.27 kg/m2 eCW1 ([facility]) Heart rate 61 /min 61 /min eCW1 ([facility]) Respiratory rate 18 /min 18 /min eCW1 ([facility]) Body temperature 97.1 [degF] 97.1 [degF] eCW1 ( [facility]) Systolic blood pressure 135 mm[Hg] 135 mm[Hg] e CW1 ([facility]) Diastolic blood pressure 69 mm[Hg] 69 mm[Hg] eCW1 ([facility]) Body weight 144 [lb_av] 144 [lb_av] eCW1 ([facility]) Body height 63 [in_i] 63 [in_i] eCW1 ([facility]) Body mass index (BMI) [Ratio] 25.51 kg/m2 25.51 kg/m2 eCW1 ([facility]) Systolic blood pressure 136 mm[Hg] 136 mm[Hg] e CW1 ([facility]) Diastolic blood pressure 74 mm[Hg] 74 mm[Hg] eCW1 ([facility]) Oxygen saturation in Arterial blood by Pulse oximetry 98 % 98 % [facility], ) Room Air Body height 63 [in_i] 63 [in_i] MEDENT ([facility], ) 5'3" [place] body weight 115 [lb_av] 115 [lb_av] MEDEN T ([facility], ) Body height 63 [in_i] 63 [in_i] MEDENT ([facility], ) 5'3" [place] body weight 115 [lb_av] 115 [lb_av] MEDEN T ([facility], ) Systolic blood pressure 120 mm[Hg] 120 mm[Hg] M EDENT ([facility], ) Diastolic blood pressure 70 mm[Hg] 70 mm[Hg] MEDENT ([facility], ) Heart rate 70 /min 70 /min [facility] ([facility], ) Oxygen saturation in Arterial blood by Pulse oximetry 98 % 98 % [facility] ([facility], ) Room Air Body weight 139.2 [lb_av] 139.2 [lb_av] eCW1 ([facility]) Body height 63 [in_i] 63 [in_i] eCW1 ([facility]) Body mass index (BMI) [Ratio] 24.66 kg/m2 24.66 kg/m2 eCW1 ([facility]) Systolic blood pressure 138 mm[Hg] 138 mm[Hg] e CW1 ([facility]) Diastolic blood pressure 78 mm[Hg] 78 mm[Hg] eCW1 ([facility]) Patient Treatment Plan of Care Planned Activity Planned Date Details Description Data Source (s) Doxycycline Monohydrate 100 MG Oral Capsule 11/21/2020 12:00:00 AM EDT eCW1 ([facility]) benzonatate 100 MG Oral Capsule [Tessalon Perles] 11/21/2020 12: 00:00 AM EDT eCW1 ([facility]) Doxycycline Monohydrate 100 MG Oral Capsule 11/21/2020 12:00:00 AM EDT eCW1 ([facility]) benzonatate 100 MG Oral Capsule [Tessalon Perles] 11/21/2020 12: 00:00 AM EDT eCW1 ([facility])
[2021-01-20 13:51] LABS: ALBUMIN 3.2 GM/DL (3.2-5.2); BILIRUBIN,DIRECT 0.1 MG/DL (0.0-0.2); BILIRUBIN,TOTAL 0.5 MG/DL (0.2-1.0); CALCIUM LEVEL 9.2 MG/DL (8.8-10.2); CREATININE FOR GFR 0.98 MG/DL (0.55-1.30); GLOMERULAR FILTRATION RATE 58.7 (>39); POTASSIUM SERUM 3.8 MEQ/L (3.5-5.1); THYROID STIMULATING HORMONE 3.52 uIU/ML (0.358-3.740); TOTAL PROTEIN 7.8 GM/DL (6.4-8.2)
--- NOTE | 2021-01-20 14:06 | REP ---
INDICATION: CHEST PAIN. COMPARISON: Comparison chest x-ray November 21, 2020. TECHNIQUE: Portable upright AP chest radiograph. FINDINGS: Opacity in the left lung base there is hazy peripherally. Interstitial markings are diffusely prominent. No pleural effusion is seen. Pulmonary vasculature is not increased. There are granulomatous lymph node calcifications bilaterally in the hilar regions. No acute bony abnormality. IMPRESSION: Hazy opacity in the left base suggestive of an infiltrate. Chronic interstitial fibrosis pattern. Otherwise no acute disease. <Electronically signed by Michele Aquino > 01/20/21 [id number]
[2021-01-20 15:13] VITALS: BP 116/73
--- NOTE | 2021-01-20 16:39 | ECGEPIP ---
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
[2021-01-20] MEDS ORDERED: DOXY-443 PO ×2 (16:40→16:42)
== END 2021-01-20 15:20 | disposition home or self-care (01) ==
LOC: M ED 12:28
DX: I47.1 Supraventricular tachycardia (principal); I10 Essential (primary) hypertension; E78.5 Hyperlipidemia, unspecified; Z79.899 Other long term (current) drug therapy; Z88.5 Allergy status to narcotic agent; Z88.8 Allergy status to other drugs, medicaments and biological substances; Z87.891 Personal history of nicotine dependence
CPT/HCPCS: 71045; 80048; 80076; 84443; 84484; 85025; 93005; 93041; 94760; 96374; 99285; J0153

== ENCOUNTER → 2021-03-15 | Outpatient (REF) | payer MEDICARE ==
[~2021-03-15] MED LIST changes: +DOXY-443 PO; -LIDOCAINE 1% MDV 20ML VIAL As Ordered ONE; +METO1TAB32 PO
[2021-03-15 15:03] LABS: FREE T4 0.96 NG/DL (0.76-1.46); FREE THYROXINE INDEX 2.4 % (1.3-4.8); THYROID STIMULATING HORMONE 1.77 uIU/ML (0.358-3.740); THYROXINE (T4) 9.4 UG/DL (4.5-12.0)
[2021-03-16 12:23] LABS: FOLATE 8.5 NG/ML
== END ==
LOC: M LABDRAWC 11:19
PROVIDERS: ATTEND Psychiatry & Neurology Neurology
DX: E07.9 Disorder of thyroid, unspecified (principal); D51.9 Vitamin B12 deficiency anemia, unspecified

== ENCOUNTER → 2021-04-06 | Outpatient (REF) | payer MEDICARE | LOC: M SFHCCLAY 10:38 | PROVIDERS: ATTEND Physician Assistant | DX: R30.0 Dysuria (principal) ==

== ENCOUNTER → 2021-08-29 | Outpatient (CLI) | payer MEDICARE | LOC: M PLAIMG 10:36 | PROVIDERS: ATTEND Internal Medicine Pulmonary Disease | DX: R91.1 Solitary pulmonary nodule (principal) ==

== ENCOUNTER → 2022-05-27 | Outpatient (CLI) | payer MEDICARE | LOC: M CLY 10:20 | PROVIDERS: ATTEND Nurse Practitioner Family | DX: M19.011 Primary osteoarthritis, right shoulder (principal) ==

== ENCOUNTER → 2022-08-08 | Outpatient (REF) | payer MEDICARE ==
[2022-08-08 11:20] LABS: ALBUMIN 3.2 G/DL (3.2-5.2); ALKALINE PHOSPHATASE 108 U/L (46-116); ALT/SGPT 12 U/L (7.0-40); AST/SGOT 18 U/L (<34); BILIRUBIN,TOTAL 0.7 MG/DL (0.3-1.2); BLOOD UREA NITROGEN 18 MG/DL (9-23); CALCIUM LEVEL 9.3 MG/DL (8.3-10.6); CARBON DIOXIDE LEVEL 28 MMOL/L (20-31); CHLORIDE LEVEL 109 MMOL/L (98-107); CHOLESTEROL LEVEL 211 MG/DL (<200); CHOLESTEROL RISK RATIO 3.12 (<5); CREATININE FOR GFR 0.87 MG/DL (0.55-1.30); GLOMERULAR FILTRATION RATE > 60.0 (>39); GLUCOSE, FASTING 86 MG/DL (74-106); HDL CHOLESTEROL 67.6 MG/DL (>40); LDL CHOLESTEROL 130.4 MG/DL (<100); NON-HDL-C 143.4 MG/DL; POTASSIUM SERUM 3.8 MMOL/L (3.5-5.1); SODIUM LEVEL 140 MMOL/L (136-145); TOTAL PROTEIN 6.9 G/DL (5.7-8.2); TRIGLYCERIDES LEVEL 65 MG/DL (<150)
[2022-08-08 11:22] LABS: FREE T4 0.83 NG/DL (0.89-1.76)
[2022-08-08 11:23] LABS: THYROID STIMULATING HORMONE 3.352 uIU/ML (0.55-4.78); TOTAL 25(OH) VITAMIN D 42.8 NG/ML (20.0-100.0)
[2022-08-08 11:43] LABS: HEMATOCRIT 39.4 % (36.0-47.0); HEMOGLOBIN 12.3 g/dl (12.0-15.5); MEAN CORPUSCULAR HEMOGLOBIN 27.6 pg (27.0-33.0); MEAN CORPUSCULAR HGB CONC 31.2 g/dl (32.0-36.5); MEAN CORPUSCULAR VOLUME 88.3 fl (80.0-96.0); PLATELET COUNT, AUTOMATED 230 10^3/uL (150-450); RED BLOOD COUNT 4.46 10^6/uL (4.00-5.40); WHITE BLOOD COUNT 6.2 10^3/uL (4.0-10.0)
[2022-08-08 11:58] LABS: HEMOGLOBIN A1c 5.2 % (4.0-6.0)
== END ==
LOC: M SFHCCLAY 08:36
PROVIDERS: ATTEND Nurse Practitioner Family
DX: I47.1 Supraventricular tachycardia (principal); Z83.3 Family history of diabetes mellitus; E55.9 Vitamin D deficiency, unspecified; Z79.899 Other long term (current) drug therapy

== ENCOUNTER → 2022-12-26 | Outpatient (REF) | payer MEDICARE ==
[2022-12-26 19:26] LABS: ALBUMIN 3.4 G/DL (3.2-5.2); ALKALINE PHOSPHATASE 112 U/L (46-116); ALT/SGPT 12 U/L (7.0-40); AST/SGOT 22 U/L (<34); BILIRUBIN,TOTAL 0.4 MG/DL (0.3-1.2); BLOOD UREA NITROGEN 17 MG/DL (9-23); CALCIUM LEVEL 9.1 MG/DL (8.3-10.6); CARBON DIOXIDE LEVEL 30 MMOL/L (20-31); CHLORIDE LEVEL 104 MMOL/L (98-107); CHOLESTEROL LEVEL 238 MG/DL (<200); CHOLESTEROL RISK RATIO 3.25 (<5); CREATININE FOR GFR 0.81 MG/DL (0.55-1.30); GLOMERULAR FILTRATION RATE > 60.0 (>39); GLUCOSE, FASTING 82 MG/DL (74-106); HDL CHOLESTEROL 73.1 MG/DL (>40); LDL CHOLESTEROL 140.5 MG/DL (<100); NON-HDL-C 164.9 MG/DL; POTASSIUM SERUM 4.6 MMOL/L (3.5-5.1); SODIUM LEVEL 140 MMOL/L (136-145); TOTAL PROTEIN 7.4 G/DL (5.7-8.2); TRIGLYCERIDES LEVEL 122 MG/DL (<150)
== END ==
LOC: M SFHCCLAY 14:17
PROVIDERS: ATTEND Nurse Practitioner Family
DX: J84.10 Pulmonary fibrosis, unspecified (principal); G25.81 Restless legs syndrome; Z79.899 Other long term (current) drug therapy

== ENCOUNTER → 2023-04-08 | Outpatient (CLI) | payer MEDICARE | LOC: M RAD 09:17 | PROVIDERS: ATTEND Internal Medicine Pulmonary Disease | DX: J84.112 Idiopathic pulmonary fibrosis (principal) ==

== ENCOUNTER 2023-08-26 17:38 | Emergency (ER) | payer OTHER, MEDICARE ==
[~2023-08-26] VITALS: Ht 160 cm; Wt 50.3 kg
[~2023-08-26 17:38] MED LIST changes: +DOXY-323 PO; -DOXY-443 PO
[2023-08-26] MEDS ORDERED: PROP20TA72 (17:48)
[2023-08-26] MEDS ORDERED: PRED10TA2 (17:48)
[2023-08-26] MEDS ORDERED: ISOVUE-370 76% 100ML VIAL As Ordered ONE (19:24)
[2023-08-26 19:27] LABS: BASO # 0.1 10^3/uL (0.0-0.2); BASO % 0.7 % (0.0-1.0); EOS # 0.3 10^3/uL (0.0-0.5); EOS % 2.9 % (0.0-3.0); HEMATOCRIT 45.9 % (36.0-47.0); HEMOGLOBIN 14.6 g/dl (12.0-15.5); LYMPH # 2.8 10^3/uL (1.5-5.0); MEAN CORPUSCULAR HEMOGLOBIN 29.5 pg (27.0-33.0); MEAN CORPUSCULAR HGB CONC 31.8 g/dl (32.0-36.5); MEAN CORPUSCULAR VOLUME 92.7 fl (80.0-96.0); MONO # 0.8 10^3/uL (0.0-0.8); MONO % 7.9 % (2.0-8.0); NEUTROPHILS # 5.7 10^3/uL (1.5-8.5); NEUTROPHILS % 58.7 % (36.0-66.0); PLATELET COUNT, AUTOMATED 234 10^3/uL (150-450); RED BLOOD COUNT 4.95 10^6/uL (4.00-5.40); WHITE BLOOD COUNT 9.8 10^3/uL (4.0-10.0)
[2023-08-26 19:44] LABS: INR 0.98; PROTHROMBIN TIME 12.7 SECONDS (12.5-14.5)
[2023-08-26 19:51] LABS: ALBUMIN 3.3 G/DL (3.2-5.2); BILIRUBIN,DIRECT 0.2 MG/DL (<0.4); BILIRUBIN,TOTAL 0.8 MG/DL (0.3-1.2); TOTAL PROTEIN 7.1 G/DL (5.7-8.2)
[2023-08-26 20:45] VITALS: BP 129/65; TEMP 97.4; O2SAT 90
== END 2023-08-26 20:59 | disposition home or self-care (01) ==
LOC: M ED 17:38
DX: S30.1XXA Contusion of abdominal wall, initial encounter (principal); M25.511 Pain in right shoulder; Y92.9 Unspecified place or not applicable; Y93.9 Activity, unspecified; Y99.9 Unspecified external cause status; V40.5XXA Car driver injured in collision with pedestrian or animal in traffic accident, initial encounter; Z88.5 Allergy status to narcotic agent; Z88.8 Allergy status to other drugs, medicaments and biological substances; Z79.52 Long term (current) use of systemic steroids
CPT/HCPCS: 36415; 71046; 73010; 73030; 74177; 80047; 80076; 85025; 85610; 85730; 86850; 86900; 86901; 99284; Q9967

== ENCOUNTER → 2023-10-14 | Outpatient (REF) | payer MEDICARE ==
[~2023-10-14] MED LIST changes: +PRED10TA2; +PROP20TA72
[2023-10-14 13:19] LABS: BLOOD UREA NITROGEN 17 MG/DL (9-23); CALCIUM LEVEL 8.9 MG/DL (8.3-10.6); CARBON DIOXIDE LEVEL 30 MMOL/L (20-31); CHLORIDE LEVEL 109 MMOL/L (98-107); CREATININE FOR GFR 0.88 MG/DL (0.55-1.30); GLOMERULAR FILTRATION RATE > 60.0 (>39); GLUCOSE, FASTING 82 MG/DL (74-106); SODIUM LEVEL 144 MMOL/L (136-145)
== END ==
LOC: M SFHCCLAY 07:50
PROVIDERS: ATTEND Physician Assistant
DX: N28.1 Cyst of kidney, acquired (principal)

== ENCOUNTER → 2023-10-21 | Outpatient (CLI) | payer MEDICARE ==
[~2023-10-21] MED LIST changes: +ISOVUE-370 76% 100ML VIAL ONE
== END ==
LOC: M PLAIMG 12:19
PROVIDERS: ATTEND Physician Assistant
DX: N28.1 Cyst of kidney, acquired (principal); J84.9 Interstitial pulmonary disease, unspecified
CPT/HCPCS: 74170; Q9967

== ENCOUNTER → 2023-10-23 | Outpatient (REF) | payer MEDICARE ==
[~2023-10-23] MED LIST changes: -ISOVUE-370 76% 100ML VIAL ONE
== END ==
LOC: M SFHCDERM 18:13
PROVIDERS: ATTEND Physician Assistant
DX: L57.0 Actinic keratosis (principal)

== ENCOUNTER → 2023-10-29 | Outpatient (CLI) | payer MEDICARE | LOC: M PLAIMG 08:12 | PROVIDERS: ATTEND Internal Medicine Pulmonary Disease | DX: R91.8 Other nonspecific abnormal finding of lung field (principal); I70.0 Atherosclerosis of aorta; I25.10 Atherosclerotic heart disease of native coronary artery without angina pectoris; R59.0 Localized enlarged lymph nodes; J47.9 Bronchiectasis, uncomplicated; N20.0 Calculus of kidney; N28.1 Cyst of kidney, acquired; J44.9 Chronic obstructive pulmonary disease, unspecified; J84.9 Interstitial pulmonary disease, unspecified ==

== ENCOUNTER → 2023-12-05 | Outpatient (REF) | payer MEDICARE ==
[~2023-12-05] MED LIST changes: -DOXY-323 PO; +DOXY-441 PO
== END ==
LOC: M LAB REF 16:24
PROVIDERS: ATTEND Nurse Practitioner Family
DX: R30.0 Dysuria (principal)

== ENCOUNTER → 2024-01-06 | Outpatient (CLI) | payer MEDICARE | LOC: M CLY 11:59 | PROVIDERS: ATTEND Nurse Practitioner Family | DX: J22 Unspecified acute lower respiratory infection (principal) ==

== ENCOUNTER → 2024-01-06 | Outpatient (REF) | payer MEDICARE | LOC: M SFHCCLAY 16:47 | PROVIDERS: ATTEND Nurse Practitioner Family | DX: R30.0 Dysuria (principal); J22 Unspecified acute lower respiratory infection ==

== ENCOUNTER → 2024-01-14 | Outpatient (REF) | payer MEDICARE | LOC: M SFHCCLAY 13:41 | PROVIDERS: ATTEND Nurse Practitioner Family | DX: R30.0 Dysuria (principal) ==

== ENCOUNTER → 2024-01-20 | Outpatient (REF) | payer MEDICARE | LOC: M SFHCCLAY 16:34 | PROVIDERS: ATTEND Nurse Practitioner Family | DX: R10.2 Pelvic and perineal pain (principal) ==

== ENCOUNTER → 2024-02-03 | Outpatient (REF) | payer MEDICARE ==
[2024-02-03 11:40] LABS: CHOLESTEROL RISK RATIO 3.5 (<5); HDL CHOLESTEROL 69.7 MG/DL (>40); LDL CHOLESTEROL 144.9 MG/DL (<100); NON-HDL-C 174.3 MG/DL
== END ==
LOC: M LABDRAWC 11:16
PROVIDERS: ATTEND Nurse Practitioner Acute Care
DX: I25.10 Atherosclerotic heart disease of native coronary artery without angina pectoris (principal)

== ENCOUNTER → 2024-03-24 | Outpatient (REF) | payer MEDICARE ==
[2024-03-24 19:16] LABS: ALBUMIN 3.1 G/DL (3.2-5.2); ALKALINE PHOSPHATASE 101 U/L (35-104); ALT/SGPT 11 U/L (7.0-40); AST/SGOT 19 U/L (<34); BILIRUBIN,TOTAL 0.7 MG/DL (0.3-1.2); BLOOD UREA NITROGEN 21 MG/DL (9-23); CALCIUM LEVEL 9.3 MG/DL (8.3-10.6); CARBON DIOXIDE LEVEL 30 MMOL/L (20-31); CHLORIDE LEVEL 108 MMOL/L (98-107); CHOLESTEROL LEVEL 236 MG/DL (<200); CHOLESTEROL RISK RATIO 3.37 (<5); CREATININE FOR GFR 0.83 MG/DL (0.55-1.30); GLOMERULAR FILTRATION RATE > 60.0 (>39); GLUCOSE, FASTING 81 MG/DL (74-106); HDL CHOLESTEROL 69.9 MG/DL (>40); LDL CHOLESTEROL 138.5 MG/DL (<100); MAGNESIUM LEVEL 2.1 MG/DL (1.8-2.4); NON-HDL-C 166.1 MG/DL; POTASSIUM SERUM 4.4 MMOL/L (3.5-5.1); SODIUM LEVEL 145 MMOL/L (136-145); TOTAL PROTEIN 7.3 G/DL (5.7-8.2); TRIGLYCERIDES LEVEL 138 MG/DL (<150)
[2024-03-24 19:18] LABS: FREE T4 1.24 NG/DL (0.89-1.76); THYROID STIMULATING HORMONE 3.553 uIU/ML (0.55-4.78)
[2024-03-24 19:48] LABS: HEMOGLOBIN A1c 5.2 % (4.0-6.0)
== END ==
LOC: M SFHCCLAY 09:49
PROVIDERS: ATTEND Nurse Practitioner Family
DX: J84.10 Pulmonary fibrosis, unspecified (principal); R10.2 Pelvic and perineal pain; E55.9 Vitamin D deficiency, unspecified; I47.10 Supraventricular tachycardia, unspecified; R93.89 Abnormal findings on diagnostic imaging of other specified body structures; R25.1 Tremor, unspecified; Z13.1 Encounter for screening for diabetes mellitus; Z13.220 Encounter for screening for lipoid disorders

== ENCOUNTER → 2024-03-24 | Outpatient (REF) | payer MEDICARE ==
[2024-03-24 18:59] LABS: ALBUMIN 3.2 G/DL (3.2-5.2); BILIRUBIN,DIRECT 0.2 MG/DL (<0.4); BILIRUBIN,TOTAL 0.8 MG/DL (0.3-1.2); CHOLESTEROL RISK RATIO 3.42 (<5); HDL CHOLESTEROL 70.6 MG/DL (>40); NON-HDL-C 171.4 MG/DL; TOTAL PROTEIN 7.3 G/DL (5.7-8.2)
== END ==
LOC: M LABDRAWC 16:31
PROVIDERS: ATTEND Nurse Practitioner Acute Care
DX: I25.10 Atherosclerotic heart disease of native coronary artery without angina pectoris (principal)

== ENCOUNTER → 2024-06-28 | Outpatient (CLI) | payer MEDICARE | LOC: M CLY 13:03 | PROVIDERS: ATTEND Internal Medicine Pulmonary Disease | DX: J84.9 Interstitial pulmonary disease, unspecified (principal) ==

== ENCOUNTER → 2024-09-21 | Outpatient (REF) | payer MEDICARE ==
[2024-09-21 18:13] LABS: BASO # 0.1 10^3/uL (0.0-0.2); BASO % 0.7 % (0.0-1.0); EOS # 0.2 10^3/uL (0.0-0.5); EOS % 1.4 % (0.0-3.0); LYMPH # 3.9 10^3/uL (1.5-5.0); LYMPH % 31.2 % (24.0-44.0); MONO # 0.7 10^3/uL (0.0-0.8); MONO % 5.9 % (2.0-8.0); NEUTROPHILS # 7.5 10^3/uL (1.5-8.5); NEUTROPHILS % 59.8 % (36.0-66.0); PLATELET COUNT, AUTOMATED 274 10^3/uL (150-450)
== END ==
LOC: M LABDRAWC 17:51
PROVIDERS: ATTEND Internal Medicine Critical Care Medicine
DX: I50.9 Heart failure, unspecified (principal)

== ENCOUNTER 2024-10-10 12:17 | Emergency (ER) | payer MEDICARE ==
[~2024-10-10] VITALS: Ht 160 cm; Wt 61.0 kg
[~2024-10-10 12:17] MED LIST changes: -PRED10TA2; +PRED10TA2 PO
[2024-10-10 13:10] LABS: BASO # 0.1 10^3/uL (0.0-0.2); BASO % 0.4 % (0.0-1.0); EOS # 0.1 10^3/uL (0.0-0.5); EOS % 0.6 % (0.0-3.0); LYMPH # 1.1 10^3/uL (1.5-5.0); LYMPH % 7.8 % (24.0-44.0); MONO # 0.4 10^3/uL (0.0-0.8); MONO % 3.2 % (2.0-8.0); NEUTROPHILS # 12.1 10^3/uL (1.5-8.5); NEUTROPHILS % 87.0 % (36.0-66.0); PLATELET COUNT, AUTOMATED 239 10^3/uL (150-450)
[2024-10-10 13:39] LABS: ALT/SGPT 18.0 U/L (7.0-40); AST/SGOT 25.0 U/L (<34); CALCIUM LEVEL 8.8 MG/DL (8.3-10.6); CARBON DIOXIDE LEVEL 28.0 MMOL/L (20-31); CHLORIDE LEVEL 106.0 MMOL/L (98-107); CREATININE FOR GFR 0.94 MG/DL (0.55-1.30); GLOMERULAR FILTRATION RATE 61.3 (>32); POTASSIUM SERUM 4.1 MMOL/L (3.5-5.1); SODIUM LEVEL 145.0 MMOL/L (136-145)
[2024-10-10] MEDS ORDERED: ISOVUE-370 76% 100 ML VIAL As Ordered ONE (14:01)
[2024-10-10] MEDS ORDERED: ASPI-737 PO (14:29)
[2024-10-10 15:14] LABS: INR 0.99
[2024-10-10] MEDS ORDERED: ELIQ5TAB PO (15:59)
[2024-10-10 16:11] VITALS: BP 149/69; TEMP 97.4; O2SAT 99
[2024-10-10] MEDS: APIXABAN 5 MG TAB PO ONE (16:16)
== END 2024-10-10 16:25 | disposition home or self-care (01) ==
LOC: M ED 12:17
DX: I82.621 Acute embolism and thrombosis of deep veins of right upper extremity (principal); N28.1 Cyst of kidney, acquired; D73.89 Other diseases of spleen; Z86.79 Personal history of other diseases of the circulatory system; Z88.5 Allergy status to narcotic agent; Z79.899 Other long term (current) drug therapy; Z79.82 Long term (current) use of aspirin; Z79.51 Long term (current) use of inhaled steroids
CPT/HCPCS: 71045; 71275; 73206; 80048; 80076; 83690; 85025; 85610; 85730; 93005; 93041; 93971; 94760; 99285; Q9967

== ENCOUNTER 2024-10-17 11:29 | Observation (INO) | payer MEDICARE ==
[~2024-10-17] VITALS: Ht 160 cm; Wt 56.6 kg
[~2024-10-17 11:29] MED LIST changes: +ASPI-737 PO; +ELIQ5TAB PO
[2024-10-17 12:27] LABS: BASO # 0.1 10^3/uL (0.0-0.2); BASO % 0.4 % (0.0-1.0); EOS # 0.1 10^3/uL (0.0-0.5); EOS % 0.3 % (0.0-3.0); LYMPH # 1.2 10^3/uL (1.5-5.0); LYMPH % 6.4 % (24.0-44.0); MONO # 0.6 10^3/uL (0.0-0.8); MONO % 3.3 % (2.0-8.0); NEUTROPHILS # 16.0 10^3/uL (1.5-8.5); NEUTROPHILS % 88.8 % (36.0-66.0); PLATELET COUNT, AUTOMATED 232 10^3/uL (150-450)
[2024-10-17 12:42] LABS: INR 1.44
[2024-10-17] MEDS ORDERED: ELIQ5TAB PO (13:13)
[2024-10-17] MEDS ORDERED: ASPI81TA26 PO (13:13)
[2024-10-17] MEDS ORDERED: HOME MED LIST COMPLETE! XX SCH (13:15)
[2024-10-17 13:30] LABS: ALT/SGPT 22.0 U/L (7.0-40); AST/SGOT 29.0 U/L (<34); CALCIUM LEVEL 8.8 MG/DL (8.3-10.6); CARBON DIOXIDE LEVEL 28.0 MMOL/L (20-31); CHLORIDE LEVEL 106.0 MMOL/L (98-107); CK-MB VALUE MASS 1.8 NG/ML (<3.6); CREATININE FOR GFR 1.01 MG/DL (0.55-1.30); GLOMERULAR FILTRATION RATE 56.3 (>32); POTASSIUM SERUM 4.0 MMOL/L (3.5-5.1); SODIUM LEVEL 145.0 MMOL/L (136-145)
[2024-10-17 13:34] LABS: THYROXINE (T4) 5.8 UG/DL (4.5-10.9)
[2024-10-17 13:52] LABS: VENOUS BASE EXCESS 3.0 (-2.0-2.0); VENOUS HCO3 29.3 MMOL/L (23.0-27.0); VENOUS O2 SATURATION 55.2 % (60.0-80.0); VENOUS PARTIAL PRESSURE CO2 51.6 mmHg (38.0-50.0); VENOUS PARTIAL PRESSURE O2 29.4 mmHg (30.0-50.0); VENOUS PH 7.372 UNITS (7.330-7.430); VENOUS STANDARD HCO3 26.0 MMOL/L; VENOUS TOTAL CO2 30.9 MMOL/L (24.0-28.0)
[2024-10-17] MEDS ORDERED: ISOVUE-370 76% 100 ML VIAL As Ordered ONE (13:53)
[2024-10-17 13:54] LABS: BASO # 0.1 10^3/uL (0.0-0.2); BASO % 0.4 % (0.0-1.0); EOS # 0.0 10^3/uL (0.0-0.5); EOS % 0.1 % (0.0-3.0); LYMPH # 1.0 10^3/uL (1.5-5.0); LYMPH % 6.4 % (24.0-44.0); MONO # 0.3 10^3/uL (0.0-0.8); MONO % 2.2 % (2.0-8.0); NEUTROPHILS # 13.7 10^3/uL (1.5-8.5); NEUTROPHILS % 90.2 % (36.0-66.0); PLATELET COUNT, AUTOMATED 238 10^3/uL (150-450)
[2024-10-17 13:58] LABS: CPK CREATINE PHOSPHOKINASE 24.0 U/L (34-145); MB/CK RELATIVE INDEX 7.5 (< OR =4)
[2024-10-17 14:25] LABS: CALCIUM LEVEL 8.9 MG/DL (8.3-10.6); CARBON DIOXIDE LEVEL 30.0 MMOL/L (20-31); CHLORIDE LEVEL 108.0 MMOL/L (98-107); CK-MB VALUE MASS 1.5 NG/ML (<3.6); CREATININE FOR GFR 0.99 MG/DL (0.55-1.30); GLOMERULAR FILTRATION RATE 57.6 (>32); POTASSIUM SERUM 4.5 MMOL/L (3.5-5.1); SODIUM LEVEL 146.0 MMOL/L (136-145)
[2024-10-17 14:26] LABS: CPK CREATINE PHOSPHOKINASE 28.0 U/L (34-145); MB/CK RELATIVE INDEX 5.35 (< OR =4)
[2024-10-17] MEDS: CEFEPIME HCL 2 GM in DEXTROSE 5% (D5W) ADV/MINI-BAG 50 ML IV ONE (14:26)
[2024-10-17] MEDS: DOXYCYCLINE HYCLATE 100 MG in DEXTROSE 5% (D5W) MINI-BAG PLU 100 ML IV ONE (15:08)
[2024-10-17] MEDS ORDERED: ACETAMINOPHEN 325 MG TAB PO PRN (16:05)
[2024-10-17] MEDS ORDERED: MOM 30 ML SUSPENSION UDC PO PRN (16:05)
[2024-10-17] MEDS ORDERED: MAALOX 30 ML SUSP *UDC PO PRN (16:05)
[2024-10-17 16:55] VITALS: BP 138/98; TEMP 97.4; O2SAT 91
[2024-10-17 18:00] VITALS: O2SAT 97
[2024-10-17 19:00] VITALS: O2SAT 96
[2024-10-17 19:11] VITALS: BP 133/68; TEMP 97.9; O2SAT 96
[2024-10-17] MEDS: cefTRIAXone SOD 2 GM in DEXTROSE 5% (D5W) ADV/MINI-BAG 50 ML IV SCH (20:06)
[2024-10-17 22:53] VITALS: BP 112/62; TEMP 97.5; O2SAT 95
[2024-10-18] VITALS (12 sets, daily range): BP systolic 110–138; BP diastolic 58–78; TEMP 97.2–98.6; O2SAT 94–99
[2024-10-18 06:34] LABS: CALCIUM LEVEL 8.6 MG/DL (8.3-10.6); CARBON DIOXIDE LEVEL 27.0 MMOL/L (20-31); CHLORIDE LEVEL 109.0 MMOL/L (98-107); CREATININE FOR GFR 0.94 MG/DL (0.55-1.30); GLOMERULAR FILTRATION RATE 61.3 (>32); MAGNESIUM LEVEL 2.1 MG/DL (1.8-2.4); POTASSIUM SERUM 4.2 MMOL/L (3.5-5.1); SODIUM LEVEL 146.0 MMOL/L (136-145)
[2024-10-18] MEDS: AZITHROMYCIN 250 MG TABLET PO SCH (09:11)
[2024-10-18] MEDS: predniSONE 10 MG TAB PO SCH (09:11)
[2024-10-19 03:04] VITALS: BP 114/58; TEMP 97.5; O2SAT 98
[2024-10-19 06:10] LABS: CALCIUM LEVEL 8.7 MG/DL (8.3-10.6); CARBON DIOXIDE LEVEL 27.0 MMOL/L (20-31); CHLORIDE LEVEL 109.0 MMOL/L (98-107); CREATININE FOR GFR 0.78 MG/DL (0.55-1.30); GLOMERULAR FILTRATION RATE 76.7 (>32); MAGNESIUM LEVEL 2.0 MG/DL (1.8-2.4); POTASSIUM SERUM 3.8 MMOL/L (3.5-5.1); SODIUM LEVEL 144.0 MMOL/L (136-145)
[2024-10-19 07:42] VITALS: BP 124/72; TEMP 98.2; O2SAT 97
[2024-10-19 09:00] VITALS: O2SAT 95
[2024-10-19 10:00] VITALS: O2SAT 95
[2024-10-19] MEDS ORDERED: AZIT500T5 PO (11:07)
[2024-10-19] MEDS ORDERED: CEFD1CAP9 PO (11:07)
[2024-10-19] MEDS ORDERED: ELIQ5TAB PO (11:07)
[2024-10-19 11:34] VITALS: BP 136/77; TEMP 98.6; O2SAT 97
[2024-10-23 23:53] LABS: MYCOPLASMA PNEUMONIAE IGG 1.63 (<=0.90); MYCOPLASMA PNEUMONIAE IGM 79.0 U/mL (<770)
== END 2024-10-19 13:05 | disposition home or self-care (01) ==
LOC: M ED 11:29 → INTOOBSV 16:02 → M ED INP 16:02 → M PCU 17:01
PROVIDERS: ADMIT Student in an Organized Health Care Education/Training Program; ATTEND Student in an Organized Health Care Education/Training Program
DX: R04.2 Hemoptysis (principal); I27.20 Pulmonary hypertension, unspecified; J84.9 Interstitial pulmonary disease, unspecified; J96.11 Chronic respiratory failure with hypoxia; Z79.52 Long term (current) use of systemic steroids; J43.9 Emphysema, unspecified; Z99.81 Dependence on supplemental oxygen; I82.621 Acute embolism and thrombosis of deep veins of right upper extremity; R03.0 Elevated blood-pressure reading, without diagnosis of hypertension; G25.0 Essential tremor; I47.10 Supraventricular tachycardia, unspecified; Z98.61 Coronary angioplasty status; Z98.890 Other specified postprocedural states; Z87.891 Personal history of nicotine dependence; Z88.5 Allergy status to narcotic agent; Z88.8 Allergy status to other drugs, medicaments and biological substances; Z79.899 Other long term (current) drug therapy
CPT/HCPCS: 36415; 71045; 71275; 80047; 80048; 80076; 82550; 82553; 82803; 83605; 83735; 83880; 84145; 84436; 84443; 84484; 85014; 85018; 85025; 85610; 85730; 86738; 86850; 86900; 86901; 87040; 87486; 87581; 87633; 87798; 93005; 93041; 94760; 96365; 96375; 96376; 97161; 99285; G0378; J0692; J0696; J1271; J7512; Q9967

== ENCOUNTER → 2024-10-27 | Outpatient (CLI) | payer MEDICARE ==
[~2024-10-27] MED LIST changes: +ASPI81TA26 PO; +AZIT500T5 PO; +CEFD1CAP9 PO; +PRED20TA PO; +VENTAER INH
== END ==
LOC: M RAD 14:39
PROVIDERS: ATTEND Physician Assistant
DX: N28.1 Cyst of kidney, acquired (principal); N13.30 Unspecified hydronephrosis

== ENCOUNTER 2024-11-03 16:03 | Observation (INO) | payer MEDICARE ==
[~2024-11-03] VITALS: Ht 160 cm; Wt 60.2 kg
[~2024-11-03 16:03] MED LIST changes: -PRED20TA PO; -VENTAER INH
[2024-11-03 17:55] LABS: BASO # 0.1 10^3/uL (0.0-0.2); BASO % 0.6 % (0.0-1.0); EOS # 0.0 10^3/uL (0.0-0.5); EOS % 0.1 % (0.0-3.0); LYMPH # 1.2 10^3/uL (1.5-5.0); LYMPH % 10.8 % (24.0-44.0); MONO # 0.2 10^3/uL (0.0-0.8); MONO % 1.8 % (2.0-8.0); NEUTROPHILS # 9.6 10^3/uL (1.5-8.5); NEUTROPHILS % 85.7 % (36.0-66.0); PLATELET COUNT, AUTOMATED 241 10^3/uL (150-450)
[2024-11-03 18:05] LABS: CK-MB VALUE MASS 1.0 NG/ML (<3.6)
[2024-11-03 18:06] LABS: CPK CREATINE PHOSPHOKINASE 21.0 U/L (34-145); MB/CK RELATIVE INDEX 4.76 (< OR =4)
[2024-11-03 18:07] LABS: ALT/SGPT 20.0 U/L (7.0-40); AST/SGOT 27.0 U/L (<34); CALCIUM LEVEL 9.2 MG/DL (8.3-10.6); CARBON DIOXIDE LEVEL 28.0 MMOL/L (20-31); CHLORIDE LEVEL 105.0 MMOL/L (98-107); CREATININE FOR GFR 1.02 MG/DL (0.55-1.30); GLOMERULAR FILTRATION RATE 55.6 (>32); POTASSIUM SERUM 4.4 MMOL/L (3.5-5.1); SODIUM LEVEL 138.0 MMOL/L (136-145)
[2024-11-03] MEDS ORDERED: ISOVUE-370 76% 100 ML VIAL As Ordered ONE (18:29)
[2024-11-03 18:50] LABS: KETONE, URINE AUTO RFX NEGATIVE (NEGATIVE); LEUKOCYTE ESTERASE UR AUTO RFX NEGATIVE (NEGATIVE); MUCUS, URINE RFX SMALL (NEGATIVE); NITRITE, URINE AUTO RFX NEGATIVE (NEGATIVE); RBC, URINE AUTO RFX 2 /HPF (0-3); SQUAM EPITHELIAL CELL UR AURFX 1 /HPF (0-6); WBC, URINE AUTO RFX 1 /HPF (0-3)
[2024-11-03] MEDS: PIPERACILLIN/TAZOBACTAM SOD 4.5 GM in DEXTROSE 5% (D5W) ADV/MINI-BAG 50 ML IV ONE (19:17)
[2024-11-03 19:19] LABS: CK-MB VALUE MASS 1.0 NG/ML (<3.6)
[2024-11-03 19:26] LABS: CPK CREATINE PHOSPHOKINASE 24.0 U/L (34-145); MB/CK RELATIVE INDEX 4.16 (< OR =4)
[2024-11-03 20:29] VITALS: O2SAT 76
[2024-11-03 21:00] LABS: CK-MB VALUE MASS < 1.0 NG/ML (<3.6)
[2024-11-03 21:01] LABS: CPK CREATINE PHOSPHOKINASE 18 U/L (34-145)
[2024-11-03] MEDS ORDERED: HOME MED LIST COMPLETE! XX SCH (21:15)
[2024-11-03] MEDS: APIXABAN 2.5 MG TAB PO SCH (23:11)
[2024-11-03] MEDS: predniSONE 20 MG TAB PO ONE (23:12)
[2024-11-04] VITALS (7 sets, daily range): BP systolic 118–150; BP diastolic 60–86; TEMP 96–98.2; O2SAT 91–98
[2024-11-04] MEDS ORDERED: PILL CUTTER 1 EACH XX PRN (04:20)
[2024-11-04] MEDS: ACETAMINOPHEN 325 MG TAB PO PRN (04:22)
[2024-11-04] MEDS: FUROSEMIDE 40 MG/4 ML VIAL IV ONE (09:35)
[2024-11-04] MEDS: ASPIRIN 81 MG ENTERIC TABLET PO SCH (09:35)
[2024-11-04] MEDS: predniSONE 20 MG TAB PO SCH (12:53)
[2024-11-04 14:39] LABS: PLATELET COUNT, AUTOMATED 258 10^3/uL (150-450)
[2024-11-04 14:56] LABS: CALCIUM LEVEL 8.8 MG/DL (8.3-10.6); CARBON DIOXIDE LEVEL 29.0 MMOL/L (20-31); CHLORIDE LEVEL 103.0 MMOL/L (98-107); CREATININE FOR GFR 0.98 MG/DL (0.55-1.30); GLOMERULAR FILTRATION RATE 58.4 (>32); POTASSIUM SERUM 3.7 MMOL/L (3.5-5.1); SODIUM LEVEL 139.0 MMOL/L (136-145)
[2024-11-04] MEDS ORDERED: PRED20TA PO (16:19)
[2024-11-04] MEDS ORDERED: VENTAER INH (16:20)
== END 2024-11-04 18:46 | disposition home or self-care (01) ==
LOC: M ED 16:03 → M ED INP 16:04 → M MS4PR 11-04 00:45
PROVIDERS: ADMIT Student in an Organized Health Care Education/Training Program; ATTEND Student in an Organized Health Care Education/Training Program
DX: J84.9 Interstitial pulmonary disease, unspecified (principal); Z66 Do not resuscitate; G25.0 Essential tremor; J96.21 Acute and chronic respiratory failure with hypoxia; Z99.81 Dependence on supplemental oxygen; I27.20 Pulmonary hypertension, unspecified; R03.0 Elevated blood-pressure reading, without diagnosis of hypertension; R00.0 Tachycardia, unspecified; Z86.718 Personal history of other venous thrombosis and embolism; Z79.01 Long term (current) use of anticoagulants; Z79.82 Long term (current) use of aspirin; Z79.52 Long term (current) use of systemic steroids; Z88.5 Allergy status to narcotic agent
CPT/HCPCS: 36415; 71045; 71275; 80048; 80076; 81001; 82550; 82553; 83605; 83880; 84145; 84484; 85025; 85027; 87040; 87486; 87581; 87633; 87798; 93005; 93041; 94760; 96365; 96366; 97161; 99285; G0378; J1938; J2543; J7512; Q9967

== ENCOUNTER → 2024-12-06 | Outpatient (REF) | payer MEDICARE ==
[~2024-12-06] MED LIST changes: +PRED20TA PO; +VENTAER INH
[2024-12-06 17:55] LABS: PLATELET COUNT, AUTOMATED 301 10^3/uL (150-450)
[2024-12-06 18:20] LABS: CALCIUM LEVEL 9.5 MG/DL (8.3-10.6); CARBON DIOXIDE LEVEL 29.0 MMOL/L (20-31); CHLORIDE LEVEL 104.0 MMOL/L (98-107); CREATININE FOR GFR 1.04 MG/DL (0.55-1.30); GLOMERULAR FILTRATION RATE 54.3 (>32); IRON (FE) 42.0 UG/DL (50-170); PERCENT SATURATION 14.2 % (13.2-45.0); POTASSIUM SERUM 3.9 MMOL/L (3.5-5.1); SODIUM LEVEL 144.0 MMOL/L (136-145)
== END ==
LOC: M LABDRAWC 17:29
PROVIDERS: ATTEND Nurse Practitioner Acute Care
DX: I50.9 Heart failure, unspecified (principal); I50.810 Right heart failure, unspecified

== ENCOUNTER → 2025-01-11 | Outpatient (REF) | payer MEDICARE ==
[2025-01-11 18:33] LABS: CHOLESTEROL LEVEL 267.0 MG/DL (<200); CHOLESTEROL RISK RATIO 2.75 (<5); LDL CHOLESTEROL 143.4 MG/DL (<100); NON-HDL-C 170.2 MG/DL; TRIGLYCERIDES LEVEL 134.0 MG/DL (<150)
== END ==
LOC: M LABDRAWC 17:12
PROVIDERS: ATTEND Nurse Practitioner Acute Care
DX: I25.10 Atherosclerotic heart disease of native coronary artery without angina pectoris (principal)

== ENCOUNTER → 2025-01-11 | Outpatient (REF) | payer MEDICARE ==
[2025-01-11 18:33] LABS: CALCIUM LEVEL 9.4 MG/DL (8.3-10.6); CARBON DIOXIDE LEVEL 31.0 MMOL/L (20-31); CHLORIDE LEVEL 102.0 MMOL/L (98-107); CREATININE FOR GFR 1.12 MG/DL (0.55-1.30); GLOMERULAR FILTRATION RATE 49.7 (>32); POTASSIUM SERUM 4.3 MMOL/L (3.5-5.1); SODIUM LEVEL 144.0 MMOL/L (136-145)
== END ==
LOC: M LABDRAWC 17:13
PROVIDERS: ATTEND Nurse Practitioner Acute Care
DX: I50.9 Heart failure, unspecified (principal)